=== PATIENT | male | born 1955 ===

== ENCOUNTER 2025-10-24 20:22 | Outpatient (REF) | payer MEDICARE, SELFPAY ==
--- OUTSIDE RECORDS SUMMARY | 2025-10-24 10:30 | XMS_ITS | Encounter Summary ---
Author Organization [facility] Address [address] [place] [address] Care Team Providers Care Gauge Maker Apprentice Name Role Phone Mich Grimes Primary Care Provider [phone] Encounter Details Date Type Department Care Team (Late st Contact Info) Description 10/24/2025 10:30 AM EST Office Visit [facility] Heart & Vascular [facility] [address] [place] [address] [phone] Felipe Sweeney MD [address] [address] Chronic heart failure with reduced ejection fraction (HFrEF, <= 40%) and combined systolic and diastolic dysfunction (HCC) (Primary Dx); Type 2 diabetes mellitus without complication, without long-term current use of insulin (HCC) Social History Tobacco Use Types Packs/Day Years Used Date Smoking Tobacco: Every Day Cigarettes 0.3 16.7 Started: 02/27/2009 Smokeless Tobacco: Former Quit: 03/07/2024 Tobacco Cessation:Ready to Q uit: Not Asked; Counseling Given: Not Answered Comments:Down to 5 a day; nicotine patch in place Alcohol Use Standard Drinks/Week Comments Not Currently 0 (1 standard drink = 0.6 oz pur e alcohol) Sex and Gender Information Value Date Recorded Sex Assigned at Male 04/11/2024 10:17 AM EDT Legal Sex Male 3:27 PM EDT Gender Identity Male 04/11/2024 10:17 AM EDT Sexual Orientation Heterosexual (straight) 04/11 10:17 AM EDT documented as of this encounter Last Filed Vital Signs Vital Sign Reading Time Taken Comments Blood Pressure 121/57 10/24/2025 10:32 AM EST Pulse 59 10/24/2025 10:32 AM EST Temperature - - Respiratory Rate - - Oxygen Saturation 100% 10/24/2025 10:32 AM EST Inhaled Oxygen Concentration - - Weight 93.9 kg (207 lb) 10/24/2025 10:32 AM EST Height 180.3 cm (5' 11 ) 10/24/2025 10:32 AM EST Body Mass Index 28.87 10/24/2025 10:32 AM EST documented in this encounter Patient Instructions * Patient Instructions* Felipe Sweeney MD - 10/24/2025 11:40 AM EST Increase metoprolol to 100 mg daily Stop Losartan Start Entresto 1 pill twice a day We will stop milrinone and maintain the line for 5-7 days and if you continue to feel well and no new change then we will make arrangements for your to get rid of the line as well Call if any issues [phone] Email: [email or web address] Follow up in 3 months or as needed earlier documented in this encounter Plan of Treatment Upcoming Encounters Date Type Department Care Team (Late st Contact Info) Description 01/27/2026 11:00 AM EDT Office Visit [facility] Heart & Vascular [place] [facility] [address] [place], [place] [address] [place] [phone] Felipe Sweeney MD [address] [place] [phone] documented as of this encounter Visit Diagnoses Diagnosis Chronic heart failure with reduced ejection fraction (HFrEF, <= 40%) and combined systolic and diastolic dysfunction (HCC)- Primary Type 2 diabetes mellitus without complication, without long-term current use of insulin (HCC) documented in this encounter Care Teams Gauge Maker Apprentice Relationship Specialty Start Date End Date Mich Grimes PA [address] [place] [address] PCP - General Adult Health - DANIELLA/JUAN/RADIOLOGICAL ENGINEER/[place] 03/07/24 documented as of this encounter
--- OUTSIDE RECORDS SUMMARY | 2025-10-24 20:38 | XMS_ITS | Encounter Summary ---
Author Organization [facility] Address [facility] [address] [place] [phone] Phone Care Team Providers Care Portfolio Mgr Name Role Phone Priya Kyle MD Unavailable [phone] Encounter Details Date Type Department Care Team (Late st Contact Info) Description 06/26/2023 Procedure Pass [facility] MR Imaging, [place] [address] [place] [address] Social History Tobacco Use Types Packs/Day Years Used Date Smoking Tobacco: Every Day Cigarettes 0.3 13 Started: 2012 Alcohol Use Standard Drinks/Week Comments Yes 1 (1 standard drink = 0.6 oz pur e alcohol) Home Health Assessment: Transportation Answer Date Recorded Lack of Transportation (Medical) No 05/20/2023 Lack of Transportation (Non-Medical) No 05/20/2023 Patient Unable or Declines to Respond No 05/20/2023 Child or Family Care Answer Date Record ed Do you have problems with on e of the following making it difficult for you to work, study, or receive health care? No 06/01/2023 Education Answer Date Recorded Are you interested in help w ith more adult education (for example, completing high school, GED, job training, learning the Korean language, technical skills, or developing parenting skills)? No 06/01/2023 Are you concerned about learning? Not on file 06/01/2023 No 06/01/2023 Yes 06/01/2023 Food Answer Date Recorded Within the past 6 months we worried whether our food would run out before we got money to buy more. Never True 06/01/2023 Within the past 6 months the food we bought just didn't last and we didn't have enough money to get more. Never True Residential Stability Answer Date Recor ded What is your housing situation today? I have crista james 06/01/2023 How many times have you move d in the past 12 months? Zero (I did not move) 06/01/2023 Paying for Meds Answer Date Recorded Do you have trouble paying for medicines? Yes 06/01/2023 Paying Utility Bills Answer Date Record ed Do you have trouble paying your heating or elect ricity bill? No 06/01/2023 Transportation Answer Date Recorded Has the lack of transportati on kept you from medical appointments or from getting medications? Yes 06/01/2023 Unemployment Answer Date Recorded Are you currently unemployed or working on a part-time or temporary basis, and looking for work? No 10/06/2022 Digital Access Answer Date Recorded No 06/01/2023 Yes 06/01/2023 Do you have reliable internet access at home? Ye s 06/01/2023 Do you have a device (e.g., phone, tablet, computer) with a working camera? Yes 06/01/2023 Sex and Gender Information Value Date Recorded Sex Assigned at Not on file Legal Sex Male 3:56 PM EDT Gender Identity Not on file Sexual Orientation Not on file documented as of this encounter Plan of Treatment Not on file documented as of this encounter Visit Diagnoses Not on filedocumented in this encounter Additional Health Concerns Assessment Noted Time PHQ-2 Depression Total Score: 0 10/17/20 22 1:35 PM EST documented as of this encounter Care Teams Portfolio Mgr Relationship Specialty Start Date End Date Priya Kyle MD [address] [place] [phone] [email or web address] Attributed Provider 11/12/22 03/15/24 documented as of this encounter Additional Source Comments The information contained in this document represents components of the legal health record. It is not the complete legal health record.[facility]
--- OUTSIDE RECORDS SUMMARY | 2025-10-24 20:38 | XMS_ITS | Encounter Summary ---
Author Organization [facility] Address [facility] [email or web address] [facility] [address] [place] [address] Phone Care Team Providers Care Traffic Operations Engineer Name Role Phone Priya Kyle MD Unavailable [phone] Encounter Details Date Type Department Care Team (Late st Contact Info) Description 06/26/2023 Procedure Pass [facility] MR Imaging, [place] [address] [place] [address] Social History Tobacco Use Types Packs/Day Years [...] high school, GED, job training, learning the Serbian language, technical skills, or developing parenting skills)? [...] documented as of this encounter Care Teams Traffic Operations Engineer Relationship Specialty Start Date End Date Priya Kyle MD [address] [place] [phone] [email or web address] Attributed Provider 11/12/22 03/15/24 documented as of this encounter Additional Source Comments The information contained in this document represents components of the legal health record. It is not the complete legal health record.[facility]
--- OUTSIDE RECORDS SUMMARY | 2025-10-24 20:38 | XMS_ITS | Encounter Summary ---
Author Organization [employer] [facility] Address [address] [place] [address] Phone Care Team Providers Care Alligator Hunter Name Role Phone Priya Kyle MD Unavailable [phone] Encounter Details Date Type Department Care Team (Late st Contact Info) Description 07/21/2023 Procedure Pass [facility]' Cardiac Yeast Culture Operator [address] [place] [address] Social History Tobacco Use Types Packs/Day Years Used Date Smoking Tobacco: Every Day Cigarettes 0.3 13 Started: 2012 Smokeless Tobacco: Never Alcohol Use Standard Drinks/Week Comments Yes 1 [...] high school, GED, job training, learning the Arabic language, technical skills, or developing parenting skills)? [...] documented as of this encounter Care Teams Alligator Hunter Relationship Specialty Start Date End Date Priya Kyle MD [address] [place] [address] [email or web address] Attributed Provider 11/12/22 03/15/24 documented as of this encounter Additional Source Comments The information contained in this document represents components of the legal health record. It is not the complete legal health record.[facility]
--- OUTSIDE RECORDS SUMMARY | 2025-10-24 20:38 | XMS_ITS | Encounter Summary ---
Author Organization [facility] Address [address] [place] [address] Care Team Providers Care Airplane Cleaner Name Role Phone Mich Grimes Primary Care Provider [phone] Encounter Details Date Type Department Care Team (Late st Contact Info) Description 03/06/2024 Scanned Document [facility] [address] [place] [phone] Provider, Generic Social History Tobacco Use Types Packs/Day Years Used Date Smoking Tobacco: Never Assessed Sex and Gender Information Value Date Recorded Sex Assigned at Male 04/11/2024 10:17 AM EDT Legal Sex Male 3:27 PM EDT Gender Identity Male 04/11/2024 10:17 AM EDT Sexual Orientation Heterosexual (straight) 04/11 10:17 AM EDT documented as of this encounter Plan of Treatment Upcoming Encounters Date Type Department Care Team (Late st Contact Info) Description 01/27/2026 11:00 AM EDT Office Visit [facility] Heart [facility] 85 [facility] [address] [place] [phone] Felipe Sweeney MD [address] [address] documented as of this encounter Visit Diagnoses Not on filedocumented in this encounter Care Teams Airplane Cleaner Relationship Specialty Start Date End Date Mich Grimes PA [address] [place] [address] PCP - General Adult Health - [place]/APNP/LEAN SIX SIGMA BLACK BELT/FRAME FEEDER 03/07/24 documented as of this encounter
--- OUTSIDE RECORDS SUMMARY | 2025-10-24 20:38 | XMS_ITS | Encounter Summary ---
Author Organization [facility] Address [facility] [employer] [facility] [address] [place] [address] Phone Care Team Providers Care Coastal And Estuary Specialist Name Role Phone Priya Kyle MD Unavailable [phone] Encounter Details Date Type Department Care Team (Late st Contact Info) Description 06/26/2023 Procedure Pass [facility] MR Imaging, [place] [address] [place] [address] Social History Tobacco Use Types Packs/Day Years [...] high school, GED, job training, learning the Hungarian language, technical skills, or developing parenting skills)? [...] documented as of this encounter Care Teams Coastal And Estuary Specialist Relationship Specialty Start Date End Date Priya Kyle MD [address] [place] [phone] [email or web address] Attributed Provider 11/12/22 03/15/24 documented as of this encounter Additional Source Comments The information contained in this document represents components of the legal health record. It is not the complete legal health record.[facility]
--- OUTSIDE RECORDS SUMMARY | 2025-10-24 20:38 | XMS_ITS ---
Author Name [facility] Organization Unknown Results Test Name/Text Value Interpretation Date Range Source PHOSPHORUS 3.7 mg/dL 09/19/20 25 2.4 - 4.8 [facility] INTACT PARATHYROID HORMONE 254.0 pg/mL Above high normal 09/19/20 25 15 - 88 [facility] VITAMIN D, 25H 9.0 ng/mL Below low normal 09/19/20 25 - [facility] BICARBONATE 16.0 mmol/L Below low normal 09/19/20 25 23 - 32 [facility] POTASSIUM 4.9 mmol/L 09/19/20 25 3.6 - 5.1 [facility] CALCIUM, TOTAL 9.0 mg/dL 09/19/20 25 8.4 - 10.2 [facility] GLUCOSE 170.0 mg/dL 09/19/20 25 70 - 200 [facility] GLOMERULAR FILTRATION RATE ML/MIN/1.73 SQ M.PREDICTED 30.0 mL/min/1.73m*2 Below low normal 09/19/20 25 60 - [facility] ANION GAP 10.0 mmol/L 09/19/20 25 3 - 11 [facility] CREATININE 2.3 mg/dL Above high normal 09/19/20 25 0.6 - 1.2 [facility] UREA NITROGEN 46.0 mg/dL Above high normal 09/19/20 25 8 - 24 [facility] CHLORIDE 109.0 mmol/L 09/19/20 25 100 - 111 [facility] SODIUM 135.0 mmol/L Below low normal 09/19/20 25 137 - 144 [facility] MICROALBUMIN/CREATINI NE 48.0 mg/g Creat Above high normal 09/19/20 25 2 - 20 [facility] CREATININE, RANDOM 104.0 mg/dL 09/19/20 25 [facility] MICROALBUMIN, URINE, RANDOM 5.0 mg/dL 09/19/20 25 [facility] PROTEIN, RANDOM URINE 18.0 mg/dL [facility] PROTEIN / CREATININE RATIO 0.17 Ratio 09/19/20 - 0.2 [facility] CLARITY OF URINE Clear 09/19/20 - [facility] UROBILINOGEN, URINE 0.2 EU/dL 09/19/20 0.2 - 1 [facility] RBC 0-2 09/19/20 0 - 2 [facility] EPITHELIAL CELLS None Seen 09/19/20 - [facility] HEMOGLOBIN, URINE Negative 09/19/20 - [facility] LEUKOCYTE ESTERASE Negative 09/19/20 - [facility] COLOR OF URINE Yellow 09/19/20 - [facility] KETONES URINE Negative 09/19/20 - [facility] PH OF URINE 5.0 09/19/20 5 - 8 [facility] SYSMEX CASTS 0-2 09/19/20 - [facility] PROTEIN QUAL Trace 09/19/20 - [facility] BILIRUBIN, URINE Negative 09/19/20 - [facility] WBC 0-5 09/19/20 0 - 5 [facility] NITRITE Negative 09/19/20 - [facility] GLUCOSE QUAL >=1000 Abnormal 09/19/20 - [facility] SPECIFIC GRAVITY 1.02 09/19/20 - [facility] BACTERIA None Seen 09/19/20 - [facility] HEMOGLOBIN 11.3 g/dL Below low normal 09/19/20 13 - 18 [facility] HEMATOCRIT 33.8 % Below low normal 09/19/20 40 - 52 [facility] PROTEIN, POC Negative 08/05/20 - [facility] MACHINE PULLER ID [id number] 08/05/20 [facility] INSTRUMENT ID [id number] 08/05/20 [facility] TEST STRIP EXP DATE 08/05/20 [facility] GLUCOSE URINE, POC 250.0 mg/dL Abnormal 08/05/20 - [facility] KETONES URINE Negative 08/05/20 - [facility] TEST STRIP LOT # 08/05/20 [facility] LEUKOCYTE, POC Negative 08/05/20 - [facility] BILI, POC Negative 08/05/20 - [facility] BLOOD, URINE, POC Negative 08/05/20 - [facility] COLOR, POC Yellow 09/30/20 25 - [facility] SPECIFIC GRAVITY, POC 1.01 25 1.003 - 1.035 [facility] PH, POC 5.5 08/05/20 25 5 - 8 [facility] UROBILINOGEN, POC 0.2 EU/dL 08/05/20 25 - [facility] CLARITY, POC Clear 08/05/20 25 - [facility] NITRITE, POC Negative 08/05/20 25 - [facility] HEMOGLOBIN A1C POC 7.7 % 03/21/20 25 - [facility] POCT GLUCOSE 180.0 mg/dL Normal 02/08/20 25 70 - 200 [facility] POCT GLUCOSE 140.0 mg/dL Normal 02/08/20 25 70 - 200 [facility] MAGNESIUM 2.1 mg/dL Normal 02/08/20 25 1.8 - 3 [facility] ANION GAP 15.0 mmol/L Above high normal 02/08/20 25 3 - 11 [facility] SODIUM 138.0 mmol/L Normal 02/08/20 25 137 - 144 [facility] CREATININE 2.8 mg/dL Above high normal 02/08/20 25 0.6 - 1.2 [facility] CALCIUM, TOTAL 9.4 mg/dL Normal 02/08/20 25 8.4 - 10.2 [facility] CHLORIDE 97.0 mmol/L Below low normal 02/08/20 25 100 - 111 [facility] GLUCOSE 135.0 mg/dL Normal 02/08/20 25 70 - 200 [facility] UREA NITROGEN 58.0 mg/dL Above high normal 02/08/20 25 8 - 24 [facility] BICARBONATE 26.0 mmol/L Normal 02/08/20 25 23 - 32 [facility] GLOMERULAR FILTRATION RATE ML/MIN/1.73 SQ M.PREDICTED 24.0 mL/min/1.73m*2 Below low normal 02/08/20 25 60 - [facility] POTASSIUM 3.7 mmol/L Normal 02/08/20 25 3.6 - 5.1 [facility] PHOSPHORUS 4.0 mg/dL Normal 02/08/20 25 2.4 - 4.8 [facility] HEMATOCRIT 31.2 % Below low normal 02/08/20 25 40 - 52 [facility] MCH 31.2 pg Normal 02/08/20 25 26 - 34 [facility] RED CELL COUNT 3.33 10*6/ L Below low normal 02/08/20 25 4.4 - 5.9 [facility] MCV 93.7 fL Normal 02/08/20 25 80 - 100 [facility] IPF % 7.9 % Normal 02/08/20 25 1 - 7.9 [facility] PLATELET COUNT 141.0 10*3/uL Below low normal 02/08/20 25 150 - 440 [facility] HEMOGLOBIN 10.4 g/dL Below low normal 02/08/20 25 13 - 18 [facility] RBC DISTRIBUTION WIDTH 11.7 % Normal 02/08/20 25 11.6 - 14.8 [facility] WHITE CELL COUNT 8.4 10*3/uL Normal 02/08/20 25 3.8 - 10.6 [facility] MPV 12.7 fL Above high normal 02/08/20 25 9.4 - 12.4 [facility] MCHC 33.3 g/dL Normal 02/08/20 25 32 - 36 [facility] AUTO NRBC % 0.0 % Normal 02/08/20 25 0 - 0 [facility] POCT GLUCOSE 159.0 mg/dL Normal 02/08/20 25 70 - 200 [facility] CALCIUM, TOTAL 9.7 mg/dL Normal 02/07/20 25 8.4 - 10.2 [facility] GLOMERULAR FILTRATION RATE ML/MIN/1.73 SQ M.PREDICTED 24.0 mL/min/1.73m*2 Below low normal 02/07/20 25 60 - [facility] CHLORIDE 98.0 mmol/L Below low normal 02/07/20 25 100 - 111 [facility] SODIUM 136.0 mmol/L Below low normal 02/07/20 25 137 - 144 [facility] UREA NITROGEN 59.0 mg/dL Above high normal 02/07/20 25 8 - 24 [facility] GLUCOSE 169.0 mg/dL Normal 02/07/20 25 70 - 200 [facility] POTASSIUM 4.4 mmol/L Normal 02/07/20 25 3.6 - 5.1 [facility] ANION GAP 13.0 mmol/L Above high normal 02/07/20 25 3 - 11 [facility] BICARBONATE 25.0 mmol/L Normal 02/07/20 25 23 - 32 [facility] CREATININE 2.8 mg/dL Above high normal 02/07/20 25 0.6 - 1.2 [facility] PHOSPHORUS 3.9 mg/dL Normal 02/07/20 25 2.4 - 4.8 [facility] MAGNESIUM 2.2 mg/dL Normal 02/07/20 25 1.8 - 3 [facility] POCT GLUCOSE 195.0 mg/dL Normal 02/07/20 25 70 - 200 [facility] POCT GLUCOSE 204.0 mg/dL Above high normal 02/07/20 25 70 - 200 [facility] POCT GLUCOSE 141.0 mg/dL Normal 02/07/20 25 70 - 200 [facility] MAGNESIUM 2.1 mg/dL Normal 02/07/20 25 1.8 - 3 [facility] POTASSIUM 3.5 mmol/L Below low normal 02/07/20 25 3.6 - 5.1 [facility] UREA NITROGEN 54.0 mg/dL Above high normal 02/07/20 25 8 - 24 [facility] ANION GAP 14.0 mmol/L Above high normal 02/07/20 25 3 - 11 [facility] CALCIUM, TOTAL 9.1 mg/dL Normal 02/07/20 25 8.4 - 10.2 [facility] GLUCOSE 163.0 mg/dL Normal 02/07/20 25 70 - 200 [facility] GLOMERULAR FILTRATION RATE ML/MIN/1.73 SQ M.PREDICTED 25.0 mL/min/1.73m*2 Below low normal 02/07/20 25 60 - [facility] CHLORIDE 98.0 mmol/L Below low normal 02/07/20 25 100 - 111 [facility] SODIUM 139.0 mmol/L Normal 02/07/20 25 137 - 144 [facility] CREATININE 2.7 mg/dL Above high normal 02/07/20 25 0.6 - 1.2 [facility] BICARBONATE 27.0 mmol/L Normal 02/07/20 25 23 - 32 [facility] PHOSPHORUS 4.1 mg/dL Normal 02/07/20 25 2.4 - 4.8 [facility] HEMOGLOBIN 10.2 g/dL Below low normal 02/07/20 25 13 - 18 [facility] MCV 93.5 fL Normal 02/07/20 25 80 - 100 [facility] MCH 31.7 pg Normal 02/07/20 25 26 - 34 [facility] HEMATOCRIT 30.1 % Below low normal 02/07/20 25 40 - 52 [facility] WHITE CELL COUNT 6.4 10*3/uL Normal 02/07/20 25 3.8 - 10.6 [facility] AUTO NRBC % 0.0 % Normal 02/07/20 25 0 - 0 [facility] MPV 12.0 fL Normal 02/07/20 25 9.4 - 12.4 [facility] RBC DISTRIBUTION WIDTH 11.6 % Normal 02/07/20 25 11.6 - 14.8 [facility] PLATELET COUNT 136.0 10*3/uL Below low normal 02/07/20 25 150 - 440 [facility] IPF % 6.3 % Normal 02/07/20 25 1 - 7.9 [facility] MCHC 33.9 g/dL Normal 02/07/20 25 32 - 36 [facility] RED CELL COUNT 3.22 10*6/ L Below low normal 02/07/20 25 4.4 - 5.9 [facility] POCT GLUCOSE 202.0 mg/dL Above high normal 02/07/20 25 70 - 200 [facility] PHOSPHORUS 4.0 mg/dL Normal 02/07/20 25 2.4 - 4.8 [facility] MAGNESIUM 2.3 mg/dL Normal 02/07/20 25 1.8 - 3 [facility] GLUCOSE 160.0 mg/dL Normal 02/07/20 25 70 - 200 [facility] SODIUM 138.0 mmol/L Normal 02/07/20 25 137 - 144 [facility] CALCIUM, TOTAL 9.8 mg/dL Normal 02/07/20 25 8.4 - 10.2 [facility] GLOMERULAR FILTRATION RATE ML/MIN/1.73 SQ M.PREDICTED 26.0 mL/min/1.73m*2 Below low normal 02/07/20 25 60 - [facility] CREATININE 2.6 mg/dL Above high normal 02/07/20 25 0.6 - 1.2 [facility] POTASSIUM 4.2 mmol/L Normal 02/07/20 25 3.6 - 5.1 [facility] UREA NITROGEN 54.0 mg/dL Above high normal 02/07/20 25 8 - 24 [facility] CHLORIDE 96.0 mmol/L Below low normal 02/07/20 25 100 - 111 [facility] ANION GAP 15.0 mmol/L Above high normal 02/07/20 25 3 - 11 [facility] BICARBONATE 27.0 mmol/L Normal 02/07/20 25 23 - 32 [facility] POCT GLUCOSE 151.0 mg/dL Normal 02/06/20 25 70 - 200 [facility] POCT GLUCOSE 204.0 mg/dL Above high normal 02/06/20 25 70 - 200 [facility] POCT GLUCOSE 131.0 mg/dL Normal 02/06/20 25 70 - 200 [facility] LACTIC ACID 0.8 mmol/L Normal 02/06/20 25 0.5 - 1.9 [facility] CHLORIDE 99.0 mmol/L Below low normal 02/06/20 25 100 - 111 [facility] SODIUM 139.0 mmol/L Normal 02/06/20 25 137 - 144 [facility] GLOMERULAR FILTRATION RATE ML/MIN/1.73 SQ M.PREDICTED 25.0 mL/min/1.73m*2 Below low normal 02/06/20 25 60 - [facility] CREATININE 2.7 mg/dL Above high normal 02/06/20 25 0.6 - 1.2 [facility] ANION GAP 13.0 mmol/L Above high normal 02/06/20 25 3 - 11 [facility] CALCIUM, TOTAL 9.2 mg/dL Normal 02/06/20 25 8.4 - 10.2 [facility] GLUCOSE 120.0 mg/dL Normal 02/06/20 25 70 - 200 [facility] BICARBONATE 27.0 mmol/L Normal 02/06/20 25 23 - 32 [facility] POTASSIUM 3.4 mmol/L Below low normal 02/06/20 25 3.6 - 5.1 [facility] UREA NITROGEN 54.0 mg/dL Above high normal 02/06/20 25 8 - 24 [facility] PHOSPHORUS 4.1 mg/dL Normal 02/06/20 25 2.4 - 4.8 [facility] MAGNESIUM 1.9 mg/dL Normal 02/06/20 25 1.8 - 3 [facility] MPV 12.3 fL Normal 02/06/20 25 9.4 - 12.4 [facility] MCH 31.2 pg Normal 02/06/20 25 26 - 34 [facility] IPF % 7.0 % Normal 02/06/20 25 1 - 7.9 [facility] RED CELL COUNT 3.27 10*6/ L Below low normal 02/06/20 25 4.4 - 5.9 [facility] HEMATOCRIT 31.0 % Below low normal 02/06/20 25 40 - 52 [facility] RBC DISTRIBUTION WIDTH 11.8 % Normal 02/06/20 25 11.6 - 14.8 [facility] WHITE CELL COUNT 6.5 10*3/uL Normal 02/06/20 25 3.8 - 10.6 [facility] PLATELET COUNT 141.0 10*3/uL Below low normal 02/06/20 25 150 - 440 [facility] MCV 94.8 fL Normal 02/06/20 25 80 - 100 [facility] HEMOGLOBIN 10.2 g/dL Below low normal 02/06/20 25 13 - 18 [facility] MCHC 32.9 g/dL Normal 02/06/20 25 32 - 36 [facility] AUTO NRBC % 0.0 % Normal 02/06/20 25 0 - 0 [facility] PH OF VENOUS BLOOD 7.461 Above high normal 12/26 25 7.2 - 7.4 [facility] DEOXYHEMOGLOBIN VENOUS 37.0 % Above high normal 02/06/20 25 0 - 5 [facility] TOTAL HEMOGLOBIN 11.3 g/dL Below low normal 0 25 14 - 18 [facility] ACTUAL BICARBONATE (MMOL/L) IN VENOUS BLOOD 30.2 mmol/L Above high normal 02/06/20 25 22 - 26 [facility] CARBOXYHEMOGLOBIN % 1.3 % Normal 02/06/20 25 0.5 - 3 [facility] BAROMETRIC PRESSURE 760.0 mmHg Normal 02/06/20 25 [facility] PARTIAL PRESSURE CARBON DIOXIDE IN VENOUS BLOOD 43.4 mmHg Normal 02/06/20 25 40 - 50 [facility] OXYHEMOGLOBIN 61.4 % Below low normal 02/06/20 25 95 - 100 [facility] BASE EXCESS (MMOL/L) IN VENOUS BLOOD BY CALCULATION 5.8 mmol/L Above high normal 02/06/20 25 - [facility] METHEMOGLOBIN % IN BLOOD 0.3 % Normal 02/06/20 25 0 - 1.5 [facility] PARTIAL PRESSURE OF OXYGEN (MMHG) IN VENOUS 33.1 mmHg Below low normal 02/06/20 25 35 - 50 [facility] MEASURED O2 SATURATION (%) VENOUS 62.4 % Below low normal 02/06/20 25 90 - 100 [facility] BG OXYGEN DEVICE Room Air Normal 02/06/20 25 [facility] OXYGEN CONTENT IN VENOUS 9.7 mL/dL Below low normal 02/06/20 25 15 - 23 [facility] FRACTIONAL INSPIRED OXYGEN CONCENTRATION Normal 02/06/20 25 [facility] POCT GLUCOSE 179.0 mg/dL Normal 02/06/20 25 70 - 200 [facility] POCT GLUCOSE 156.0 mg/dL Normal 02/05/20 25 70 - 200 [facility] MAGNESIUM 2.0 mg/dL Normal 02/05/20 25 1.8 - 3 [facility] LACTIC ACID 1.1 mmol/L Normal 02/05/20 25 0.5 - 1.9 [facility] CALCIUM, TOTAL 9.2 mg/dL Normal 02/05/20 25 8.4 - 10.2 [facility] CHLORIDE 99.0 mmol/L Below low normal 02/05/20 25 100 - 111 [facility] UREA NITROGEN 51.0 mg/dL Above high normal 02/05/20 25 8 - 24 [facility] CREATININE 2.8 mg/dL Above high normal 02/05/20 25 0.6 - 1.2 [facility] GLUCOSE 169.0 mg/dL Normal 02/05/20 25 70 - 200 [facility] POTASSIUM 4.1 mmol/L Normal 02/05/20 25 3.6 - 5.1 [facility] GLOMERULAR FILTRATION RATE ML/MIN/1.73 SQ M.PREDICTED 24.0 mL/min/1.73m*2 Below low normal 02/05/20 25 60 - [facility] SODIUM 136.0 mmol/L Below low normal 02/05/20 25 137 - 144 [facility] ANION GAP 12.0 mmol/L Above high normal 02/05/20 25 3 - 11 [facility] BICARBONATE 25.0 mmol/L Normal 02/05/20 25 23 - 32 [facility] POCT GLUCOSE 206.0 mg/dL Above high normal 02/05/20 25 70 - 200 [facility] POCT GLUCOSE 160.0 mg/dL Normal 02/05/20 25 70 - 200 [facility] IRON SATURATION (%) IN SER/PLAS 9.0 % Normal 02/05/20 25 [facility] IRON 35.0 ug/dL Below low normal 02/05/20 25 48 - 182 [facility] IRON BINDING CAPACITY 390.0 ug/dL Normal 25 260 - 490 [facility] FERRITIN 33.0 ng/mL Normal 02/05/20 25 16 - 336 [facility] BICARBONATE 24.0 mmol/L Normal 02/05/20 25 23 - 32 [facility] ANION GAP 15.0 mmol/L Above high normal 02/05/20 25 3 - 11 [facility] GLUCOSE 150.0 mg/dL Normal 02/05/20 25 70 - 200 [facility] CREATININE 2.8 mg/dL Above high normal 02/05/20 25 0.6 - 1.2 [facility] POTASSIUM 4.0 mmol/L Normal 02/05/20 25 3.6 - 5.1 [facility] CHLORIDE 98.0 mmol/L Below low normal 02/05/20 25 100 - 111 [facility] CALCIUM, TOTAL 9.4 mg/dL Normal 02/05/20 25 8.4 - 10.2 [facility] UREA NITROGEN 53.0 mg/dL Above high normal 02/05/20 25 8 - 24 [facility] SODIUM 137.0 mmol/L Normal 02/05/20 25 137 - 144 [facility] GLOMERULAR FILTRATION RATE ML/MIN/1.73 SQ M.PREDICTED 24.0 mL/min/1.73m*2 Below low normal 02/05/20 25 60 - [facility] MAGNESIUM 2.0 mg/dL Normal 02/05/20 25 1.8 - 3 [facility] MCH 31.4 pg Normal 02/05/20 25 26 - 34 [facility] IMMATURE GRANULOCYTE % 0.2 % Normal 02/05/20 25 0 - 0.6 [facility] ABSOLUTE IMMATURE GRANULOCYTES 0.01 10*3/uL Normal 02/05/20 25 [facility] HEMATOCRIT 31.9 % Below low normal 02/05/20 25 40 - 52 [facility] MONOCYTE % 9.7 % Normal 02/05/20 25 4 - [address] [facility] [address] 0.79 10*3/uL Normal 02/05/20 25 0.7 - 4.5 [facility] LYMPHOCYTE % 12.6 % Below low normal 02/05/20 25 20 - [address] [facility] [address] 0.33 10*3/uL Above high normal 02/05/20 25 0 - 0.3 [facility] NEUTROPHIL % 71.8 % Above high normal 02/05/20 25 40 - 70 [facility] MCV 94.4 fL Normal 02/05/20 25 80 - 100 [facility] EOSINOPHIL % 5.2 % Normal 02/05/20 25 0 - 6 [facility] PLATELET COUNT 136.0 10*3/uL Below low normal 02/05/20 25 150 - 440 [facility] MCHC 33.2 g/dL Normal 02/05/20 25 32 - 36 [facility] RED CELL COUNT 3.38 10*6/ L Below low normal 02/05/20 25 4.4 - 5.9 [facility] MPV 13.2 fL Above high normal 02/05/20 25 9.4 - 12.[address] [facility] [address] 4.52 10*3/uL Normal 02/05/20 25 1.4 - 6.[address] [facility] [address] 0.03 10*3/uL Normal 0 25 0 - 0.2 [facility] IPF % 7.1 % Normal 02/05/20 25 1 - 7.9 [facility] RBC DISTRIBUTION WIDTH 11.9 % Normal 02/05/20 25 11.6 - 14.8 [facility] BASOPHILS % 0.5 % Normal 02/05/20 25 0 - 2 [facility] AUTO NRBC % 0.0 % Normal 02/05/20 25 0 - 0 [facility] HEMOGLOBIN 10.6 g/dL Below low normal 02/05/20 25 13 - [address] [facility] [address] 0.61 10*3/uL Normal 25 0.2 - 0.8 [facility] WHITE CELL COUNT 6.3 10*3/uL Normal 02/05/20 25 3.8 - 10.6 [facility] CREATININE, RANDOM 53.0 mg/dL Normal 02/05/20 25 [facility] SODIUM, RANDOM 79.0 mmol/L Normal 02/05/20 25 [facility] POTASSIUM, RANDOM 40.0 mmol/L Normal 02/05/20 25 [facility] CHLORIDE, RANDOM 95.0 mmol/L Normal 02/05/20 25 [facility] EPITHELIAL CELLS None Seen Normal 02/05/20 25 - [facility] WBC 0-5 Normal 02/05/20 25 0 - 5 [facility] PROTEIN QUAL Negative Normal 02/05/20 25 - [facility] SPECIFIC GRAVITY 1.01 Normal 02/05/20 25 - [facility] HEMOGLOBIN, URINE Negative Normal 02/05/20 25 - [facility] SYSMEX CASTS 0-2 Normal 02/05/20 25 - [facility] GLUCOSE QUAL >=1000 Abnormal 02/05/20 25 - [facility] RBC 0-2 Normal 02/05/20 25 0 - 2 [facility] UROBILINOGEN, URINE 0.2 EU/dL Normal 02/05/20 0.2 - 1 [facility] BILIRUBIN, URINE Negative Normal 02/05/20 - [facility] PH OF URINE 6.5 Normal 02/05/20 5 - 8 [facility] LEUKOCYTE ESTERASE Negative Normal 02/05/20 25 - [facility] BACTERIA None Seen Normal 02/05/20 25 - [facility] COLOR OF URINE Yellow Normal 02/05/20 - [facility] KETONES URINE Negative Normal 02/05/20 - [facility] NITRITE Negative Normal 02/05/20 25 - [facility] CLARITY OF URINE Clear Normal 02/05/20 25 - [facility] IRON BINDING CAPACITY 392.0 ug/dL Normal 260 - 490 [facility] IRON SATURATION (%) IN SER/PLAS 6.0 % Normal 02/05/20 [facility] IRON 25.0 ug/dL Below low normal 02/05/20 48 - 182 [facility] FERRITIN 32.0 ng/mL Normal 02/05/20 16 - 336 [facility] POCT GLUCOSE 142.0 mg/dL Normal 02/05/20 70 - 200 [facility] LACTIC ACID 1.7 mmol/L Normal 02/05/20 0.5 - 1.9 [facility] IRON BINDING CAPACITY 389.0 ug/dL Normal 260 - 490 [facility] IRON 24.0 ug/dL Below low normal 02/05/20 48 - 182 [facility] FERRITIN 32.0 ng/mL Normal 02/05/20 16 - 336 [facility] IRON SATURATION (%) IN SER/PLAS 6.0 % Normal 02/05/20 [facility] THYROID STIM HORMONE 2.95 uIU/mL Normal 0 25 0.35 - 4.94 [facility] POCT GLUCOSE 248.0 mg/dL Above high normal 02/04/20 70 - 200 [facility] MACHINE PULLER ID [id number] Normal 02/04/20 [facility] INSTRUMENT ID [id number] Normal 02/04/20 [facility] OXYHEMOGLOBIN - HBO2 (%) 57.4 % Normal 02/04/20 40 - 90 [facility] SITE Pulmonary artery wedge Normal 02/03 [facility] OXYHEMOGLOBIN - HBO2 (%) 57.9 % Normal 02/04/20 [facility] INSTRUMENT ID [id number] Normal 02/04/20 25 [facility] SITE Pulmonary artery Normal 02/04/20 [facility] MACHINE PULLER ID [id number] Normal 02/04/20 [facility] SITE Right atrium Normal 02/04/20 [facility] MACHINE PULLER ID [id number] Normal 02/04/20 [facility] INSTRUMENT ID [id number] Normal 02/04/20 [facility] OXYHEMOGLOBIN - HBO2 (%) 58.2 % Normal 02/04/20 25 40 - 90 [facility] MACHINE PULLER ID [id number] Normal 02/04/20 [facility] OXYHEMOGLOBIN - HBO2 (%) 60.1 % Normal 02/04/20 40 [facility] INSTRUMENT ID [id number] Normal 02/04/20 [facility] SITE Superior vena cava Normal 02/04/20 25 [facility] POCT GLUCOSE 166.0 mg/dL Normal 02/04/20 70 - 200 [facility] POCT GLUCOSE 198.0 mg/dL Normal 02/04/20 25 70 - 200 [facility] THYROID STIM HORMONE 3.3 uIU/mL Normal 0 25 0.35 - 4.94 [facility] AST (SGOT) 14.0 U/L Below low normal 02/04/20 25 17 - 35 [facility] ALT (SGPT) 16.0 U/L Normal 02/04/20 8 - 39 [facility] ALKALINE PHOSPHATASE 85.0 U/L Normal 0 25 39 - 113 [facility] ALBUMIN, AUTOMATED 4.0 g/dL Normal 02/04/20 25 3.8 - 5.3 [facility] PROTEIN TOTAL 6.7 g/dL Normal 02/04/20 25 6.2 - 8.1 [facility] BILIRUBIN, DIRECT 0.3 mg/dL Normal 02/04/20 25 0 - 0.5 [facility] BILIRUBIN, TOTAL 0.7 mg/dL Normal 02/04/20 25 0.1 - 1.2 [facility] GLUCOSE 214.0 mg/dL Above high normal 02/04/20 25 70 - 200 [facility] CREATININE 2.8 mg/dL Above high normal 02/04/20 25 0.6 - 1.2 [facility] CHLORIDE 100.0 mmol/L Normal 02/04/20 25 100 - 111 [facility] GLOMERULAR FILTRATION RATE ML/MIN/1.73 SQ M.PREDICTED 24.0 mL/min/1.73m*2 Below low normal 02/04/20 25 60 - [facility] SODIUM 138.0 mmol/L Normal 02/04/20 25 137 - 144 [facility] UREA NITROGEN 54.0 mg/dL Above high normal 02/04/20 25 8 - 24 [facility] ANION GAP 14.0 mmol/L Above high normal 02/04/20 25 3 - 11 [facility] POTASSIUM 4.3 mmol/L Normal 02/04/20 25 3.6 - 5.1 [facility] CALCIUM, TOTAL 9.2 mg/dL Normal 02/04/20 25 8.4 - 10.2 [facility] BICARBONATE 24.0 mmol/L Normal 02/04/20 25 23 - [address] [facility] [address] 0.76 10*3/uL Normal 25 0.2 - 0.8 [facility] ABSOLUTE IMMATURE GRANULOCYTES 0.02 10*3/uL Normal 02/04/20 25 [facility] MCH 31.4 pg Normal 02/04/20 25 26 - 34 [facility] LYMPHOCYTE % 11.8 % Below low normal 02/04/20 25 20 - 50 [facility] BASOPHILS % 0.7 % Normal 02/04/20 25 0 - 2 [facility] MPV 13.0 fL Above high normal 02/04/20 25 9.4 - 12.4 [facility] HEMOGLOBIN 10.3 g/dL Below low normal 02/04/20 25 13 - 18 [facility] IMMATURE GRANULOCYTE % 0.3 % Normal 02/04/20 25 0 - 0.[address] [facility] [address] 4.69 10*3/uL Normal 02/04/20 25 1.4 - 6.[address] [facility] [address] 0.79 10*3/uL Normal 02/04/20 25 0.7 - 4.5 [facility] HEMATOCRIT 30.9 % Below low normal 02/04/20 25 40 - 52 [facility] RED CELL COUNT 3.28 10*6/ L Below low normal 02/04/20 25 4.4 - 5.[address] [facility] [address] 0.05 10*3/uL Normal 0 25 0 - 0.[address] [facility] [address] 0.36 10*3/uL Above high normal 02/04/20 25 0 - 0.3 [facility] MCHC 33.3 g/dL Normal 02/04/20 25 32 - 36 [facility] MCV 94.2 fL Normal 02/04/20 25 80 - 100 [facility] AUTO NRBC % 0.0 % Normal 02/04/20 25 0 - 0 [facility] PLATELET COUNT 133.0 10*3/uL Below low normal 02/04/20 25 150 - 440 [facility] RBC DISTRIBUTION WIDTH 11.9 % Normal 02/04/20 25 11.6 - 14.8 [facility] NEUTROPHIL % 70.4 % Above high normal 02/04/20 25 40 - 70 [facility] WHITE CELL COUNT 6.7 10*3/uL Normal 02/04/20 25 3.8 - 10.6 [facility] EOSINOPHIL % 5.4 % Normal 02/04/20 25 0 - 6 [facility] IPF % 7.4 % Normal 02/04/20 25 1 - 7.9 [facility] MONOCYTE % 11.4 % Normal 02/04/20 25 4 - 12 [facility] POCT GLUCOSE 193.0 mg/dL Normal 02/04/20 25 70 - 200 [facility] POCT GLUCOSE 194.0 mg/dL Normal 02/03/20 25 70 - 200 [facility] POCT GLUCOSE 212.0 mg/dL Above high normal 02/03/20 25 70 - 200 [facility] POCT GLUCOSE 167.0 mg/dL Normal 02/03/20 25 70 - 200 [facility] BICARBONATE 23.0 mmol/L Normal 02/03/20 25 23 - 32 [facility] SODIUM 139.0 mmol/L Normal 02/03/20 25 137 - 144 [facility] CREATININE 2.5 mg/dL Above high normal 02/03/20 25 0.6 - 1.2 [facility] GLOMERULAR FILTRATION RATE ML/MIN/1.73 SQ M.PREDICTED 27.0 mL/min/1.73m*2 Below low normal 02/03/20 25 60 - [facility] CHLORIDE 101.0 mmol/L Normal 02/03/20 25 100 - 111 [facility] CALCIUM, TOTAL 9.4 mg/dL Normal 02/03/20 25 8.4 - 10.2 [facility] POTASSIUM 3.6 mmol/L Normal 02/03/20 25 3.6 - 5.1 [facility] UREA NITROGEN 56.0 mg/dL Above high normal 02/03/20 25 8 - 24 [facility] GLUCOSE 141.0 mg/dL Normal 02/03/20 25 70 - 200 [facility] ANION GAP 15.0 mmol/L Above high normal 02/03/20 25 3 - 11 [facility] PLATELET COUNT 138.0 10*3/uL Below low normal 02/03/20 25 150 - 440 [facility] IPF % 6.8 % Normal 02/03/20 25 1 - 7.9 [facility] MCV 94.3 fL Normal 02/03/20 25 80 - 100 [facility] MPV 12.9 fL Above high normal 02/03/20 25 9.4 - 12.4 [facility] HEMOGLOBIN 9.9 g/dL Below low normal 02/03/20 25 13 - 18 [facility] MCH 31.2 pg Normal 02/03/20 25 26 - 34 [facility] RED CELL COUNT 3.17 10*6/ L Below low normal 02/03/20 25 4.4 - 5.9 [facility] RBC DISTRIBUTION WIDTH 11.9 % Normal 02/03/20 25 11.6 - 14.8 [facility] MCHC 33.1 g/dL Normal 02/03/20 25 32 - 36 [facility] HEMATOCRIT 29.9 % Below low normal 02/03/20 25 40 - 52 [facility] WHITE CELL COUNT 5.4 10*3/uL Normal 02/03/20 25 3.8 - 10.6 [facility] AUTO NRBC % 0.0 % Normal 02/03/20 25 0 - 0 [facility] PHOSPHORUS 3.9 mg/dL Normal 02/03/20 25 2.4 - 4.8 [facility] MAGNESIUM 1.9 mg/dL Normal 02/03/20 25 1.8 - 3 [facility] POCT GLUCOSE 207.0 mg/dL Above high normal 02/03/20 25 70 - 200 [facility] CREATININE 2.5 mg/dL Above high normal 02/02/20 25 0.6 - 1.2 [facility] UREA NITROGEN 57.0 mg/dL Above high normal 02/02/20 25 8 - 24 [facility] ANION GAP 13.0 mmol/L Above high normal 02/02/20 25 3 - 11 [facility] BICARBONATE 24.0 mmol/L Normal 02/02/20 25 23 - 32 [facility] GLOMERULAR FILTRATION RATE ML/MIN/1.73 SQ M.PREDICTED 27.0 mL/min/1.73m*2 Below low normal 02/02/20 25 60 - [facility] GLUCOSE 213.0 mg/dL Above high normal 02/02/20 25 70 - 200 [facility] CHLORIDE 102.0 mmol/L Normal 02/02/20 25 100 - 111 [facility] SODIUM 139.0 mmol/L Normal 02/02/20 25 137 - 144 [facility] CALCIUM, TOTAL 9.7 mg/dL Normal 02/02/20 25 8.4 - 10.2 [facility] POTASSIUM 4.4 mmol/L Normal 02/02/20 25 3.6 - 5.1 [facility] POCT GLUCOSE 204.0 mg/dL Above high normal 02/02/20 25 70 - 200 [facility] POCT GLUCOSE 228.0 mg/dL Above high normal 02/02/20 25 70 - 200 [facility] POCT GLUCOSE 172.0 mg/dL Normal 02/02/20 25 70 - 200 [facility] MAGNESIUM 1.8 mg/dL Normal 02/02/20 25 1.8 - 3 [facility] PHOSPHORUS 4.2 mg/dL Normal 02/02/20 25 2.4 - 4.8 [facility] GLUCOSE 155.0 mg/dL Normal 02/02/20 25 70 - 200 [facility] UREA NITROGEN 58.0 mg/dL Above high normal 02/02/20 25 8 - 24 [facility] CHLORIDE 103.0 mmol/L Normal 02/02/20 25 100 - 111 [facility] POTASSIUM 3.6 mmol/L Normal 02/02/20 25 3.6 - 5.1 [facility] BICARBONATE 22.0 mmol/L Below low normal 02/02/20 25 23 - 32 [facility] GLOMERULAR FILTRATION RATE ML/MIN/1.73 SQ M.PREDICTED 27.0 mL/min/1.73m*2 Below low normal 02/02/20 25 60 - [facility] CREATININE 2.5 mg/dL Above high normal 02/02/20 25 0.6 - 1.2 [facility] ANION GAP 15.0 mmol/L Above high normal 02/02/20 25 3 - 11 [facility] CALCIUM, TOTAL 9.3 mg/dL Normal 02/02/20 25 8.4 - 10.2 [facility] SODIUM 140.0 mmol/L Normal 02/02/20 25 137 - 144 [facility] RBC DISTRIBUTION WIDTH 11.9 % Normal 02/02/20 25 11.6 - 14.8 [facility] PLATELET COUNT 159.0 10*3/uL Normal 02/02/20 25 150 - 440 [facility] AUTO NRBC % 0.0 % Normal 02/02/20 25 0 - 0 [facility] WHITE CELL COUNT 6.4 10*3/uL Normal 02/02/20 25 3.8 - 10.6 [facility] MPV 12.7 fL Above high normal 02/02/20 25 9.4 - 12.4 [facility] HEMOGLOBIN 10.2 g/dL Below low normal 02/02/20 25 13 - 18 [facility] MCV 93.6 fL Normal 02/02/20 25 80 - 100 [facility] MCH 31.1 pg Normal 02/02/20 25 26 - 34 [facility] HEMATOCRIT 30.7 % Below low normal 02/02/20 25 40 - 52 [facility] RED CELL COUNT 3.28 10*6/ L Below low normal 02/02/20 25 4.4 - 5.9 [facility] MCHC 33.2 g/dL Normal 02/02/20 25 32 - 36 [facility] POCT GLUCOSE 186.0 mg/dL Normal 02/02/20 25 70 - 200 [facility] POTASSIUM 4.1 mmol/L Normal 02/01/20 25 3.6 - 5.1 [facility] CREATININE 2.2 mg/dL Above high normal 02/01/20 25 0.6 - 1.2 [facility] CHLORIDE 104.0 mmol/L Normal 02/01/20 25 100 - 111 [facility] UREA NITROGEN 59.0 mg/dL Above high normal 02/01/20 25 8 - 24 [facility] SODIUM 138.0 mmol/L Normal 02/01/20 25 137 - 144 [facility] ANION GAP 14.0 mmol/L Above high normal 02/01/20 25 3 - 11 [facility] GLOMERULAR FILTRATION RATE ML/MIN/1.73 SQ M.PREDICTED 32.0 mL/min/1.73m*2 Below low normal 02/01/20 25 60 - [facility] BICARBONATE 20.0 mmol/L Below low normal 02/01/20 25 23 - 32 [facility] CALCIUM, TOTAL 9.0 mg/dL Normal 02/01/20 25 8.4 - 10.2 [facility] GLUCOSE 169.0 mg/dL Normal 02/01/20 25 70 - 200 [facility] POCT GLUCOSE 160.0 mg/dL Normal 02/01/20 25 70 - 200 [facility] SODIUM, RANDOM 119.0 mmol/L Normal 02/01/20 25 [facility] POCT GLUCOSE 178.0 mg/dL Normal 02/01/20 25 70 - 200 [facility] POCT GLUCOSE 129.0 mg/dL Normal 02/01/20 25 70 - 200 [facility] MCV 94.5 fL Normal 02/01/20 25 80 - 100 [facility] RBC DISTRIBUTION WIDTH 11.9 % Normal 02/01/20 25 11.6 - 14.8 [facility] MCH 31.5 pg Normal 02/01/20 25 26 - 34 [facility] RED CELL COUNT 3.27 10*6/ L Below low normal 02/01/20 25 4.4 - 5.9 [facility] MCHC 33.3 g/dL Normal 02/01/20 25 32 - 36 [facility] AUTO NRBC % 0.0 % Normal 02/01/20 25 0 - 0 [facility] PLATELET COUNT 158.0 10*3/uL Normal 02/01/20 25 150 - 440 [facility] HEMATOCRIT 30.9 % Below low normal 02/01/20 25 40 - 52 [facility] WHITE CELL COUNT 6.6 10*3/uL Normal 02/01/20 25 3.8 - 10.6 [facility] HEMOGLOBIN 10.3 g/dL Below low normal 02/01/20 25 13 - 18 [facility] MPV 12.9 fL Above high normal 02/01/20 25 9.4 - 12.4 [facility] PHOSPHORUS 4.1 mg/dL Normal 02/01/20 25 2.4 - 4.8 [facility] UREA NITROGEN 59.0 mg/dL Above high normal 02/01/20 25 8 - 24 [facility] CREATININE 2.4 mg/dL Above high normal 02/01/20 25 0.6 - 1.2 [facility] SODIUM 141.0 mmol/L Normal 02/01/20 25 137 - 144 [facility] POTASSIUM 3.5 mmol/L Below low normal 02/01/20 25 3.6 - 5.1 [facility] CHLORIDE 107.0 mmol/L Normal 02/01/20 25 100 - 111 [facility] GLUCOSE 117.0 mg/dL Normal 02/01/20 25 70 - 200 [facility] GLOMERULAR FILTRATION RATE ML/MIN/1.73 SQ M.PREDICTED 29.0 mL/min/1.73m*2 Below low normal 02/01/20 25 60 - [facility] ANION GAP 14.0 mmol/L Above high normal 02/01/20 25 3 - 11 [facility] CALCIUM, TOTAL 8.9 mg/dL Normal 02/01/20 25 8.4 - 10.2 [facility] BICARBONATE 20.0 mmol/L Below low normal 02/01/20 25 23 - 32 [facility] MAGNESIUM 1.7 mg/dL Below low normal 02/01/20 25 1.8 - 3 [facility] POCT GLUCOSE 215.0 mg/dL Above high normal 02/01/20 25 70 - 200 [facility] MAGNESIUM 1.6 mg/dL Below low normal 01/31/20 25 1.8 - 3 [facility] THYROXINE (T4) FREE 1.25 ng/dL Normal 01/31/20 25 [facility] THYROID STIM HORMONE 2.52 uIU/mL Normal 0 25 0.35 - 4.94 [facility] CREATININE 2.3 mg/dL Above high normal 01/31/20 25 0.6 - 1.2 [facility] POTASSIUM 3.8 mmol/L Normal 01/31/20 25 3.6 - 5.1 [facility] CHLORIDE 106.0 mmol/L Normal 01/31/20 25 100 - 111 [facility] BICARBONATE 20.0 mmol/L Below low normal 01/31/20 25 23 - 32 [facility] GLUCOSE 174.0 mg/dL Normal 01/31/20 25 70 - 200 [facility] SODIUM 141.0 mmol/L Normal 01/31/20 25 137 - 144 [facility] ANION GAP 15.0 mmol/L Above high normal 01/31/20 25 3 - 11 [facility] UREA NITROGEN 46.0 mg/dL Above high normal 01/31/20 25 8 - 24 [facility] GLOMERULAR FILTRATION RATE ML/MIN/1.73 SQ M.PREDICTED 30.0 mL/min/1.73m*2 Below low normal 01/31/20 25 60 - [facility] CALCIUM, TOTAL 9.2 mg/dL Normal 01/31/20 25 8.4 - 10.2 [facility] LACTIC ACID 1.3 mmol/L Normal 01/31/20 25 0.5 - 1.9 [facility] SODIUM, RANDOM 108.0 mmol/L Normal 01/31/20 25 [facility] UREA NITROGEN, RANDOM 205.0 mg/dL Normal 25 [facility] CREATININE, RANDOM 28.0 mg/dL Normal 01/31/20 25 [facility] MICROALBUMIN, URINE, RANDOM 5.5 mg/dL Normal 01/31/20 25 [facility] MICROALBUMIN/CREATINI NE 196.0 mg/g Creat Above high normal 01/31/20 25 2 - 20 [facility] POCT GLUCOSE 122.0 mg/dL Normal 01/31/20 25 70 - 200 [facility] ALKALINE PHOSPHATASE 89.0 U/L Normal 0 25 39 - 113 [facility] BILIRUBIN, DIRECT 0.2 mg/dL Normal 01/31/20 25 0 - 0.5 [facility] ALT (SGPT) 20.0 U/L Normal 01/31/20 25 8 - 39 [facility] PROTEIN TOTAL 6.1 g/dL Below low normal 01/31/20 25 6.2 - 8.1 [facility] ALBUMIN, AUTOMATED 3.6 g/dL Below low normal 01/30 25 3.8 - 5.3 [facility] AST (SGOT) 16.0 U/L Below low normal 01/31/20 25 17 - 35 [facility] BILIRUBIN, TOTAL 0.5 mg/dL Normal 01/31/20 25 0.1 - 1.2 [facility] TROPONIN I, HIGH SENSITIVITY 57.0 ng/L Above high normal 01/31/20 25 - [facility] FERRITIN 31.0 ng/mL Normal 01/31/20 25 16 - 336 [facility] IRON SATURATION (%) IN SER/PLAS 6.0 % Normal 01/31/20 25 [facility] IRON BINDING CAPACITY 369.0 ug/dL Normal 25 260 - 490 [facility] FERRITIN 31.0 ng/mL Normal 01/31/20 25 16 - 336 [facility] IRON 21.0 ug/dL Below low normal 01/31/20 25 48 - 182 [facility] TROPONIN I, HIGH SENSITIVITY 58.0 ng/L Above high normal 01/31/20 25 - [facility] MAGNESIUM 2.0 mg/dL Normal 01/31/20 25 1.8 - 3 [facility] BICARBONATE 20.0 mmol/L Below low normal 01/31/20 25 23 - 32 [facility] CHLORIDE 107.0 mmol/L Normal 01/31/20 25 100 - 111 [facility] GLUCOSE 236.0 mg/dL Above high normal 01/31/20 25 70 - 200 [facility] CALCIUM, TOTAL 9.3 mg/dL Normal 01/31/20 25 8.4 - 10.2 [facility] UREA NITROGEN 52.0 mg/dL Above high normal 01/31/20 25 8 - 24 [facility] GLOMERULAR FILTRATION RATE ML/MIN/1.73 SQ M.PREDICTED 29.0 mL/min/1.73m*2 Below low normal 01/31/20 25 60 - [facility] POTASSIUM 4.1 mmol/L Normal 01/31/20 25 3.6 - 5.1 [facility] SODIUM 138.0 mmol/L Normal 01/31/20 25 137 - 144 [facility] ANION GAP 11.0 mmol/L Normal 01/31/20 25 3 - 11 [facility] CREATININE 2.4 mg/dL Above high normal 01/31/20 25 0.6 - 1.[address] [facility] [address] 0.05 10*3/uL Normal 0 25 0 - 0.2 [facility] LYMPHOCYTE % 12.2 % Below low normal 01/31/20 25 20 - [address] [facility] [address] 0.72 10*3/uL Normal 25 0.2 - 0.8 [facility] MCHC 33.2 g/dL Normal 01/31/20 25 32 - 36 [facility] HEMOGLOBIN 10.9 g/dL Below low normal 01/31/20 25 13 - 18 [facility] MONOCYTE % 9.1 % Normal 01/31/20 25 4 - 12 [facility] HEMATOCRIT 32.8 % Below low normal 01/31/20 25 40 - 52 [facility] RBC DISTRIBUTION WIDTH 12.1 % Normal 01/31/20 25 11.6 - 14.[address] [facility] [address] 0.96 10*3/uL Normal 01/31/20 25 0.7 - 4.5 [facility] NEUTROPHIL % 71.1 % Above high normal 01/31/20 25 40 - [address] [facility] [address] 0.53 10*3/uL Above high normal 01/31/20 0 - 0.3 [facility] RED CELL COUNT 3.44 10*6/ L Below low normal 01/31/20 4.4 - 5.9 [facility] PLATELET COUNT 168.0 10*3/uL Normal 01/31/20 150 - [address] [facility] [address] 5.6 10*3/uL Normal 01/31/20 1.4 - 6.3 [facility] MPV 12.8 fL Above high normal 01/31/20 9.4 - 12.4 [facility] AUTO NRBC % 0.0 % Normal 01/31/20 0 - 0 [facility] WHITE CELL COUNT 7.9 10*3/uL Normal 01/31/20 3.8 - 10.6 [facility] ABSOLUTE IMMATURE GRANULOCYTES 0.02 10*3/uL Normal 01/31/20 [facility] MCV 95.3 fL Normal 01/31/20 80 - 100 [facility] EOSINOPHIL % 6.7 % Above high normal 01/31/20 0 - 6 [facility] IMMATURE GRANULOCYTE % 0.3 % Normal 01/31/20 0 - 0.6 [facility] BASOPHILS % 0.6 % Normal 01/31/20 0 - 2 [facility] MCH 31.7 pg Normal 01/31/20 26 - 34 [facility] NATRIURETIC PEPTIDE B (BNP) 1629.0 pg/mL Above high normal 01/31/20 0 - 100 [facility] ABSOLUTE IMMATURE GRANULOCYTES 0.03 10*3/uL Normal 01/29/[address] [facility] [address] 0.84 10*3/uL Above high normal 0 01/29/20 0.2 - 0.8 [facility] MPV 12.8 fL Above high normal 01/29/20 9.4 - 12.[address] [facility] [address] 0.1 10*3/uL Normal 0 25 0 - 0.2 [facility] HEMOGLOBIN 10.9 g/dL Below low normal 01/29/20 13 - [address] [facility] [address] 0.86 10*3/uL Above high normal 01/29/20 0 - 0.3 [facility] HEMATOCRIT 34.6 % Below low normal 01/29/20 40 - 52 [facility] RBC DISTRIBUTION WIDTH 12.2 % Normal 01/29/20 11.6 - 14.8 [facility] MCV 99.7 fL Normal 01/29/20 80 - 100 [facility] RED CELL COUNT 3.47 10*6/ L Below low normal 01/29/20 4.4 - 5.9 [facility] MCH 31.4 pg Normal 01/29/20 26 - 34 [facility] IMMATURE GRANULOCYTE % 0.3 % Normal 01/29/20 0 - 0.6 [facility] LYMPHOCYTE % 13.9 % Below low normal 01/29/20 20 - [address] [facility] [address] 5.82 10*3/uL Normal 01/29/20 1.4 - 6.[address] [facility] [address] 1.23 10*3/uL Normal 01/29/20 0.7 - 4.5 [facility] BASOPHILS % 1.1 % Normal 01/29/20 0 - 2 [facility] EOSINOPHIL % 9.7 % Above high normal 01/29/20 0 - 6 [facility] WHITE CELL COUNT 8.9 10*3/uL Normal 01/29/20 3.8 - 10.6 [facility] MCHC 31.5 g/dL Below low normal 01/29/20 32 - 36 [facility] AUTO NRBC % 0.0 % Normal 01/29/20 0 - 0 [facility] PLATELET COUNT 186.0 10*3/uL Normal 01/29/20 150 - 440 [facility] MONOCYTE % 9.5 % Normal 01/29/20 4 - 12 [facility] NEUTROPHIL % 65.5 % Normal 01/29/20 40 - 70 [facility] NATRIURETIC PEPTIDE B (BNP) 1238.0 pg/mL Above high normal 01/29/20 0 - 100 [facility] GYCOHEMOGLOBIN A1C 6.5 % Above high normal 01/05 4.4 - 6.4 [facility] CALCIUM, TOTAL 9.6 mg/dL Normal 01/29/20 8.4 - 10.2 [facility] ANION GAP 10.0 mmol/L Normal 01/29/20 3 - 11 [facility] BICARBONATE 22.0 mmol/L Below low normal 01/29/20 23 - 32 [facility] GLOMERULAR FILTRATION RATE ML/MIN/1.73 SQ M.PREDICTED 30.0 mL/min/1.73m*2 Below low normal 01/29/20 25 60 - [facility] SODIUM 142.0 mmol/L Normal 01/29/20 137 - 144 [facility] POTASSIUM 4.1 mmol/L Normal 01/29/20 3.6 - 5.1 [facility] ALBUMIN, AUTOMATED 4.1 g/dL Normal 01/29/20 3.8 - 5.3 [facility] UREA NITROGEN 52.0 mg/dL Above high normal 01/29/20 8 - 24 [facility] PHOSPHORUS 3.7 mg/dL Normal 01/29/20 2.4 - 4.8 [facility] GLUCOSE 66.0 mg/dL Below low normal 01/29/20 70 - 200 [facility] CREATININE 2.3 mg/dL Above high normal 01/29/20 0.6 - 1.2 [facility] CHLORIDE 110.0 mmol/L Normal 01/29/20 100 - 111 [facility] ALBUMIN, AUTOMATED 4.1 g/dL Normal 01/29/20 3.8 - 5.3 [facility] CREATININE 2.3 mg/dL Above high normal 01/29/20 0.6 - 1.2 [facility] AST (SGOT) 19.0 U/L Normal 01/29/20 17 - 35 [facility] SODIUM 142.0 mmol/L Normal 01/29/20 137 - 144 [facility] GLOMERULAR FILTRATION RATE ML/MIN/1.73 SQ M.PREDICTED 30.0 mL/min/1.73m*2 Below low normal 01/29/20 60 - [facility] UREA NITROGEN 52.0 mg/dL Above high normal 01/29/20 8 - 24 [facility] ALT (SGPT) 23.0 U/L Normal 01/29/20 8 - 39 [facility] BILIRUBIN, TOTAL 0.5 mg/dL Normal 01/29/20 0.1 - 1.2 [facility] BICARBONATE 22.0 mmol/L Below low normal 01/29/20 23 - 32 [facility] ANION GAP 10.0 mmol/L Normal 01/29/20 3 - 11 [facility] POTASSIUM 4.1 mmol/L Normal 01/29/20 3.6 - 5.1 [facility] PROTEIN TOTAL 6.9 g/dL Normal 01/29/20 25 6.2 - 8.1 [facility] CALCIUM, TOTAL 9.6 mg/dL Normal 01/29/20 25 8.4 - 10.2 [facility] GLUCOSE 66.0 mg/dL Below low normal 01/29/20 25 70 - 200 [facility] CHLORIDE 110.0 mmol/L Normal 01/29/20 25 100 - 111 [facility] ALKALINE PHOSPHATASE 91.0 U/L Normal 0 25 39 - 113 [facility] ANION GAP 10.0 mmol/L Normal 01/10/20 25 3 - 11 [facility] POTASSIUM 5.1 mmol/L Normal 01/10/20 25 3.6 - 5.1 [facility] GLUCOSE 127.0 mg/dL Normal 01/10/20 25 70 - 200 [facility] BICARBONATE 20.0 mmol/L Below low normal 01/10/20 25 23 - 32 [facility] GLOMERULAR FILTRATION RATE ML/MIN/1.73 SQ M.PREDICTED 30.0 mL/min/1.73m*2 Below low normal 01/10/20 25 60 - [facility] CHLORIDE 111.0 mmol/L Normal 01/10/20 25 100 - 111 [facility] UREA NITROGEN 38.0 mg/dL Above high normal 01/10/20 25 8 - 24 [facility] CALCIUM, TOTAL 9.7 mg/dL Normal 01/10/20 25 8.4 - 10.2 [facility] PHOSPHORUS 4.0 mg/dL Normal 01/10/20 25 2.4 - 4.8 [facility] ALBUMIN, AUTOMATED 4.1 g/dL Normal 01/10/20 25 3.8 - 5.3 [facility] CREATININE 2.3 mg/dL Above high normal 01/10/20 25 0.6 - 1.2 [facility] SODIUM 141.0 mmol/L Normal 01/10/20 25 137 - 144 [facility] ANION GAP 13.0 mmol/L Above high normal 12/06/19 25 3 - 11 [facility] GLOMERULAR FILTRATION RATE ML/MIN/1.73 SQ M.PREDICTED 34.0 mL/min/1.73m*2 Below low normal 12/06/19 25 60 - [facility] UREA NITROGEN 37.0 mg/dL Above high normal 12/06/19 25 8 - 24 [facility] SODIUM 142.0 mmol/L Normal 12/06/19 25 137 - 144 [facility] BICARBONATE 25.0 mmol/L Normal 12/06/19 25 23 - 32 [facility] CALCIUM, TOTAL 9.5 mg/dL Normal 12/06/19 25 8.4 - 10.2 [facility] CREATININE 2.1 mg/dL Above high normal 12/06/19 25 0.6 - 1.2 [facility] GLUCOSE 88.0 mg/dL Normal 12/06/19 25 70 - 200 [facility] POTASSIUM 3.8 mmol/L Normal 12/06/19 25 3.6 - 5.1 [facility] PHOSPHORUS 4.0 mg/dL Normal 12/06/19 25 2.4 - 4.8 [facility] ALBUMIN, AUTOMATED 3.9 g/dL Normal 12/06/19 3.8 - 5.3 [facility] CHLORIDE 104.0 mmol/L Normal 12/06/19 25 100 - 111 [facility] GLUCOSE 228.0 mg/dL Above high normal 11/28/19 25 70 - 200 [facility] POTASSIUM 3.9 mmol/L Normal 11/28/19 25 3.6 - 5.1 [facility] GLOMERULAR FILTRATION RATE ML/MIN/1.73 SQ M.PREDICTED 29.0 mL/min/1.73m*2 Below low normal 11/28/19 25 60 - [facility] CHLORIDE 104.0 mmol/L Normal 11/28/19 25 100 - 111 [facility] CREATININE 2.4 mg/dL Above high normal 11/28/19 25 0.6 - 1.2 [facility] ANION GAP 17.0 mmol/L Above high normal 11/28/19 25 3 - 11 [facility] CALCIUM, TOTAL 9.4 mg/dL Normal 11/28/19 25 8.4 - 10.2 [facility] ALBUMIN, AUTOMATED 4.2 g/dL Normal 11/28/19 25 3.8 - 5.3 [facility] PHOSPHORUS 3.8 mg/dL Normal 11/28/19 25 2.4 - 4.8 [facility] SODIUM 141.0 mmol/L Normal 11/28/19 25 137 - 144 [facility] BICARBONATE 20.0 mmol/L Below low normal 11/28/19 25 23 - 32 [facility] UREA NITROGEN 54.0 mg/dL Above high normal 11/28/19 25 8 - 24 [facility] NITRITE, POC Negative Normal 11/14/19 - [facility] LEUKOCYTE, POC Negative Normal 11/14/19 - [facility] PROTEIN, POC 30.0 mg/dL Abnormal 11/14/19 - [facility] TEST STRIP LOT # Normal 11/14/19 [facility] INSTRUMENT ID [id number] Normal 11/14/19 [facility] TEST STRIP EXP DATE Normal 11/14/19 [facility] PH, POC 5.5 Normal 11/14/19 5 - 8 [facility] BLOOD, URINE, POC Trace-intact Abnormal 11/14/19 - [facility] COLOR, POC Yellow Normal 11/14/19 - [facility] CLARITY, POC Clear Normal 11/14/19 - [facility] UROBILINOGEN, POC 0.2 EU/dL Normal 11/14/19 - [facility] MACHINE PULLER ID [id number] Normal 11/14/19 [facility] GLUCOSE URINE, POC 100.0 mg/dL Abnormal 11/14/19 - [facility] KETONES URINE Negative Normal 11/14/19 - [facility] BILI, POC Negative Normal 11/14/19 - [facility] SPECIFIC GRAVITY, POC 1.015 Normal 1.003 - 1.035 [facility] CALCIUM, TOTAL 8.1 mg/dL Below low normal 11/14/19 8.4 - 10.2 [facility] ALBUMIN, AUTOMATED 3.6 g/dL Below low normal 11/14 3.8 - 5.3 [facility] GLUCOSE 210.0 mg/dL Above high normal 11/14/19 70 - 200 [facility] ANION GAP 10.0 mmol/L Normal 11/14/19 3 - 11 [facility] PHOSPHORUS 4.1 mg/dL Normal 11/14/19 2.4 - 4.8 [facility] UREA NITROGEN 64.0 mg/dL Above high normal 11/14/19 8 - 24 [facility] CHLORIDE 104.0 mmol/L Normal 11/14/19 100 - 111 [facility] CREATININE 2.4 mg/dL Above high normal 11/14/19 0.6 - 1.2 [facility] GLOMERULAR FILTRATION RATE ML/MIN/1.73 SQ M.PREDICTED 29.0 mL/min/1.73m*2 Below low normal 11/14/19 60 - [facility] SODIUM 139.0 mmol/L Normal 11/14/19 137 - 144 [facility] BICARBONATE 25.0 mmol/L Normal 11/14/19 23 - 32 [facility] POTASSIUM 3.6 mmol/L Normal 11/14/19 3.6 - 5.1 [facility] INFLUENZA B PCR (CEPHEID) Not Detected Normal 11/03/20 [facility] SARS-COV-2 PCR ([employer]) Negative Normal 11/03/20 [facility] RSV PCR (CEPHEID) Not Detected Normal 11/03/20 [facility] INFLUENZA A PCR ([employer]) Not Detected Normal 11/03/20 [facility] POCT GLUCOSE 217.0 mg/dL Above high normal 11/03/20 70 - 200 [facility] POCT GLUCOSE 219.0 mg/dL Above high normal 11/03/20 70 - 200 [facility] CALCIUM, TOTAL 7.7 mg/dL Below low normal 11/03/20 8.4 - 10.2 [facility] UREA NITROGEN 41.0 mg/dL Above high normal 11/03/20 8 - 24 [facility] CHLORIDE 99.0 mmol/L Below low normal 11/03/20 100 - 111 [facility] POTASSIUM 3.3 mmol/L Below low normal 11/03/20 3.6 - 5.1 [facility] PHOSPHORUS 3.0 mg/dL Normal 11/03/20 2.4 - 4.8 [facility] BICARBONATE 27.0 mmol/L Normal 11/03/20 23 - 32 [facility] ANION GAP 9.0 mmol/L Normal 11/03/20 3 - 11 [facility] GLOMERULAR FILTRATION RATE ML/MIN/1.73 SQ M.PREDICTED 12.0 mL/min/1.73m*2 Below low normal 11/03/20 60 - [facility] SODIUM 135.0 mmol/L Below low normal 11/03/20 137 - 144 [facility] GLUCOSE 157.0 mg/dL Normal 11/03/20 70 - 200 [facility] ALBUMIN, AUTOMATED 2.9 g/dL Below low normal 11/03 3.8 - 5.3 [facility] CREATININE 4.9 mg/dL Above high normal 11/03/20 0.6 - 1.2 [facility] RBC DISTRIBUTION WIDTH 12.2 % Normal 11/03/20 11.6 - 14.8 [facility] PLATELET COUNT 181.0 10*3/uL Normal 11/03/20 150 - 440 [facility] WHITE CELL COUNT 12.3 10*3/uL Above high normal 3.8 - 10.6 [facility] HEMATOCRIT 24.6 % Below low normal 11/03/20 40 - 52 [facility] MCHC 35.0 g/dL Normal 11/03/20 32 - 36 [facility] AUTO NRBC % 0.0 % Normal 11/03/20 0 - 0 [facility] MCV 91.4 fL Normal 11/03/20 80 - 100 [facility] MCH 32.0 pg Normal 11/03/20 26 - 34 [facility] HEMOGLOBIN 8.6 g/dL Below low normal 11/03/20 13 - 18 [facility] RED CELL COUNT 2.69 10*6/ L Below low normal 11/03/20 4.4 - 5.9 [facility] POCT GLUCOSE 172.0 mg/dL Normal 11/03/20 70 - 200 [facility] POCT GLUCOSE 232.0 mg/dL Above high normal 11/03/20 70 - 200 [facility] POCT GLUCOSE 243.0 mg/dL Above high normal 11/02/20 70 - 200 [facility] POCT GLUCOSE 235.0 mg/dL Above high normal 11/02/20 24 70 - 200 [facility] POCT GLUCOSE 240.0 mg/dL Above high normal 11/02/20 24 70 - 200 [facility] MAGNESIUM 1.8 mg/dL Normal 11/02/20 1.8 - 3 [facility] ANION GAP 9.0 mmol/L Normal 11/02/20 3 - 11 [facility] PHOSPHORUS 3.3 mg/dL Normal 11/02/20 2.4 - 4.8 [facility] CHLORIDE 102.0 mmol/L Normal 11/02/20 100 - 111 [facility] ALBUMIN, AUTOMATED 2.8 g/dL Below low normal 11/02 3.8 - 5.3 [facility] GLUCOSE 223.0 mg/dL Above high normal 11/02/20 70 - 200 [facility] CREATININE 5.0 mg/dL Above high normal 11/02/20 0.6 - 1.2 [facility] SODIUM 138.0 mmol/L Normal 11/02/20 137 - 144 [facility] CALCIUM, TOTAL 7.9 mg/dL Below low normal 11/02/20 8.4 - 10.2 [facility] BICARBONATE 27.0 mmol/L Normal 11/02/20 23 - 32 [facility] POTASSIUM 3.6 mmol/L Normal 11/02/20 3.6 - 5.1 [facility] UREA NITROGEN 37.0 mg/dL Above high normal 11/02/20 8 - 24 [facility] GLOMERULAR FILTRATION RATE ML/MIN/1.73 SQ M.PREDICTED 12.0 mL/min/1.73m*2 Below low normal 11/02/20 60 - [facility] RBC DISTRIBUTION WIDTH 12.1 % Normal 11/02/20 11.6 - 14.8 [facility] AUTO NRBC % 0.0 % Normal 11/02/20 0 - 0 [facility] MCH 31.5 pg Normal 11/02/20 26 - 34 [facility] WHITE CELL COUNT 8.6 10*3/uL Normal 11/02/20 3.8 - 10.6 [facility] HEMATOCRIT 23.7 % Below low normal 11/02/20 40 - 52 [facility] MCHC 34.6 g/dL Normal 11/02/20 32 - 36 [facility] HEMOGLOBIN 8.2 g/dL Below low normal 11/02/20 13 - 18 [facility] PLATELET COUNT 134.0 10*3/uL Below low normal 11/02/20 150 - 440 [facility] MCV 91.2 fL Normal 11/02/20 80 - 100 [facility] RED CELL COUNT 2.6 10*6/ L Below low normal 11/02/20 4.4 - 5.9 [facility] POCT GLUCOSE 256.0 mg/dL Above high normal 11/02/20 70 - 200 [facility] POCT GLUCOSE 258.0 mg/dL Above high normal 11/01/20 70 - 200 [facility] POCT GLUCOSE 183.0 mg/dL Normal 11/01/20 70 - 200 [facility] POCT GLUCOSE 156.0 mg/dL Normal 11/01/20 70 - 200 [facility] GYCOHEMOGLOBIN A1C 6.6 % Above high normal 10/07 4.4 - 6.4 [facility] MAGNESIUM 1.7 mg/dL Below low normal 11/01/20 1.8 - 3 [facility] CHLORIDE 103.0 mmol/L Normal 11/01/20 100 - 111 [facility] ANION GAP 9.0 mmol/L Normal 11/01/20 3 - 11 [facility] POTASSIUM 3.1 mmol/L Below low normal 11/01/20 3.6 - 5.1 [facility] GLUCOSE 138.0 mg/dL Normal 11/01/20 70 - 200 [facility] ALBUMIN, AUTOMATED 2.6 g/dL Below low normal 11/01 3.8 - 5.3 [facility] GLOMERULAR FILTRATION RATE ML/MIN/1.73 SQ M.PREDICTED 12.0 mL/min/1.73m*2 Below low normal 11/01/20 60 - [facility] CREATININE 4.9 mg/dL Above high normal 11/01/20 0.6 - 1.2 [facility] BICARBONATE 26.0 mmol/L Normal 11/01/20 23 - 32 [facility] UREA NITROGEN 34.0 mg/dL Above high normal 11/01/20 8 - 24 [facility] CALCIUM, TOTAL 7.6 mg/dL Below low normal 11/01/20 8.4 - 10.2 [facility] PHOSPHORUS 3.3 mg/dL Normal 11/01/20 2.4 - 4.8 [facility] SODIUM 138.0 mmol/L Normal 11/01/20 137 - 144 [facility] RED CELL COUNT 2.58 10*6/ L Below low normal 11/01/20 4.4 - 5.9 [facility] RBC DISTRIBUTION WIDTH 12.3 % Normal 11/01/20 11.6 - 14.8 [facility] PLATELET COUNT 105.0 10*3/uL Below low normal 11/01/20 150 - 440 [facility] HEMOGLOBIN 8.1 g/dL Below low normal 11/01/20 13 - 18 [facility] MCH 31.4 pg Normal 11/01/20 26 - 34 [facility] AUTO NRBC % 0.0 % Normal 11/01/20 0 - 0 [facility] HEMATOCRIT 23.2 % Below low normal 12/27/20 24 40 - 52 [facility] MCV 89.9 fL Normal 11/01/20 80 - 100 [facility] MCHC 34.9 g/dL Normal 11/01/20 32 - 36 [facility] WHITE CELL COUNT 7.4 10*3/uL Normal 11/01/20 3.8 - 10.6 [facility] POCT GLUCOSE 211.0 mg/dL Above high normal 11/01/20 70 - 200 [facility] POCT GLUCOSE 246.0 mg/dL Above high normal 11/01/20 70 - 200 [facility] PLATELET COUNT 93.0 10*3/uL Below low normal 11/01/20 150 - 440 [facility] MCHC 35.3 g/dL Normal 11/01/20 32 - 36 [facility] WHITE CELL COUNT 6.3 10*3/uL Normal 11/01/20 3.8 - 10.6 [facility] MCV 89.8 fL Normal 11/01/20 80 - 100 [facility] HEMOGLOBIN 9.0 g/dL Below low normal 11/01/20 13 - 18 [facility] HEMATOCRIT 25.5 % Below low normal 11/01/20 40 - 52 [facility] MCH 31.7 pg Normal 11/01/20 26 - 34 [facility] AUTO NRBC % 0.0 % Normal 11/01/20 0 - 0 [facility] RBC DISTRIBUTION WIDTH 12.4 % Normal 11/01/20 11.6 - 14.8 [facility] RED CELL COUNT 2.84 10*6/ L Below low normal 11/01/20 4.4 - 5.9 [facility] POCT GLUCOSE 197.0 mg/dL Normal 10/31/20 70 - 200 [facility] UCONNPATH LAB AP GROSS DESCRIPTION Received fresh are multiple core-needle biopsies with the patient's name. The specimen is divided for light microscopy, direct immunofluorescence and electron microscopy. Normal 10/31/20 [facility] POCT GLUCOSE 154.0 mg/dL Normal 10/31/20 70 - 200 [facility] POCT GLUCOSE 159.0 mg/dL Normal 10/31/20 70 - 200 [facility] MAGNESIUM 1.9 mg/dL Normal 10/31/20 1.8 - 3 [facility] CALCIUM, TOTAL 7.6 mg/dL Below low normal 12/26/20 24 8.4 - 10.2 [facility] ALBUMIN, AUTOMATED 2.6 g/dL Below low normal 10/31 3.8 - 5.3 [facility] POTASSIUM 3.4 mmol/L Below low normal 10/31/20 3.6 - 5.1 [facility] BICARBONATE 25.0 mmol/L Normal 10/31/20 23 - 32 [facility] GLUCOSE 153.0 mg/dL Normal 10/31/20 70 - 200 [facility] CREATININE 4.7 mg/dL Above high normal 10/31/20 0.6 - 1.2 [facility] CHLORIDE 105.0 mmol/L Normal 10/31/20 100 - 111 [facility] GLOMERULAR FILTRATION RATE ML/MIN/1.73 SQ M.PREDICTED 13.0 mL/min/1.73m*2 Below low normal 10/31/20 60 - [facility] PHOSPHORUS 2.7 mg/dL Normal 10/31/20 2.4 - 4.8 [facility] ANION GAP 10.0 mmol/L Normal 10/31/20 3 - 11 [facility] UREA NITROGEN 34.0 mg/dL Above high normal 10/31/20 8 - 24 [facility] SODIUM 140.0 mmol/L Normal 10/31/20 137 - 144 [facility] ACTIVATED PARTIAL THROMBOPLASTIN TIME IN PPP BY COAGULATION ASSAY 28.6 seconds Normal 10/31/20 25.1 - 36.5 [facility] INR 1.0 ratio Normal 10/31/20 0.9 - 1.1 [facility] PROTHROMBIN TIME (PT) 11.9 seconds Normal 10.4 - 13 [facility] HEMOGLOBIN 8.9 g/dL Below low normal 10/31/20 13 - 18 [facility] MCH 32.0 pg Normal 10/31/20 26 - 34 [facility] MCHC 35.3 g/dL Normal 10/31/20 32 - 36 [facility] MCV 90.6 fL Normal 10/31/20 80 - 100 [facility] PLATELET COUNT 106.0 10*3/uL Below low normal 10/31/20 150 - 440 [facility] RED CELL COUNT 2.78 10*6/ L Below low normal 10/31/20 4.4 - 5.9 [facility] AUTO NRBC % 0.0 % Normal 10/31/20 0 - 0 [facility] RBC DISTRIBUTION WIDTH 12.0 % Normal 10/31/20 11.6 - 14.8 [facility] HEMATOCRIT 25.2 % Below low normal 10/31/20 40 - 52 [facility] WHITE CELL COUNT 8.6 10*3/uL Normal 10/31/20 3.8 - 10.6 [facility] POCT GLUCOSE 161.0 mg/dL Normal 10/31/20 70 - 200 [facility] ANTIBODY SCREEN NEG Normal 10/30/20 [facility] ABO GROUP (TYPE) IN BLOOD B Normal 10/30/20 [facility] RH TYPE IN BLOOD POS Normal 10/30/20 [facility] POCT GLUCOSE 232.0 mg/dL Above high normal 10/30/20 70 - 200 [facility] PHOSPHORUS 2.1 mg/dL Below low normal 10/30/20 2.4 - 4.8 [facility] ALBUMIN, AUTOMATED 2.7 g/dL Below low normal 10/30 3.8 - 5.3 [facility] SODIUM 139.0 mmol/L Normal 10/30/20 137 - 144 [facility] GLUCOSE 207.0 mg/dL Above high normal 10/30/20 70 - 200 [facility] POTASSIUM 3.6 mmol/L Normal 10/30/20 3.6 - 5.1 [facility] GLOMERULAR FILTRATION RATE ML/MIN/1.73 SQ M.PREDICTED 14.0 mL/min/1.73m*2 Below low normal 10/30/20 60 - [facility] CHLORIDE 106.0 mmol/L Normal 10/30/20 100 - 111 [facility] ANION GAP 8.0 mmol/L Normal 10/30/20 3 - 11 [facility] CREATININE 4.5 mg/dL Above high normal 10/30/20 0.6 - 1.2 [facility] UREA NITROGEN 33.0 mg/dL Above high normal 10/30/20 8 - 24 [facility] CALCIUM, TOTAL 7.5 mg/dL Below low normal 10/30/20 8.4 - 10.2 [facility] BICARBONATE 25.0 mmol/L Normal 10/30/20 23 - 32 [facility] AUTO NRBC % 0.0 % Normal 10/30/20 0 - 0 [facility] MCV 90.6 fL Normal 10/30/20 80 - 100 [facility] RBC DISTRIBUTION WIDTH 11.2 % Below low normal 10/30/20 11.6 - 14.8 [facility] MCHC 35.6 g/dL Normal 10/30/20 32 - 36 [facility] HEMATOCRIT 22.2 % Below low normal 10/30/20 40 - 52 [facility] RED CELL COUNT 2.45 10*6/ L Below low normal 10/30/20 4.4 - 5.9 [facility] MCH 32.2 pg Normal 10/30/20 26 - 34 [facility] WHITE CELL COUNT 7.1 10*3/uL Normal 10/30/20 3.8 - 10.6 [facility] HEMOGLOBIN 7.9 g/dL Below low normal 10/30/20 13 - 18 [facility] PLATELET COUNT 84.0 10*3/uL Below low normal 10/30/20 150 - 440 [facility] POCT GLUCOSE 268.0 mg/dL Above high normal 10/30/20 70 - 200 [facility] POCT GLUCOSE 189.0 mg/dL Normal 10/30/20 70 - 200 [facility] AUTO NRBC % 0.0 % Normal 10/30/20 0 - 0 [facility] MCV 87.6 fL Normal 10/30/20 80 - 100 [facility] RED CELL COUNT 2.33 10*6/ L Below low normal 10/30/20 4.4 - 5.9 [facility] RBC DISTRIBUTION WIDTH 11.3 % Below low normal 10/30/20 11.6 - 14.8 [facility] WHITE CELL COUNT 8.2 10*3/uL Normal 10/30/20 3.8 - 10.6 [facility] MCH 31.8 pg Normal 10/30/20 26 - 34 [facility] PLATELET COUNT 83.0 10*3/uL Below low normal 10/30/20 150 - 440 [facility] MCHC 36.3 g/dL Above high normal 10/30/20 32 - 36 [facility] HEMOGLOBIN 7.4 g/dL Below low normal 10/30/20 13 - 18 [facility] HEMATOCRIT 20.4 % Critically low 10/30/20 40 - 52 [facility] MAGNESIUM 1.7 mg/dL Below low normal 10/30/20 1.8 - 3 [facility] ANION GAP 10.0 mmol/L Normal 10/30/20 24 3 - 11 [facility] PHOSPHORUS 2.9 mg/dL Normal 10/30/20 2.4 - 4.8 [facility] CHLORIDE 102.0 mmol/L Normal 10/30/20 100 - 111 [facility] CALCIUM, TOTAL 7.2 mg/dL Below low normal 10/30/20 8.4 - 10.2 [facility] GLUCOSE 178.0 mg/dL Normal 10/30/20 70 - 200 [facility] GLOMERULAR FILTRATION RATE ML/MIN/1.73 SQ M.PREDICTED 8.0 mL/min/1.73m*2 Below low normal 10/30/20 60 - [facility] CREATININE 6.8 mg/dL Above high normal 10/30/20 0.6 - 1.2 [facility] ALBUMIN, AUTOMATED 2.4 g/dL Below low normal 10/30 3.8 - 5.3 [facility] BICARBONATE 25.0 mmol/L Normal 10/30/20 23 - 32 [facility] POTASSIUM 3.3 mmol/L Below low normal 10/30/20 3.6 - 5.1 [facility] UREA NITROGEN 60.0 mg/dL Above high normal 10/30/20 8 - 24 [facility] SODIUM 137.0 mmol/L Normal 10/30/20 137 - 144 [facility] POCT GLUCOSE 199.0 mg/dL Normal 10/30/20 70 - 200 [facility] POCT GLUCOSE 278.0 mg/dL Above high normal 10/29/20 70 - 200 [facility] GLOBULIN, 24 HR URINE 76.0 % Normal 24 - [facility] URINE PROTEIN QUANT 420.0 mg/24hr Above high normal 40 - 140 [facility] TIME (HOURS) 24.0 hrs Normal 10/29/20 [facility] UEP INTERPRETATION Normal 10/29/20 [facility] URINE PROTEIN/CREAT RATIO 311.0 mg/g creat Normal 10/29/20 [facility] CREATININE, URINE 24HR 1.35 g/24hr Normal 10/29/20 0.78 - 2.31 [facility] BENCE VARGAS PROTEIN, 24 HR Both albumin and globulins are present. No monoclonal or Bence-Vargas protein is detected in this urine immunofixation electrophoresis. Elkin Calderon MD Normal 10/29/20 [facility] TOTAL VOLUME 3000.0 mL Normal 10/29/20 [facility] ALBUMIN, 24 HR URINE 24.0 % Normal 0 24 - [facility] MICROALBUMIN (MG/24HR) IN 24 HOUR URINE 87.0 mg/d Above high normal 10/29/20 24 0 - 16.5 [facility] MICROALBUMIN 24HR UG/MIN 60.0 ug/min Above high normal 10/29/20 24 0 - 12 [facility] TOTAL VOLUME 3000.0 mL Normal 10/29/20 [facility] TIME (HOURS) 24.0 hrs Normal 10/29/20 [facility] TOTAL VOLUME 3000.0 mL Normal 10/29/20 [facility] CREATININE, SERUM 11.0 mg/dL Above high normal 10/29 24 0.8 - 1.2 [facility] CREATININE RENAL CLEARANCE IN 24 HOUR 9.0 mL/min Below low normal 10/29/20 90 - 139 [facility] TIME (HOURS) 24.0 hrs Normal 10/29/20 [facility] CREATININE, URINE - PER 24H FOR CRCL 1350.0 mg/24 H Normal 10/29/20 1040 - 2350 [facility] POCT GLUCOSE 172.0 mg/dL Normal 10/29/20 70 - 200 [facility] MYELOPEROX ANTIBODIES, IGG 0.0 AU/mL Normal 10/29/20 0 - 19 [facility] SERINE PROTEASE3, IGG 0.0 AU/mL Normal 0 - 19 [facility] KAPPA QNT FREE LIGHT CHAINS 107.38 mg/L Above high normal 10/29/20 3.3 - 19.4 [facility] LAMBDA QNT FREE LIGHT CHAINS 65.28 mg/L Above high normal 10/29/20 5.71 - 26.3 [facility] KAPPA/LAMBDA FREE LIGHT CHAIN RATIO 1.64 Normal 10/29/20 0.26 - 1.65 [facility] ALBUMIN INDEX 2.8 g/dL Below low normal 10/29/20 24 3.8 - 5.3 [facility] ALPHA 2 % 13.3 % Above high normal 10/29/20 8.6 - 13.1 [facility] ALPHA 1 % 5.5 % Above high normal 10/29/20 1.3 - 3.5 [facility] BETA 0.5 g/dL Below low normal 10/29/20 0.6 - 1.1 [facility] ALBUMIN % 57.5 % Normal 10/29/20 57.1 - 71.3 [facility] GAMMA % 12.8 % Normal 10/29/20 7.3 - 17 [facility] IMMUNOGLOBULIN M 74.0 mg/dL Normal 10/29/20 22 - 293 [facility] IMMUNOGLOBULIN A 141.0 mg/dL Normal 10/29/20 82 - 460 [facility] SIGNED OUT BY: Elkin Calderon MD Normal 10/29 [facility] IMMUNOGLOBULIN G 827.0 mg/dL Normal 10/29/20 624 - 1766 [facility] ALPHA 2 0.6 g/dL Normal 10/29/20 0.6 - 0.9 [facility] PROTEIN TOTAL 4.8 g/dL Below low normal 10/29/20 6.2 - 8.1 [facility] TPE INTERPRETATION NEW Normal 10/29/20 [facility] IMMUNOFIXATION Quantitatively IgG, IgA, and IgM are within the appropriate reference intervals. No abnormalities are noted on this immunofixation electrophoresis. Normal 10/29/20 [facility] % BETA 10.9 % Normal 10/29/20 8.9 - 14.9 [facility] GAMMA 0.6 g/dL Normal 10/29/20 0.5 - 1.2 [facility] ALPHA 1 0.3 g/dL Above high normal 10/29/20 0.1 - 0.2 [facility] JHOAN TITER 1 1:320 Abnormal 10/29/20 - [facility] JHOAN PATTERN Homogeneous Normal 10/29/20 [facility] ANTI-NUCLEAR ANTIBODY (JHOAN) Positive Abnormal 10/29/20 - [facility] MAGNESIUM 1.6 mg/dL Below low normal 10/29/20 1.8 - 3 [facility] ANION GAP 14.0 mmol/L Above high normal 10/29/20 3 - 11 [facility] UREA NITROGEN 107.0 mg/dL Above high normal 10/29/20 8 - 24 [facility] CALCIUM, TOTAL 7.2 mg/dL Below low normal 10/29/20 8.4 - 10.2 [facility] PHOSPHORUS 3.3 mg/dL Normal 10/29/20 2.4 - 4.8 [facility] ALBUMIN, AUTOMATED 2.7 g/dL Below low normal 10/29 3.8 - 5.3 [facility] CHLORIDE 100.0 mmol/L Normal 10/29/20 100 - 111 [facility] GLOMERULAR FILTRATION RATE ML/MIN/1.73 SQ M.PREDICTED 5.0 mL/min/1.73m*2 Below low normal 10/29/20 60 - [facility] CREATININE 11.0 mg/dL Above high normal 10/29/20 0.6 - 1.2 [facility] SODIUM 135.0 mmol/L Below low normal 10/29/20 137 - 144 [facility] GLUCOSE 188.0 mg/dL Normal 10/29/20 70 - 200 [facility] POTASSIUM 3.8 mmol/L Normal 10/29/20 3.6 - 5.1 [facility] BICARBONATE 21.0 mmol/L Below low normal 10/29/20 23 - 32 [facility] IMMUNOGLOBULIN A 141.0 mg/dL Normal 10/29/20 82 - 460 [facility] IMMUNOGLOBULIN M 74.0 mg/dL Normal 10/29/20 22 - 293 [facility] IMMUNOGLOBULIN G 827.0 mg/dL Normal 10/29/20 624 - 1766 [facility] ACTIVATED PARTIAL THROMBOPLASTIN TIME IN PPP BY COAGULATION ASSAY 30.1 seconds Normal 10/29/20 25.1 - 36.5 [facility] INR 1.0 ratio Normal 10/29/20 0.9 - 1.1 [facility] PROTHROMBIN TIME (PT) 11.8 seconds Normal 10.4 - 13 [facility] PLATELET COUNT 85.0 10*3/uL Below low normal 10/29/20 150 - 440 [facility] AUTO NRBC % 0.0 % Normal 10/29/20 0 - 0 [facility] WHITE CELL COUNT 10.8 10*3/uL Above high normal 3.8 - 10.6 [facility] MCHC 36.8 g/dL Above high normal 10/29/20 32 - 36 [facility] RED CELL COUNT 2.58 10*6/ L Below low normal 10/29/20 4.4 - 5.9 [facility] HEMATOCRIT 22.8 % Below low normal 10/29/20 40 - 52 [facility] MCV 88.4 fL Normal 10/29/20 80 - 100 [facility] HEMOGLOBIN 8.4 g/dL Below low normal 10/29/20 13 - 18 [facility] RBC DISTRIBUTION WIDTH 11.1 % Below low normal 10/29/20 11.6 - 14.8 [facility] MCH 32.6 pg Normal 10/29/20 26 - 34 [facility] POCT GLUCOSE 225.0 mg/dL Above high normal 10/29/20 70 - 200 [facility] POCT GLUCOSE 195.0 mg/dL Normal 10/29/20 70 - 200 [facility] POCT GLUCOSE 218.0 mg/dL Above high normal 10/28/20 70 - 200 [facility] POCT GLUCOSE 251.0 mg/dL Above high normal 10/28/20 70 - 200 [facility] POCT GLUCOSE 172.0 mg/dL Normal 10/28/20 70 - 200 [facility] HEPATITIS B VIRUS CORE AB, QUAL (IA5) Negative Normal 10/28/20 - [facility] HEPATITIS B SURFACE ANTIBODY Negative Normal 10/28/20 [facility] HEPATITIS B SURFACE AB, QUANT 0.1 mIU/mL Normal 10/28/20 24 - 12 [facility] HIV 1+2 AB + HIV1 P24 AG ([facility]ENCE) IN SERUM BY IMMUNOASSAY Negative Normal 10/28/20 - [facility] HEPATITIS B SURFACE ANTIGEN (IA5) Negative Normal 10/28/20 24 - [facility] HEPATITIS C ANTIBODY (IA5) Negative Normal 10/28/20 24 - [facility] COMPLEMENT C4 35.0 mg/dL Normal 10/28/20 16 - 66 [facility] COMPLEMENT C3 85.0 mg/dL Normal 10/28/20 67 - 154 [facility] C REACTIVE PROTEIN 34.8 mg/L Normal 10/28/20 [facility] CALCIUM, TOTAL 6.8 mg/dL Below low normal 10/28/20 8.4 - 10.2 [facility] CHLORIDE 99.0 mmol/L Below low normal 10/28/20 100 - 111 [facility] BICARBONATE 21.0 mmol/L Below low normal 10/28/20 23 - 32 [facility] POTASSIUM 3.4 mmol/L Below low normal 10/28/20 3.6 - 5.1 [facility] UREA NITROGEN 121.0 mg/dL Critically high 10/28/20 8 - 24 [facility] ANION GAP 14.0 mmol/L Above high normal 10/28/20 3 - 11 [facility] GLOMERULAR FILTRATION RATE ML/MIN/1.73 SQ M.PREDICTED 4.0 mL/min/1.73m*2 Below low normal 10/28/20 60 - [facility] SODIUM 134.0 mmol/L Below low normal 10/28/20 137 - 144 [facility] CREATININE 12.7 mg/dL Above high normal 10/28/20 0.6 - 1.2 [facility] GLUCOSE 157.0 mg/dL Normal 10/28/20 70 - 200 [facility] CREATINE KINASE 1334.0 U/L Above high normal 0 24 22 - 269 [facility] MAGNESIUM 1.3 mg/dL Below low normal 10/28/20 1.8 - 3 [facility] PHOSPHORUS 3.9 mg/dL Normal 10/28/20 2.4 - 4.8 [facility] WHITE CELL COUNT 9.4 10*3/uL Normal 10/28/20 3.8 - 10.6 [facility] RED CELL COUNT 2.48 10*6/ L Below low normal 10/28/20 4.4 - 5.9 [facility] RBC DISTRIBUTION WIDTH 10.9 % Below low normal 10/28/20 11.6 - 14.8 [facility] HEMATOCRIT 21.6 % Below low normal 10/28/20 40 - 52 [facility] MCH 32.3 pg Normal 10/28/20 26 - 34 [facility] HEMOGLOBIN 8.0 g/dL Below low normal 10/28/20 13 - 18 [facility] MCV 87.1 fL Normal 10/28/20 80 - 100 [facility] AUTO NRBC % 0.0 % Normal 10/28/20 0 - 0 [facility] MCHC 37.0 g/dL Above high normal 10/28/20 32 - 36 [facility] PLATELET COUNT 72.0 10*3/uL Below low normal 10/28/20 150 - 440 [facility] POCT GLUCOSE 235.0 mg/dL Above high normal 10/28/20 70 - 200 [facility] POCT GLUCOSE 172.0 mg/dL Normal 10/27/20 24 70 - 200 [facility] POCT GLUCOSE 232.0 mg/dL Above high normal 10/27/20 24 70 - 200 [facility] ANTI DNA DOUBLE STRANDED 31.0 IU/mL Normal 10/27/20 24 [facility] GLUCOSE 182.0 mg/dL Normal 10/27/20 70 - 200 [facility] POTASSIUM 3.3 mmol/L Below low normal 10/27/20 3.6 - 5.1 [facility] ANION GAP 17.0 mmol/L Above high normal 10/27/20 3 - 11 [facility] BICARBONATE 21.0 mmol/L Below low normal 10/27/20 24 23 - 32 [facility] GLOMERULAR FILTRATION RATE ML/MIN/1.73 SQ M.PREDICTED 4.0 mL/min/1.73m*2 Below low normal 10/27/20 60 - [facility] CALCIUM, TOTAL 6.7 mg/dL Below low normal 10/27/20 8.4 - 10.2 [facility] CHLORIDE 96.0 mmol/L Below low normal 10/27/20 100 - 111 [facility] CREATININE 13.9 mg/dL Above high normal 10/27/20 0.6 - 1.2 [facility] UREA NITROGEN 134.0 mg/dL Critically high 10/27/20 8 - 24 [facility] SODIUM 134.0 mmol/L Below low normal 10/27/20 137 - 144 [facility] MAGNESIUM 1.3 mg/dL Below low normal 10/27/20 1.8 - 3 [facility] CREATINE KINASE 1328.0 U/L Above high normal 0 24 22 - 269 [facility] PHOSPHORUS 4.2 mg/dL Normal 10/27/20 24 2.4 - 4.8 [facility] POCT GLUCOSE 196.0 mg/dL Normal 10/27/20 24 70 - 200 [facility] POCT GLUCOSE 215.0 mg/dL Above high normal 10/27/20 24 70 - 200 [facility] POCT GLUCOSE 217.0 mg/dL Above high normal 10/26/20 24 70 - 200 [facility] POCT GLUCOSE 189.0 mg/dL Normal 10/26/20 24 70 - 200 [facility] GLUCOSE 170.0 mg/dL Normal 10/26/20 24 70 - 200 [facility] POTASSIUM 3.2 mmol/L Below low normal 10/26/20 3.6 - 5.1 [facility] BICARBONATE 18.0 mmol/L Below low normal 10/26/20 23 - 32 [facility] CALCIUM, TOTAL 6.7 mg/dL Below low normal 10/26/20 8.4 - 10.2 [facility] UREA NITROGEN 146.0 mg/dL Critically high 10/26/20 8 - 24 [facility] SODIUM 135.0 mmol/L Below low normal 10/26/20 137 - 144 [facility] GLOMERULAR FILTRATION RATE ML/MIN/1.73 SQ M.PREDICTED 3.0 mL/min/1.73m*2 Below low normal 10/26/20 60 - [facility] CREATININE 15.4 mg/dL Above high normal 10/26/20 0.6 - 1.2 [facility] CHLORIDE 98.0 mmol/L Below low normal 10/26/20 100 - 111 [facility] ANION GAP 19.0 mmol/L Above high normal 10/26/20 3 - 11 [facility] PHOSPHORUS 4.8 mg/dL Normal 10/26/20 2.4 - 4.8 [facility] MAGNESIUM 1.2 mg/dL Below low normal 10/26/20 1.8 - 3 [facility] PLATELET COUNT 66.0 10*3/uL Below low normal 10/26/20 150 - 440 [facility] WHITE CELL COUNT 10.2 10*3/uL Normal 10/26/20 3.8 - 10.6 [facility] MCV 88.3 fL Normal 10/26/20 80 - 100 [facility] HEMATOCRIT 25.0 % Below low normal 10/26/20 40 - 52 [facility] MCH 32.5 pg Normal 10/26/20 26 - 34 [facility] HEMOGLOBIN 9.2 g/dL Below low normal 10/26/20 13 - 18 [facility] RED CELL COUNT 2.83 10*6/ L Below low normal 10/26/20 4.4 - 5.9 [facility] RBC DISTRIBUTION WIDTH 10.8 % Below low normal 10/26/20 11.6 - 14.8 [facility] MCHC 36.8 g/dL Above high normal 10/26/20 32 - 36 [facility] AUTO NRBC % 0.0 % Normal 12/21/20 24 0 - 0 [facility] POCT GLUCOSE 173.0 mg/dL Normal 10/26/20 24 70 - 200 [facility] POCT GLUCOSE 215.0 mg/dL Above high normal 10/26/20 70 - 200 [facility] GLUCOSE 223.0 mg/dL Above high normal 10/26/20 24 70 - 200 [facility] POTASSIUM 3.5 mmol/L Below low normal 10/26/20 3.6 - 5.1 [facility] CREATININE 16.5 mg/dL Above high normal 10/26/20 0.6 - 1.2 [facility] CHLORIDE 95.0 mmol/L Below low normal 10/26/20 100 - 111 [facility] BICARBONATE 20.0 mmol/L Below low normal 10/26/20 23 - 32 [facility] CALCIUM, TOTAL 6.9 mg/dL Below low normal 10/26/20 8.4 - 10.2 [facility] UREA NITROGEN 141.0 mg/dL Critically high 10/26/20 8 - 24 [facility] ANION GAP 21.0 mmol/L Above high normal 10/26/20 3 - 11 [facility] GLOMERULAR FILTRATION RATE ML/MIN/1.73 SQ M.PREDICTED 3.0 mL/min/1.73m*2 Below low normal 10/26/20 60 - [facility] SODIUM 136.0 mmol/L Below low normal 10/26/20 137 - 144 [facility] PHOSPHORUS 5.4 mg/dL Above high normal 10/26/20 2.4 - 4.8 [facility] POCT GLUCOSE 238.0 mg/dL Above high normal 10/25/20 70 - 200 [facility] POCT GLUCOSE 194.0 mg/dL Normal 10/25/20 24 70 - 200 [facility] POCT GLUCOSE 155.0 mg/dL Normal 10/25/20 24 70 - 200 [facility] ALKALINE PHOSPHATASE 69.0 U/L Normal 0 24 39 - 113 [facility] ALT (SGPT) 40.0 U/L Above high normal 10/25/20 24 8 - 39 [facility] ALBUMIN, AUTOMATED 2.9 g/dL Below low normal 10/25 24 3.8 - 5.3 [facility] AST (SGOT) 77.0 U/L Above high normal 10/25/20 24 17 - 35 [facility] BILIRUBIN, TOTAL 0.4 mg/dL Normal 10/25/20 24 0.1 - 1.2 [facility] PROTEIN TOTAL 5.2 g/dL Below low normal 10/25/20 6.2 - 8.1 [facility] BILIRUBIN, DIRECT 0.2 mg/dL Normal 10/25/20 24 0 - 0.5 [facility] SMEAR PREPARATION Completed Normal 10/25/20 [facility] HAPTOGLOBIN 234.0 mg/dL Above high normal 10/25/20 24 32 - 213 [facility] LACTATE DEHYDROGENASE 234.0 U/L Above high normal 1 12/26/19 24 125 - 220 [facility] CREATINE KINASE 2539.0 U/L Above high normal 0 24 22 - 269 [facility] FERRITIN 293.0 ng/mL Normal 10/25/20 16 - 336 [facility] IRON BINDING CAPACITY 194.0 ug/dL Below low normal 260 - 490 [facility] IRON SATURATION (%) IN SER/PLAS 43.0 % Normal 10/25/20 [facility] IRON 84.0 ug/dL Normal 10/25/20 24 48 - 182 [facility] PHOSPHORUS 6.3 mg/dL Above high normal 10/25/20 24 2.4 - 4.8 [facility] OSMOLALITY, MEASURED 342.0 mOsm/kg Above high normal 1 12/26/19 285 - 295 [facility] GLOMERULAR FILTRATION RATE ML/MIN/1.73 SQ M.PREDICTED 2.0 mL/min/1.73m*2 Below low normal 10/25/20 60 - [facility] CHLORIDE 97.0 mmol/L Below low normal 10/25/20 100 - 111 [facility] UREA NITROGEN 168.0 mg/dL Critically high 10/25/20 24 8 - 24 [facility] ANION GAP 23.0 mmol/L Above high normal 10/25/20 24 3 - 11 [facility] GLUCOSE 152.0 mg/dL Normal 10/25/20 70 - 200 [facility] CREATININE 18.6 mg/dL Above high normal 10/25/20 24 0.6 - 1.2 [facility] BICARBONATE 18.0 mmol/L Below low normal 10/25/20 24 23 - 32 [facility] CALCIUM, TOTAL 7.0 mg/dL Below low normal 10/25/20 24 8.4 - 10.2 [facility] POTASSIUM 3.6 mmol/L Normal 10/25/20 3.6 - 5.1 [facility] SODIUM 138.0 mmol/L Normal 10/25/20 137 - 144 [facility] LACTIC ACID 1.1 mmol/L Normal 10/25/20 0.5 - 1.9 [facility] HEMOGLOBIN 9.7 g/dL Below low normal 10/25/20 13 - 18 [facility] RBC DISTRIBUTION WIDTH 11.2 % Below low normal 10/25/20 11.6 - 14.8 [facility] MCH 31.3 pg Normal 10/25/20 26 - 34 [facility] PLATELET COUNT 71.0 10*3/uL Below low normal 10/25/20 150 - 440 [facility] MCHC 35.8 g/dL Normal 10/25/20 32 - 36 [facility] HEMATOCRIT 27.1 % Below low normal 10/25/20 40 - 52 [facility] MCV 87.4 fL Normal 10/25/20 80 - 100 [facility] WHITE CELL COUNT 9.2 10*3/uL Normal 10/25/20 3.8 - 10.6 [facility] AUTO NRBC % 0.0 % Normal 10/25/20 0 - 0 [facility] RED CELL COUNT 3.1 10*6/ L Below low normal 10/25/20 4.4 - 5.9 [facility] MICROALBUMIN/CREATINI NE 103.0 mg/g Creat Above high normal 10/25/20 2 - 20 [facility] PROTEIN / CREATININE RATIO 0.35 Ratio Above high normal 10/25/20 - 0.2 [facility] PROTEIN, RANDOM URINE 23.0 mg/dL Normal [facility] EPITHELIAL CELLS None Seen Normal 10/25/20 24 - [facility] HEMOGLOBIN, URINE Large Abnormal 10/25/20 24 - [facility] COLOR OF URINE Yellow Normal 10/25/20 - [facility] BACTERIA None Seen Normal 10/25/20 - [facility] SPECIFIC GRAVITY 1.015 Normal 10/25/20 - [facility] KETONES URINE Negative Normal 10/25/20 - [facility] PH OF URINE 5.5 Normal 10/25/20 5 - 8 [facility] PROTEIN QUAL 30.0 mg/dL Abnormal 10/25/20 24 - [facility] NITRITE Negative Normal 10/25/20 - [facility] LEUKOCYTE ESTERASE Negative Normal 10/25/20 - [facility] WBC 0-5 Normal 10/25/20 0 - 5 [facility] RBC 3-5 Abnormal 10/25/20 0 - 2 [facility] UROBILINOGEN, URINE 0.2 EU/dL Normal 10/25/20 0.2 - 1 [facility] SYSMEX CASTS 0-2 Normal 10/25/20 - [facility] GLUCOSE QUAL 500.0 mg/dL Abnormal 10/25/20 - [facility] BILIRUBIN, URINE Negative Normal 10/25/20 - [facility] CLARITY OF URINE Clear Normal 10/25/20 - [facility] SODIUM, RANDOM 50.0 mmol/L Normal 10/25/20 [facility] CREATININE, RANDOM 66.0 mg/dL Normal 10/25/20 [facility] UREA NITROGEN, RANDOM 417.0 mg/dL Normal [facility] POCT GLUCOSE 182.0 mg/dL Normal 10/25/20 70 - 200 [facility] LACTIC ACID 2.7 mmol/L Above high normal 10/25/20 0.5 - 1.9 [facility] POTASSIUM 3.7 mmol/L Normal 10/25/20 3.6 - 5.1 [facility] B-HYDROXYBUTYRIC ACID 0.5 mmol/L Above high normal 1 12/26/19 0 - 0.3 [facility] SODIUM 137.0 mmol/L Normal 10/25/20 137 - 144 [facility] POTASSIUM Normal 10/25/20 [facility] GLOMERULAR FILTRATION RATE ML/MIN/1.73 SQ M.PREDICTED 3.0 mL/min/1.73m*2 Below low normal 10/25/20 60 - [facility] ANION GAP 25.0 mmol/L Above high normal 10/25/20 3 - 11 [facility] UREA NITROGEN 158.0 mg/dL Critically high 10/25/20 8 - 24 [facility] BICARBONATE 16.0 mmol/L Below low normal 10/25/20 23 - 32 [facility] CALCIUM, TOTAL 7.4 mg/dL Below low normal 10/25/20 8.4 - 10.2 [facility] GLUCOSE 177.0 mg/dL Normal 10/25/20 70 - 200 [facility] CHLORIDE 96.0 mmol/L Below low normal 10/25/20 100 - 111 [facility] CREATININE 18.3 mg/dL Above high normal 10/25/20 0.6 - 1.2 [facility] MONOCYTE % 9.0 % Normal 10/25/20 4 - [address] [facility] [address] 0.0 10*3/uL Normal 0 24 0 - 0.[address] [facility] [address] 1.0 10*3/uL Above high normal 1 12/26/19 0.2 - 0.8 [facility] RBC DISTRIBUTION WIDTH 11.4 % Below low normal 10/25/20 11.6 - 14.8 [facility] PLATELET COUNT 102.0 10*3/uL Below low normal 10/25/20 150 - [address] [facility] [address] 0.7 10*3/uL Normal 10/25/20 0.7 - 4.5 [facility] IMMATURE GRANULOCYTE % 0.4 % Normal 10/25/20 0 - 0.6 [facility] NEUTROPHIL % 82.5 % Above high normal 10/25/20 40 - 70 [facility] BASOPHILS % 0.2 % Normal 10/25/20 0 - 2 [facility] HEMOGLOBIN 11.4 g/dL Below low normal 10/25/20 13 - 18 [facility] MCV 89.8 fL Normal 10/25/20 80 - 100 [facility] RED CELL COUNT 3.54 10*6/ L Below low normal 10/25/20 4.4 - 5.9 [facility] LYMPHOCYTE % 5.7 % Below low normal 10/25/20 20 - [address] [facility] [address] 0.3 10*3/uL Normal 10/25/20 0 - 0.3 [facility] HEMATOCRIT 31.8 % Below low normal 10/25/20 40 - 52 [facility] MCHC 35.8 g/dL Normal 10/25/20 32 - 36 [facility] EOSINOPHIL % 2.2 % Normal 10/25/20 0 - 6 [facility] MCH 32.2 pg Normal 10/25/20 26 - 34 [facility] AUTO NRBC % 0.0 % Normal 10/25/20 0 - 0 [facility] WHITE CELL COUNT 11.4 10*3/uL Above high normal 24 3.8 - 10.[address] [facility] [address] 9.4 10*3/uL Above high normal 10/25/20 24 1.4 - 6.3 [facility] BICARBONATE 17.0 mmol/L Below low normal 10/24/20 23 - 32 [facility] GLUCOSE 182.0 mg/dL Normal 10/24/20 70 - 200 [facility] ALBUMIN, AUTOMATED 3.3 g/dL Below low normal 10/24 3.8 - 5.3 [facility] AST (SGOT) 103.0 U/L Above high normal 10/24/20 17 - 35 [facility] ANION GAP 26.0 mmol/L Above high normal 10/24/20 3 - 11 [facility] ALT (SGPT) 43.0 U/L Above high normal 10/24/20 8 - 39 [facility] SODIUM 138.0 mmol/L Normal 10/24/20 137 - 144 [facility] UREA NITROGEN 162.0 mg/dL Critically high 10/24/20 8 - 24 [facility] CHLORIDE 95.0 mmol/L Below low normal 10/24/20 100 - 111 [facility] CREATININE 18.4 mg/dL Above high normal 10/24/20 0.6 - 1.2 [facility] PROTEIN TOTAL 5.8 g/dL Below low normal 10/24/20 6.2 - 8.1 [facility] POTASSIUM 4.0 mmol/L Normal 10/24/20 3.6 - 5.1 [facility] GLOMERULAR FILTRATION RATE ML/MIN/1.73 SQ M.PREDICTED 3.0 mL/min/1.73m*2 Below low normal 10/24/20 24 60 - [facility] CALCIUM, TOTAL 7.5 mg/dL Below low normal 10/24/20 8.4 - 10.2 [facility] BILIRUBIN, TOTAL 0.5 mg/dL Normal 10/24/20 0.1 - 1.2 [facility] ALKALINE PHOSPHATASE 81.0 U/L Normal 0 24 39 - 113 [facility] HEMATOCRIT 32.5 % Below low normal 10/24/20 40 - [address] [facility] [address] 0.6 10*3/uL Below low normal 10/24/20 24 0.7 - 4.5 [facility] WHITE CELL COUNT 12.3 10*3/uL Above high normal 3.8 - 10.6 [facility] EOSINOPHIL % 1.0 % Normal 10/24/20 0 - 6 [facility] MCV 90.8 fL Normal 10/24/20 80 - 100 [facility] HEMOGLOBIN 11.3 g/dL Below low normal 10/24/20 13 - 18 [facility] NEUTROPHIL % 84.9 % Above high normal 10/24/20 40 - 70 [facility] PLATELET COUNT 81.0 10*3/uL Below low normal 10/24/20 150 - 440 [facility] BASOPHILS % 0.2 % Normal 10/24/20 0 - 2 [facility] AUTO NRBC % 0.0 % Normal 10/24/20 0 - 0 [facility] RBC DISTRIBUTION WIDTH 11.3 % Below low normal 10/24/20 11.6 - 14.8 [facility] MCH 31.6 pg Normal 10/24/20 26 - [address] [facility] [address] 1.0 10*3/uL Above high normal 1 12/25/19 0.2 - 0.8 [facility] MONOCYTE % 8.5 % Normal 10/24/20 4 - [address] [facility] [address] 0.1 10*3/uL Normal 10/24/20 0 - 0.3 [facility] LYMPHOCYTE % 4.9 % Below low normal 10/24/20 20 - [address] [facility] [address] 0.0 10*3/uL Normal 0 24 0 - 0.2 [facility] RED CELL COUNT 3.58 10*6/ L Below low normal 10/24/20 4.4 - 5.9 [facility] IMMATURE GRANULOCYTE % 0.5 % Normal 10/24/20 0 - 0.[address] [facility] [address] 10.5 10*3/uL Above high normal 10/24/20 1.4 - 6.3 [facility] MCHC 34.8 g/dL Normal 10/24/20 32 - 36 [facility] POCT CREATININE 1.2 mg/dL Normal 05/29/20 0.6 - 1.2 [facility] ISTAT SAMPLE TYPE VENOUS Normal 05/29/20 [facility] POCT GLUCOSE 149.0 mg/dL Normal 03/07/20 24 70 - 200 [facility] POCT GLUCOSE 174.0 mg/dL Normal 03/07/20 24 70 - 200 [facility] POCT GLUCOSE 269.0 mg/dL Above high normal 03/06/20 24 70 - 200 [facility] POCT GLUCOSE 302.0 mg/dL Above high normal 03/06/20 24 70 - 200 [facility] POCT GLUCOSE 196.0 mg/dL Normal 03/06/20 24 70 - 200 [facility] ACTIVATED PARTIAL THROMBOPLASTIN TIME IN PPP BY COAGULATION ASSAY 29.0 seconds Normal 03/06/20 24 25.1 - 36.5 [facility] RED CELL COUNT 3.05 10*6/ L Below low normal 03/06/20 24 4.4 - 5.9 [facility] MCV 93.1 fL Normal 03/06/20 24 80 - 100 [facility] AUTO NRBC % 0.0 % Normal 03/06/20 0 - 0 [facility] MCH 31.5 pg Normal 03/06/20 24 26 - 34 [facility] WHITE CELL COUNT 9.1 10*3/uL Normal 03/06/20 24 3.8 - 10.6 [facility] RBC DISTRIBUTION WIDTH 12.8 % Normal 03/06/20 24 11.6 - 14.8 [facility] HEMATOCRIT 28.4 % Below low normal 03/06/20 24 40 - 52 [facility] PLATELET COUNT 139.0 10*3/uL Below low normal 03/06/20 24 150 - 440 [facility] MCHC 33.8 g/dL Normal 03/06/20 24 32 - 36 [facility] HEMOGLOBIN 9.6 g/dL Below low normal 03/06/20 24 13 - 18 [facility] ACTIVATED PARTIAL THROMBOPLASTIN TIME IN PPP BY COAGULATION ASSAY 30.9 seconds Normal 03/06/20 24 25.1 - 36.5 [facility] POCT GLUCOSE 140.0 mg/dL Normal 03/05/20 24 70 - 200 [facility] ABO GROUP (TYPE) IN BLOOD B Normal 03/05/20 24 [facility] RH TYPE IN BLOOD POS Normal 03/05/20 24 [facility] ANTIBODY SCREEN NEG Normal 03/05/20 24 [facility] RH TYPE IN BLOOD POS Normal 03/05/20 24 [facility] ABO GROUP (TYPE) IN BLOOD B Normal 04/30/20 24 [facility] POCT GLUCOSE 148.0 mg/dL Normal 03/05/20 70 - 200 [facility] PROSTATE SPECIFIC ANTIGEN, FREE 0.3 ng/mL Normal 02/29/20 [facility] PROSTATE SPECIFIC ANTIGEN, TOTAL 1.1 ng/mL Normal 02/29/20 0 - 4 [facility] PROSTATE SPECIFIC AG PERCENT FREE 27.0 % Normal 02/29/20 [facility] THYROID STIM HORMONE 2.54 uIU/mL Normal 0 24 0.35 - 4.94 [facility] LDL CHOLESTEROL FRIEDWALD CALC 21.0 mg/dL Normal 02/29/20 [facility] FASTING? No Normal 02/29/20 [facility] TRIGLYCERIDE 227.0 mg/dL Normal 02/29/20 [facility] CHOLESTEROL, TOTAL 106.0 mg/dL Normal 02/29/20 [facility] CHOLESTEROL, HDL 40.0 mg/dL Normal 02/29/20 [facility] URIC ACID 4.7 mg/dL Normal 02/29/20 3.4 - 7.8 [facility] PROTEIN TOTAL 7.3 g/dL Normal 02/29/20 6.2 - 8.1 [facility] GLOMERULAR FILTRATION RATE ML/MIN/1.73 SQ M.PREDICTED 44.0 mL/min/1.73m*2 Below low normal 02/29/20 60 - [facility] POTASSIUM 4.5 mmol/L Normal 02/29/20 3.6 - 5.1 [facility] GLUCOSE 222.0 mg/dL Above high normal 02/29/20 70 - 200 [facility] AST (SGOT) 24.0 U/L Normal 02/29/20 17 - 35 [facility] SODIUM 140.0 mmol/L Normal 02/29/20 137 - 144 [facility] ANION GAP 10.0 mmol/L Normal 02/29/20 3 - 11 [facility] CHLORIDE 103.0 mmol/L Normal 02/29/20 100 - 111 [facility] BICARBONATE 27.0 mmol/L Normal 02/29/20 23 - 32 [facility] CALCIUM, TOTAL 9.9 mg/dL Normal 02/29/20 8.4 - 10.2 [facility] BILIRUBIN, TOTAL 0.5 mg/dL Normal 02/29/20 0.1 - 1.2 [facility] ALT (SGPT) 27.0 U/L Normal 02/29/20 8 - 39 [facility] ALKALINE PHOSPHATASE 106.0 U/L Normal 0 24 39 - 113 [facility] CREATININE 1.7 mg/dL Above high normal 02/29/20 0.6 - 1.2 [facility] UREA NITROGEN 26.0 mg/dL Above high normal 02/29/20 24 8 - 24 [facility] ALBUMIN, AUTOMATED 4.4 g/dL Normal 02/29/20 3.8 - 5.3 [facility] EPITHELIAL CELLS None Seen Normal 02/29/20 24 - [facility] PH OF URINE 6.0 Normal 02/29/20 5 - 8 [facility] COLOR OF URINE Yellow Normal 02/29/20 - [facility] RBC 0-2 Normal 02/29/20 0 - 2 [facility] CASTS, GRANULAR Present Abnormal 02/29/20 - [facility] CRYSTALS, ROJAS URATES Present Abnormal - [facility] SPECIFIC GRAVITY 1.02 Normal 02/29/20 - [facility] BILIRUBIN, URINE Negative Normal 02/29/20 - [facility] KETONES URINE Negative Normal 02/29/20 - [facility] WBC 0-5 Normal 02/29/20 0 - 5 [facility] BACTERIA None Seen Normal 02/29/20 - [facility] UROBILINOGEN, URINE 1.0 EU/dL Normal 02/29/20 0.2 - 1 [facility] LEUKOCYTE ESTERASE Negative Normal 02/29/20 - [facility] NITRITE Negative Normal 02/29/20 - [facility] HEMOGLOBIN, URINE Small Abnormal 02/29/20 24 - [facility] PROTEIN QUAL 100.0 mg/dL Abnormal 02/29/20 - [facility] CLARITY OF URINE Clear Normal 02/29/20 24 - [facility] SYSMEX CASTS 0-2 Normal 02/29/20 24 - [facility] GLUCOSE QUAL >=1000 Abnormal 02/29/20 - [facility] ACTIVATED PARTIAL THROMBOPLASTIN TIME IN PPP BY COAGULATION ASSAY 32.4 seconds Normal 02/29/20 24 25.1 - 36.5 [facility] INR 1.1 ratio Normal 02/29/20 0.9 - 1.1 [facility] PROTHROMBIN TIME (PT) 12.4 seconds Normal 10.4 - 13 [facility] GYCOHEMOGLOBIN A1C 6.6 % Above high normal 02/05 4.4 - 6.4 [facility] NEUTROPHIL % 74.8 % Above high normal 02/29/20 40 - [address] [facility] [address] 0.1 10*3/uL Normal 0 24 0 - 0.2 [facility] EOSINOPHIL % 8.2 % Above high normal 02/29/20 0 - 6 [facility] BASOPHILS % 0.6 % Normal 02/29/20 0 - [address] [facility] [address] 1.1 10*3/uL Normal 02/29/20 0.7 - 4.5 [facility] WHITE CELL COUNT 11.0 10*3/uL Above high normal 3.8 - 10.[address] [facility] [address] 8.2 10*3/uL Above high normal 02/29/20 1.4 - 6.3 [facility] IMMATURE GRANULOCYTE % 0.2 % Normal 02/29/20 0 - 0.6 [facility] MCHC 33.4 g/dL Normal 02/29/20 32 - 36 [facility] MCV 91.5 fL Normal 02/29/20 80 - 100 [facility] MONOCYTE % 6.6 % Normal 02/29/20 4 - 12 [facility] RED CELL COUNT 3.76 10*6/ L Below low normal 02/29/20 4.4 - 5.[address] [facility] [address] 0.9 10*3/uL Above high normal 02/29/20 0 - 0.3 [facility] LYMPHOCYTE % 9.6 % Below low normal 02/29/20 20 - [address] [facility] [address] 0.7 10*3/uL Normal 0.2 - 0.8 [facility] HEMOGLOBIN 11.5 g/dL Below low normal 02/29/20 13 - 18 [facility] RBC DISTRIBUTION WIDTH 12.6 % Normal 02/29/20 11.6 - 14.8 [facility] MCH 30.6 pg Normal 02/29/20 26 - 34 [facility] PLATELET COUNT 211.0 10*3/uL Normal 02/29/20 150 - 440 [facility] AUTO NRBC % 0.0 % Normal 02/29/20 0 - 0 [facility] HEMATOCRIT 34.4 % Below low normal 02/29/20 24 40 - 52 [facility] History of Medication Use Medication Directions Dispensed Refills Start Date End Date Stat nirmatrelvir-ritonav ir (Paxlovid) 150 mg (10)- 100 mg (10) tablets Take 2 tablets by mouth in the morning and 2 tablets before bedtime. Take one nirmatrelvir 150 mg tablet with one ritonavir 100 mg tablet twice daily for 5 days. Morning dose is from the white side of the blister card. Evening dose is from the pink side of the blister card. 07/21/2025 active losartan (Cozaar) 50 mg tablet Take 1 tablet (50 mg total) by mouth in the morning. 07/08/2025 active metoPROLOL SUCCINATE (TOPROL-XL) 25 MG 24 hr tablet Take 3 tablets (75 mg total) by mouth daily. 06/20/2025 active spironolactone (ALDACTONE) 25 MG tablet Take 1 tablet (25 mg total) by mouth daily. 06/20/2025 active torsemide (DEMADEX) 20 mg tablet Takes 2 tabs in the AM Takes 1 tablet HS 04/21/2025 active collagenase (SANTYL) ointment Apply 1 Application topically in the morning. 04/03/2025 active insulin glargine (Lantus Solostar U-100 Insulin) 100 unit/mL (3 mL) insulin pen 10 UNITS SUBCUTANEOUS IN AM AND 20 UNITS SUBCUTANEOUS IN PM 03/26/2025 active lidocaine (URO-JET) 2 % jelly Topical, Once, On Mon03/24/25 at 1400, For 1 dose 03/24/2025 completed doxycycline (VIBRA-TABS) 100 MG tablet Take 1 tablet (100 mg total) by mouth 2 (two) times a day. 03/24/2025 active empagliflozin (JARDIANCE) 10 MG tablet Take 1 tablet (10 mg total) by mouth every morning. 02/28/2025 active metoPROLOL SUCCINATE (TOPROL-XL) 25 MG 24 hr tablet Take 2 tablets (50 mg total) by mouth daily. 02/28/2025 active metoprolol succinate XL (TOPROL-XL) 25 mg 24 hr tablet Take 50 mg by mouth in the morning. 02/28/2025 active metoprolol succinate XL (TOPROL-XL) 25 mg 24 hr tablet Take 75 mg by mouth in the morning. 02/28/2025 active spironolactone (ALDACTONE) 25 mg tablet Take 12.5 mg by mouth in the morning. 02/28/2025 active spironolactone (ALDACTONE) 25 mg tablet Take 25 mg by mouth in the morning. 02/28/2025 active spironolactone (ALDACTONE) 25 MG tablet Take 0.5 tablets (12.5 mg total) by mouth daily. 02/28/2025 active ketoconazole (NIZORAL) 2 % cream Apply topically daily. 02/27/2025 active empagliflozin (JARDIANCE) 25 MG tablet Take 13 mg by mouth every morning. 10 mg 02/18/2025 aborted empagliflozin (JARDIANCE) 25 mg tablet Take 0.5 tablets (13 mg total) by mouth in the morning. 02/18/2025 active gabapentin (NEURONTIN) 100 mg capsule Take 1-3 capsules (100-300 mg total) by mouth nightly. 02/14/2025 active sertraline (ZOLOFT) 50 mg tablet Take 1 tablet (50 mg total) by mouth in the morning. 02/14/2025 active ferrous sulfate 324 mg (65 mg iron) EC tablet Take 1 tablet (324 mg total) by mouth 3 (three) times a week. 02/10/2025 active atorvastatin (LIPITOR) 80 mg tablet Take 1 tablet (80 mg total) by mouth nightly. 02/07/2025 active metoPROLOL TARTRATE (LOPRESSOR) 25 MG tablet Take 1 tablet (25 mg total) by mouth. 02/07/2025 aborted empagliflozin (JARDIANCE) 10 mg tablet Take 1 tablet (10 mg total) by mouth in the morning. 02/07/2025 active hydrALAZINE (APRESOLINE) 25 mg tablet Take 1 tablet (25 mg total) by mouth in the morning and 1 tablet (25 mg total) at noon and 1 tablet (25 mg total) before bedtime. 02/07/2025 active hydrALAZINE (APRESOLINE) 25 MG tablet Take 1 tablet (25 mg total) by mouth 3 (three) times a day with meals. 02/07/2025 active isosorbide dinitrate (ISORDIL) 20 mg tablet Take 1 tablet (20 mg total) by mouth in the morning and 1 tablet (20 mg total) at noon and 1 tablet (20 mg total) before bedtime. 02/07/2025 active metoprolol tartrate (LOPRESSOR) 25 mg tablet Take 1 tablet (25 mg total) by mouth in the morning. 02/07/2025 active torsemide (DEMADEX) 20 mg tablet Take 2 tablets (40 mg total) by mouth in the morning and 2 tablets (40 mg total) before bedtime. 02/07/2025 active furosemide (LASIX) 20 mg tablet Take 2 tablets (40 mg total) by mouth in the morning and 2 tablets (40 mg total) before bedtime. 01/28/2025 active ketoconazole (NIZORAL) 2 % cream Apply topically daily. 01/13/2025 active insulin glargine (SEMGLEE) 100 unit/mL injection 10 units subcutaneous in AM and 20 units subcutaneous in PM 12/27/2024 active furosemide (LASIX) 20 mg tablet Take 1 tablet (20 mg total) by mouth in the morning. 11/14/2024 5 active rosuvastatin (CRESTOR) 40 mg tablet TAKE 1 TABLET BY MOUTH EVERY DAY AT NIGHT 11/11/2024 5 aborted predniSONE (DELTASONE) 10 MG tablet Take by mouth. Take 5 tablets (50 mg total) by mouth daily for 2 days, THEN 4 tablets (40 mg total) daily for 3 days, THEN 3 tablets (30 mg total) daily for 3 days, THEN 2 tablets (20 mg total) daily for 3 days, THEN 1 tablet (10 mg total) daily for 14 days. 11/04/2024 5 active insulin glargine (SEMGLEE) 100 unit/mL injection Inject 0.1 mL (10 Units total) under the skin daily with breakfast. 11/04/2024 5 active predniSONE (DELTASONE) 10 mg tablet Take 5 tablets (50 mg total) by mouth daily for 2 days, THEN 4 tablets (40 mg total) daily for 3 days, THEN 3 tablets (30 mg total) daily for 3 days, THEN 2 tablets (20 mg total) daily for 3 days, THEN 1 tablet (10 mg total) daily for 14 days. 11/04/2024 active insulin glargine (LANtus/SEMGLEE) 100 units/mL injection Inject 0.1 mL (10 Units total) under the skin. 11/04/2024 active benzonatate (TESSALON) 100 MG capsule Take 1 capsule (100 mg total) by mouth 3 (three) times a day as needed. 11/03/2024 active gabapentin (NEURONTIN) 100 mg capsule Take 1 capsule (100 mg total) by mouth in the morning and 1 capsule (100 mg total) at noon and 1 capsule (100 mg total) before bedtime. Can take up to 5 times daily. 11/03/2024 active HumaLOG U-100 Insulin 100 unit/mL injection Inject 0-0.15 mL (0-15 Units total) under the skin 3 (three) times a day before meals. Blood Glucose mg/dL Pre-meal: 151-200 0 units, 201-250 2 units, 251-300 3 units, 301-350 4 units, 351-400 5 units ,> 400 Call LIP 6 units. 11/03/2024 active benzonatate (Tessalon Perles) 100 mg capsule Take 1 capsule (100 mg total) by mouth 3 (three) times a day as needed for cough for up to 7 days. 11/03/2024 5 active fluticasone (FloNASE) 50 mcg/spray nasal spray 1 spray into each nostril 2 (two) times a day. 11/03/2024 active fluticasone propionate (FLONASE) 50 mcg/actuation nasal spray Administer 1 spray into each nostril in the morning and 1 spray before bedtime. 11/03/2024 active lancets misc 1 Stick in the morning and 1 Stick at noon and 1 Stick before bedtime. 11/03/2024 active pen needle, diabetic (UltiCare Pen Needle) 29 gauge x 1/2 needle Use to inject 1-4 times daily as directed. 11/03/2024 active famotidine (PEPCID) tablet Take 1 tablet (20 mg total) by mouth in the morning and 1 tablet (20 mg total) before bedtime. 10/24/2024 5 active ondansetron ODT (ZOFRAN-ODT) 4 mg disintegrating tablet Take 1 tablet (4 mg total) by mouth every 8 (eight) hours as needed for nausea or vomiting for up to 2 days. 10/24/2024 4 active levoFLOXacin (LEVAQUIN) 750 MG tablet Take 1 tablet (750 mg total) by mouth daily. 10/02/2024 4 active metFORMIN (GLUCOPHAGE) 500 mg tablet TAKE 2 TABLETS (1,000 MG TOTAL) BY MOUTH IN THE MORNING AND IN THE EVENING WITH MEALS 09/20/2024 active ciprofloxacin (CIPRO) 500 MG tablet Take 1 tablet (500 mg total) by mouth 2 (two) times a day. 09/09/2024 4 active cilostazol (PLETAL) 50 mg tablet Take 1 tablet (50 mg total) by mouth 2 (two) times a day. 09/05/2024 5 active amoxicillin-clavulan ate (AUGMENTIN) 875-125 MG per tablet Take 1 tablet by mouth 2 (two) times a day. 09/05/2024 4 active rosuvastatin (CRESTOR) 40 mg tablet Take 1 tablet (40 mg total) by mouth nightly. 08/19/2024 5 active Jardiance 25 mg tablet Take 1 tablet (25 mg total) by mouth in the morning. 08/19/2024 4 active metFORMIN (GLUCOPHAGE) 500 mg tablet Take 2 tablets (1,000 mg total) by mouth in the morning and 2 tablets (1,000 mg total) in the evening. Take with meals. 07/29/2024 4 active zolpidem (AMBIEN) 10 mg tablet Take 1 tablet (10 mg total) by mouth nightly as needed for insomnia. G47.0 07/09/2024 5 active nitroglycerin (Nitro-Bid) 2 % ointment Place 0.5 inches on the skin daily. Apply 0.5 inch around foot wound daily. 07/04/2024 5 active cilostazoL (PLETAL) 50 mg tablet TAKE 1 TABLET (50 MG TOTAL) BY MOUTH IN THE MORNING AND 1 TABLET (50 MG TOTAL) BEFORE BEDTIME 07/03/2024 5 active lidocaine (LMX 4) 4 % cream Topical, Once, On Mon11/18/24 at 1330, For 1 dose, Apply to right foot Apply to intact skin., Site of application: Foot-right 06/20/2024 5 completed LORazepam (ATIVAN) 1 mg tablet Take 1 tablet (1 mg total) by mouth daily as needed for anxiety or insomnia. 04/16/2024 5 active collagenase (SANTYL) ointment Apply 1 application(s) topically daily. 03/28/2024 5 active lidocaine (XYLOCAINE) 2 % jelly 03/21/2024 5 completed SantyL ointment APPLY TO AFFECTED AREA TOPICALLY EVERY DAY 03/21/2024 4 active doxycycline (VIBRAMYCIN) 100 mg capsule Take 1 capsule (100 mg total) by mouth in the morning and 1 capsule (100 mg total) before bedtime. Do all this for 10 days. 03/18/2024 4 active doxycycline (VIBRAMYCIN) 100 MG capsule Take 1 capsule (100 mg total) by mouth 2 (two) times a day. 03/18/2024 4 active aspirin 81 mg chewable tablet Take 81 mg by mouth in the morning. 03/10/2024 active oxyCODONE (ROXICODONE) 5 mg immediate release tablet Take 1 tablet (5 mg total) by mouth daily as needed for moderate pain (4-7). Max Daily Amount: 5 mg 03/07/2024 5 active sennosides-docusate sodium (SENOKOT-S) 8.6-50 mg tablet Take 2 tablets by mouth nightly for 5 days. While taking narcotics 03/07/2024 4 active acetaminophen (TYLENOL) 325 mg tablet Take 650 mg by mouth Every 6 (six) hours for 4 days. 03/07/2024 4 active Xarelto tablet Take 1 tablet (20 mg total) by mouth daily with dinner. 03/07/2024 active gabapentin (NEURONTIN) 300 MG capsule Take 1 capsule (300 mg total) by mouth 3 (three) times a day. 01/09/2024 active acetaminophen (TYLENOL) 650 MG CR tablet Take 1 tablet (650 mg total) by mouth every 6 (six) hours. x 4 days 5 active famotidine (PEPCID) 40 MG tablet Take 1 tablet (40 mg total) by mouth daily as needed for indigestion. active losartan (COZAAR) 50 MG tablet Take 1 tablet (50 mg total) by mouth daily. 5 active valsartan (DIOVAN) 80 MG tablet Take 1 tablet (80 mg total) by mouth daily. 5 active aspirin 81 mg EC tablet Take 81 mg by mouth nightly. 5 active valsartan (DIOVAN) 80 mg tablet Take 80 mg by mouth nightly. 5 active empagliflozin (JARDIANCE) 25 MG tablet Take 1 tablet (25 mg total) by mouth every morning. active rivaroxaban (XARELTO) 20 MG tablet Take 1 tablet (20 mg total) by mouth every evening with dinner. active acetaminophen (TYLENOL) 650 mg 8 hr tablet Take 650 mg by mouth. Every 6 hours active aspirin 81 MG chewable tablet Chew 1 tablet (81 mg total) daily. active atorvastatin (LIPITOR) 80 MG tablet Take 1 tablet (80 mg total) by mouth daily. active famotidine (PEPCID) 40 mg tablet Take 40 mg by mouth as needed for heartburn. active gabapentin (NEURONTIN) 300 mg capsule Take 300 mg by mouth in the morning and 300 mg at noon and 300 mg before bedtime. Can take up to 5 times daily. active insulin lispro (ADMELOG/HUMALOG) 100 unit/mL injection Inject 1 Units under the skin in the morning and 1 Units at noon and 1 Units in the evening. Inject before meals. active LORazepam (ATIVAN) 1 MG tablet Take 1 tablet (1 mg total) by mouth 3 times daily (every 8 hours) as needed for anxiety. active metFORMIN (FORTAMET) 1000 MG (OSM) 24 hr tablet Take 1 tablet (1,000 mg total) by mouth 2 (two) times a day with meals. active metFORMIN (GLUCOPHAGE) 500 mg tablet Take 500 mg by mouth in the morning and 500 mg in the evening. Take with meals. active MILRINONE LACTATE IN DEXTROSE IV Infuse 0.125 mcg/kg/min x 88.6 kg into a venous catheter continuously. active oxyCODONE (OXY-IR) 5 mg capsule Take 5 mg by mouth every 6 (six) hours as needed for moderate pain (4-7). active oxyCODONE (ROXICODONE) 5 MG immediate release tablet Take 1 tablet (5 mg total) by mouth 4 times daily (every 6 hours) as needed for moderate pain. active rosuvastatin (CRESTOR) 40 MG tablet Take 1 tablet (40 mg total) by mouth daily. active senna-docusate (SENNA-S) 8.6-50 MG Take 2 tablets by mouth daily. while taking narcotics active torsemide (DEMADEX) 20 MG tablet Take 2 tablets (40 mg total) by mouth 2 (two) times a day in the morning and the early evening.. active zolpidem (AMBIEN) 10 MG tablet Take 1 tablet (10 mg total) by mouth nightly as needed for sleep. active Allergies Allergen Reaction Severity Comment Documented Date Source Statu s MORPHINE DELIRIUM/CONFUSION/PSYCHOSIS 11/11/2022 [facility] active Problems Problem Status Onset Date Problem Type Date of Resolution Source Diabetic ulcer of toe of right foot associated with type 2 diabetes mellitus, with fat layer exposed (HCC) active EncounterDiagnosisAct CCT Type 2 diabetes mellitus without complication, without long-term current use of insulin active 2025-06-20 [facility] Chronic heart failure with reduced ejection fraction (HFrEF, <= 40%) and combined systolic and diastolic dysfunction active 2025-02-28 ProblemAct [facility] History of acute inferior wall PA active 2023-09-01 [facility]Act [facility] Dyslipidemia active 2022-10-17 ProblemAct [facility] Ischemia of lower extremity active 2024-02-26 ProblemAct [facility] Diabetic peripheral neuropathy active 2022-12-09 ProblemAct [facility] Elevated serum creatinine active 2024-10-25 ProblemAct [facility] PVD (peripheral vascular disease) active 2024-03-05 ProblemAct [facility] Ischemic cardiomyopathy active 2024-03-04 ProblemAct [facility] Coronary artery disease involving [place] heart active 2024-03-04 ProblemAct [facility] History of coronary artery bypass surgery active 2019-01-03 ProblemAct [facility] Biventricular congestive heart failure active 2025-01-30 ProblemAct [facility] Hypertension active 2024-03-04 ProblemAct [facility] Type 2 diabetes mellitus active 2018-12-21 ProblemAct [facility] Non-healing wound of right heel active 2024-02-26 ProblemAct [facility] Encounters Encounter Type Encounter Reason Primary Diagnosis Location Date Ambulatory Type 2 diabetes mellitus without complications Type 2 diabetes mellitus without complications [facility] 10/24/2025 Ambulatory 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 [facility] 10/16/2025 Ambulatory 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 [facility] 09/25/2025 Ambulatory Other specified abnormal findings of blo Other specified abnormal findings of blood chemistry [facility] 09/19/2025 Ambulatory 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 [facility] 09/11/2025 Ambulatory 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 [facility] 08/28/2025 Ambulatory Biventricular heart failure Biventricular heart failure [facility] 08/26/2025 Ambulatory 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 [facility] 08/14/2025 Ambulatory Chronic kidney disease, stage 3b Chronic kidney disease, stage 3b [facility] 08/05/2025 Ambulatory 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 [facility] 07/31/2025 Ambulatory 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 [facility] 07/10/2025 Ambulatory 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 [facility] 06/26/2025 Ambulatory 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 [facility] 06/20/2025 Ambulatory Biventricular heart failure Biventricular heart failure [facility] 06/10/2025 Ambulatory 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 [facility] 06/05/2025 Ambulatory 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 [facility] 05/22/2025 Ambulatory 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 [facility] 05/15/2025 Ambulatory 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 [facility] 05/01/2025 Ambulatory 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 [facility] 04/24/2025 Ambulatory Biventricular heart failure Biventricular heart failure [facility] 04/23/2025 Ambulatory 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 [facility] 04/17/2025 Ambulatory 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 [facility] 04/03/2025 Ambulatory 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 [facility] 03/24/2025 Ambulatory Cardiomyopathy, unspecified Cardiomyopathy, unspecified [facility] 03/21/2025 Ambulatory 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 [facility] 03/10/2025 Ambulatory [facility] 03/04/2025 Ambulatory 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 [facility] 02/28/2025 Ambulatory 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 [facility] 02/24/2025 Ambulatory [facility] 02/19/2025 Ambulatory Hospital Discharge F/u Hospital Discharge F/u [facility] 02/18/2025 Ambulatory 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 [facility] 02/17/2025 Ambulatory TCM (Transitional Ca re Management) TCM (Transitional Care Management) [facility] 02/14/2025 Inpatient Biventricular heart failure Biventricular heart failure [facility] 01/30/2025 Ambulatory Localized edema Localized edema [facility] Ambulatory Acute kidney failure , unspecified Acute kidney failure, unspecified [facility] 01/28/2025 Ambulatory Localized edema Localized edema [facility] Ambulatory Localized edema Localized edema [facility] Ambulatory 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 [facility] 01/13/2025 Ambulatory Acute kidney failure , unspecified Acute kidney failure, unspecified [facility] 01/09/2025 Ambulatory 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 [facility] 12/30/2024 Ambulatory 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 [facility] 12/16/2024 Ambulatory Acute kidney failure , unspecified Acute kidney failure, unspecified [facility] 12/06/2024 Ambulatory Acute kidney failure , unspecified Acute kidney failure, unspecified [facility] 11/28/2024 Ambulatory 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 [facility] 11/18/2024 Ambulatory Essential (primary) hypertension Essential (primary) hypertension [facility] 11/14/2024 Ambulatory Acute kidney failure , unspecified Acute kidney failure, unspecified [facility] 11/14/2024 Ambulatory Acute pyelonephritis Acute pyelonephritis [facility] 11/12/2024 Ambulatory Personal history of other (healed) physical injury and trauma Personal history of other (healed) physical injury and trauma [facility] 11/07/2024 Inpatient Acute kidney failure , unspecified Acute kidney failure, unspecified [facility] 10/24/2024 Ambulatory Diarrhea, unspecified Diarrhea, unspecified [facility] 10/24/2024 Ambulatory 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 [facility] 10/24/2024 Ambulatory 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 [facility] 10/17/2024 Ambulatory 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 [facility] 10/02/2024 Ambulatory 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 [facility] 09/26/2024 Ambulatory 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 [facility] 09/19/2024 Ambulatory 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 [facility] 09/12/2024 Ambulatory 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 [facility] 09/05/2024 Ambulatory 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 [facility] 08/29/2024 Ambulatory Follow-up Follow-up [facility] 08/28/2024 Ambulatory 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 [facility] 08/22/2024 Ambulatory 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 [facility] 08/15/2024 Ambulatory Unspecified open wound, right foot, init Unspecified open wound, right foot, initial encounter [facility] 08/07/2024 Ambulatory 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 [facility] 08/01/2024 Ambulatory 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 [facility] 07/18/2024 Ambulatory 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 [facility] 07/04/2024 Ambulatory Unspecified open wound, right foot, init Unspecified open wound, right foot, initial encounter [facility] 07/03/2024 Ambulatory 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 [facility] 06/20/2024 Ambulatory 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 [facility] 06/06/2024 Ambulatory Unspecified open wound, right foot, init Unspecified open wound, right foot, initial encounter [facility] 05/29/2024 Ambulatory 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 [facility] 05/16/2024 Ambulatory 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 [facility] 05/02/2024 Ambulatory Peripheral vascular disease, unspecified Peripheral vascular disease, unspecified [facility] 05/01/2024 Ambulatory Unspecified open wound, right foot, init Unspecified open wound, right foot, initial encounter [facility] [employer] 05/01/2024 Ambulatory Peripheral vascular disease, unspecified Peripheral vascular disease, unspecified [employer] 05/01/2024 Ambulatory 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 [employer] 04/18/2024 Ambulatory 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 [employer] 04/11/2024 Ambulatory 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 [employer] 03/28/2024 Ambulatory 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 [employer] 03/21/2024 Ambulatory 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 [employer] 03/21/2024 Ambulatory Post-op Post-op [facility] 03/20/2024 Ambulatory 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 with unspecified severity [facility] 03/18/2024 Ambulatory [employer] 03/07/2024 Inpatient Other disorder of circulatory system Other disorder of circulatory system [facility] 03/05/2024 Ambulatory Other disorder of circulatory system Other disorder of circulatory system [facility] 02/29/2024 Ambulatory 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 [facility] 02/29/2024 Ambulatory Persons encountering health services in Persons encountering health services in other specified circumstances [facility] 02/28/2024 Ambulatory Peripheral vascular disease, unspecified Peripheral vascular disease, unspecified [facility] 02/26/2024 Ambulatory Peripheral vascular disease, unspecified Peripheral vascular disease, unspecified [facility] 02/26/2024 Ambulatory Other disorder of circulatory system Other disorder of circulatory system [facility] 02/26/2024 Ambulatory Peripheral vascular disease, unspecified Peripheral vascular disease, unspecified [facility] 02/26/2024 Ambulatory [facility] 02/24/2024 Ambulatory [facility] 01/29/2024 Ambulatory [facility] 01/12/2024 Ambulatory [facility] 12/23/2023 Ambulatory [facility] 12/21/2023 Ambulatory [facility] 09/07/2023 Ambulatory [facility] 09/05/2023 Ambulatory [facility] 07/21/2023 Ambulatory [facility] 07/07/2023 Ambulatory [facility] 07/07/2023 Ambulatory [facility] 07/07/2023 Ambulatory [facility] 06/06/2023 Ambulatory [facility] 12/22/2022 Ambulatory [facility] 12/16/2022 Ambulatory [facility] 11/11/2022 Ambulatory [facility] 11/11/2022 Ambulatory [facility] 11/02/2022 Ambulatory [facility] 10/21/2022 Ambulatory [facility] 10/20/2022 Ambulatory [facility] 10/14/2022 Care Team Organization Name Specialty Phone Email Start Date End Da te [employer] [facility] 08/20/2025 [employer] [facility] 01/27/2025 [employer] [facility] 01/15/2025 [employer] [facility] Primary Care 03/08/20[address] [facility] Primary Care 03/07/2024 [facility] 03/06/[address] [facility] 03/04/2024 [facility] Primary Care 2023 [facility] 02/26/2024
--- OUTSIDE RECORDS SUMMARY | 2025-10-24 20:39 | XMS_ITS | Encounter Summary ---
Author Organization [facility] Address [address] [place] [address] Care Team Providers Care Sales Coordinator Name Role Phone Mich Grimes Primary Care Provider [phone] Encounter Details Date Type Department Care Team (Late st Contact Info) Description 08/26/2025 Orders Only [facility] Department of Cardiology [address] [facility] [place] [address] Caryn Cid, FRAME NAILER [address] [facility] [place] [address] Social History Tobacco Use Types Packs/Day Years Used Date Smoking Tobacco: Passive Smoke Exposure - Never Smoker Cigarettes 0.3 16.1 - 04/06/2025 Smokeless Tobacco: Never Comments:2 cigs per day Alcohol Use Standard Drinks/Week Comments Not Currently 1 (1 standard drink = 0.6 oz pur e alcohol) social [facility] Utilities Answer Date Recorded In the past 12 months has e electric, gas, oil, or water company threatened to shut off services in your home? No 01/30/2025 Humiliation, Afraid, Rape, and Kick questionnair e Answer Date Recorded Within the last year, have y ou been afraid of your partner or ex-partner? No 01/30/2025 Within the last year, have y ou been humiliated or emotionally abused in other ways by your partner or ex-partner? No Within the last year, have y ou been kicked, hit, slapped, or otherwise physically hurt by your partner or ex-partner? No 01/30/2025 Within the last year, have y ou been raped or forced to have any kind of sexual activity by your partner or ex-partner? No 01/30/2025 Overall Financial Resource Strain (CARDIA) Answe r Date Recorded How hard is it for you to pa y for the very basics like food, housing, medical care, and heating? Not very hard 01/30/2025 PHQ-2 Answer Date Recorded PHQ-2 Score 0 03/21/2025 Hunger Vital Sign Answer Date Recorded Within the past 12 months, y ou worried that your food would run out before you got the money to buy more. Never true 01/31/20 25 Within the past 12 months, t he food you bought just didn't last and you didn't have money to get more. Never true 01/30/2025 PRAPARE - Transportation Answer Date Re corded In the past 12 months, has l ack of transportation kept you from medical appointments or from getting medications? Yes 01/30/2025 Lack of Transportation (Non-Medical) Not on file 01/30/2025 Housing Stability Vital Sign Answer Napoleon e Recorded Unable to Pay for Housing in the Last Year Not o n file 03/05/2024 Number of Places Lived in the Last Year Not on f ile 03/05/2024 In the last 12 months, was t here a time when you did not have a steady place to sleep or slept in a senior living (including now)? Yes 03/05/2024 Housing Stability Vital Sign Answer Napoleon e Recorded Unable to Pay for Housing in the Last Year Not o n file 01/30/2025 Number of Times Moved in the Last Year Not on fi le 01/30/2025 At any time in the past [address] [facility], were you homeless or living in a senior living (including now)? No 01/30/2025 Sex and Gender Information Value Date Recorded Sex Assigned at Male 02/28/2024 7:53 AM EDT Legal Sex Male 8:28 AM EDT Gender Identity Male 02/28/2024 7:53 AM EDT Sexual Orientation Straight 02/28/2024 7: 53 AM EDT COVID-19 Exposure Response Date Recorded In the last 10 days, have yo u been in contact with someone who was confirmed or suspected to have Coronavirus/COVID-19? No / Unsure 08/26/2025 9:23 AM EDT documented as of this encounter Plan of Treatment Upcoming Encounters Date Type Department Care Team (Late st Contact Info) Description 11/04/2025 2:00 PM EST Office Visit [facility] Department of Cardiology [address] [place] [address] Caryn Cid, [place] [address] [facility] [place] [address] 12/09/2025 11:00 AM EST Office Visit [facility] [address] [place] [address] Raul Thao MD [address] [place] [address] documented as of this encounter Visit Diagnoses Not on filedocumented in this encounter Care Teams Sales Coordinator Relationship Specialty Start Date End Date Mich Grimes PA [address] [facility] [address] [place] [address] PCP - General Internal Medicine 02/28/24 documented as of this encounter
--- OUTSIDE RECORDS SUMMARY | 2025-10-24 20:39 | XMS_ITS | Clinical Summary ---
Author Organization [facility] Address [address] [place] [address] Care Team Providers Care Envelope Sealer Name Role Phone Mich Grimes Primary Care Provider [phone] Allergies Active Allergy Reactions Criticality Noted Date Comments Morphine Anxiety,Delirium/Confusion/Psychosis Low 11/11/2022 Medications oxyCODONE (ROXICODONE) 5 MG immediate release tablet Take 1 tablet (5 mg total) by mouth 4 times daily (every 6 hours) as needed for moderate pain. Active senna-docusate (SENNA-S) 8.6-50 MG Take 2 tablets by mouth daily. while taking narcotics Active aspirin 81 MG chewable tablet Chew 1 tablet (81 mg total) daily. Active atorvastatin (LIPITOR) 80 MG tablet Take 1 tablet (80 mg total) by mouth daily. Active zolpidem (AMBIEN) 10 MG tablet Take 1 tablet (10 mg total) by mouth nightly as needed for sleep. Active gabapentin (NEURONTIN) 300 MG capsule Take 1 capsule (300 mg total) by mouth 3 (three) times a day. 4 Active [employer] Blood Glucose Test test strip To be used with your glucometer 4 11/03/20 25 Active insulin glargine (LANtus/SEMGLEE ) 100 units/mL injection Inject 0.1 mL (10 Units total) under the skin. 4 Active ketoconazole (NIZORAL) 2 % creamIndication s:Tinea pedis of both feet Apply topically daily. 60 g 11 5 Active MILRINONE LACTATE IN DEXTROSE IV Infuse 0.125 mcg/kg/min x 88.6 kg into a venous catheter continuously. Active torsemide (DEMADEX) 20 MG tablet Take 2 tablets (40 mg total) by mouth 2 (two) times a day in the morning and the early evening.. Active LORazepam (ATIVAN) 1 MG tablet Take 1 tablet (1 mg total) by mouth 3 times daily (every 8 hours) as needed for anxiety. Active spironolactone (ALDACTONE) 25 MG tabletIndicatio ns:Chronic heart failure with reduced ejection fraction (HFrEF, <= 40%) and combined systolic and diastolic dysfunction (HCC) Take 1 tablet (25 mg total) by mouth daily. 90 tablet 5 06/04/20 28 Active metoPROLOL SUCCINATE (TOPROL-XL) 100 MG 24 hr tabletIndicatio ns:Chronic heart failure with reduced ejection fraction (HFrEF, <= 40%) and combined systolic and diastolic dysfunction (HCC) Take 1 tablet (100 mg total) by mouth daily. 100 tablet 5 02/06/20 29 Active empagliflozin (JARDIANCE) 25 MG tabletIndicatio ns:Type 2 diabetes mellitus without complication, without long-term current use of insulin (HCC) Take 1 tablet (25 mg total) by mouth every morning. 90 tablet 5 10/08/20 28 Active sacubitril-vals sofy (ENTRESTO) 49-51 mg per tabletIndicatio ns:Chronic heart failure with reduced ejection fraction (HFrEF, <= 40%) and combined systolic and diastolic dysfunction (HCC) Take 1 tablet by mouth 2 (two) times a day. 180 tablet 5 01/23/20 26 Active metoPROLOL SUCCINATE (TOPROL-XL) 25 MG 24 hr tabletIndicatio ns:Chronic heart failure with reduced ejection fraction (HFrEF, <= 40%) and combined systolic and diastolic dysfunction (HCC) Take 3 tablets (75 mg total) by mouth daily. 270 tablet 5 10/24/20 25 Discontin ued(Dose adjustmen t) empagliflozin (JARDIANCE) 25 MG tabletIndicatio ns:Type 2 diabetes mellitus without complication, without long-term current use of insulin (HCC) Take 1 tablet (25 mg total) by mouth every morning. 90 tablet 11 5 10/24/20 25 Discontin ued(Reord er) losartan (COZAAR) 50 MG tablet Take 1 tablet (50 mg total) by mouth daily. In the morning 10/24/20 25 Discontin ued(Thera py completed ) empagliflozin (JARDIANCE) 25 MG tabletIndicatio ns:Type 2 diabetes mellitus without complication, without long-term current use of insulin (HCC) Take 1 tablet (25 mg total) by mouth every morning. 90 tablet 5 10/24/20 25 Discontin ued(Reord er) sacubitril-vals sofy (ENTRESTO) 49-51 mg per tabletIndicatio ns:Chronic heart failure with reduced ejection fraction (HFrEF, <= 40%) and combined systolic and diastolic dysfunction (HCC) Take 1 tablet by mouth 2 (two) times a day. 180 tablet 10/24/20 25 Discontin ued(Reord er) sacubitril-vals sofy (ENTRESTO) 49-51 mg per tabletIndicatio ns:Chronic heart failure with reduced ejection fraction (HFrEF, <= 40%) and combined systolic and diastolic dysfunction (HCC) Take 1 tablet by mouth 2 (two) times a day. 180 tablet 10/24/20 25 Discontin ued(Reord er) Hospital, Clinic, or Other Facility Administered Medication Ordered Dose Route Frequency Start Date End Date Status lidocaine (LMX 4) 4 % creamIndications:Diabetic ulcer of toe of right foot associated with type 2 diabetes mellitus, with fat layer exposed (HCC),Diabetic ulcer of right heel associated with type 2 diabetes mellitus, with fat layer exposed (HCC) TOP Once 09/25/2025 09/25/2025 Ended lidocaine (LMX 4) 4 % creamIndications:Diabetic ulcer of toe of right foot associated with type 2 diabetes mellitus, with fat layer exposed (HCC),Diabetic ulcer of right heel associated with type 2 diabetes mellitus, with fat layer exposed (HCC) TOP Once 10/16/2025 10/16/2025 Ended Active Problems Problem Noted Date Diagnosed Date Type 2 diabetes mellitus wit hout complication, without long-term current use of insulin 06/20/2025 Chronic heart failure with r educed ejection fraction (HFrEF, <= 40%) and combined systolic and diastolic dysfunction 02/28/2025 Encounters Date Type Department Care Team Description 10/24/2025 10:30 AM EST Office Visit [facility] Heart & Vascular [facility] [address] [facility] [address] [place] [address] Felipe Sweeney MD Chronic heart failure with reduced ejection fraction (HFrEF, <= 40%) and combined systolic and diastolic dysfunction (HCC) (Primary Dx); Type 2 diabetes mellitus without complication, without long-term current use of insulin (HCC) 10/16/2025 10:45 AM EST Office Visit [facility] [address] [phone] Ramo James DPM Diabetic ulcer of toe of right foot associated with type 2 diabetes mellitus, with fat layer exposed (HCC) (Primary Dx); Diabetic ulcer of right heel associated with type 2 diabetes mellitus, with fat layer exposed (HCC) 09/26/2025 Documentation [facility] [address] [phone] Donya Santiago RN 09/25/2025 12:45 PM EST Office Visit [facility] [address] [phone] Ramo James DPM Diabetic ulcer of toe of right foot associated with type 2 diabetes mellitus, with fat layer exposed (HCC) (Primary Dx); Diabetic ulcer of right heel associated with type 2 diabetes mellitus, with fat layer exposed (HCC) 09/11/2025 10:00 AM EST Office Visit [facility] [address] [phone] Ramo James DPM Diabetic ulcer of toe of right foot associated with type 2 diabetes mellitus, with fat layer exposed (HCC) (Primary Dx); Diabetic ulcer of right heel associated with type 2 diabetes mellitus, with fat layer exposed (HCC) 08/28/2025 12:45 PM EDT Office Visit [facility] [address] [address] Ramo James DPM Diabetic ulcer of toe of right foot associated with type 2 diabetes mellitus, with fat layer exposed (HCC) (Primary Dx); Diabetic ulcer of right heel associated with type 2 diabetes mellitus, with fat layer exposed (HCC); Pressure injury of deep tissue of right foot 08/14/2025 12:45 PM EDT Office Visit [facility] [address] [address] Ramo James DPM Diabetic ulcer of toe of right foot associated with type 2 diabetes mellitus, with fat layer exposed (HCC) (Primary Dx); Pressure injury of deep tissue of right foot; Diabetic ulcer of right heel associated with type 2 diabetes mellitus, with fat layer exposed (HCC) 07/31/2025 2:15 PM EDT Office Visit [facility] [address] [address] Ramo James DPM Diabetic ulcer of toe of right foot associated with type 2 diabetes mellitus, with fat layer exposed (HCC) (Primary Dx); Diabetic ulcer of right heel associated with type 2 diabetes mellitus, with fat layer exposed (HCC); Pressure injury of deep tissue of right foot from Last 3 Months Social History Tobacco Use Types Packs/Day Years [...] Orientation Heterosexual (straight) 04/11 10:17 AM EDT Last Filed Vital Signs Vital Sign Reading Time Taken Comments Blood Pressure 121/57 10/24/2025 10:32 AM EST Pulse 59 10/24/2025 10:32 AM EST Temperature 37 C (98.6 F) 10/16/2025 10:34 AM EST Respiratory Rate 18 10/16/2025 10:34 AM EST Oxygen Saturation 100% 10/24/2025 10:32 AM EST Inhaled Oxygen Concentration - - Weight 93.9 kg (207 lb) 10/24/2025 10:32 AM EST Height 180.3 cm (5' 11 ) 10/24/2025 10:32 AM EST Body Mass Index 28.87 10/24/2025 10:32 AM EST Plan of Treatment Upcoming Encounters Date Type Department Care Team (Late st Contact Info) Description 01/27/2026 11:00 AM EDT Office Visit [facility] Heart & Vascular [facility] [address] [facility] [address] [place] [phone] Felipe Sweeney MD [address] [address] Health Maintenance Due Date Last Done Comments Advance Care Planning 1957 Hepatitis C Virus Screening 1957 Creatinine with GFR 1967 Foot Exam 1967 Lipid Panel 1967 Ophthalmology Exam 1967 DTaP/Tdap/Td Vaccines (1 - Tdap) 1976 Pneumococcal Vaccines 50+ (1 of 2 - PCV) 1976 Colonoscopy 2002 RSV Vaccine 50 years and older and Patients (1 - Risk 50-74 years 1-dose series) 2007 Zoster (Shingles) Vaccine (1 of 2) 2007 Abdominal Aortic Aneurysm (AAA) Screening 2022 Influenza Vaccine 06/06/2025 09/13/2023 COVID-19 Vaccine (1 - 2024- season) 2025 Hemoglobin A1C 09/21/2025 03/21/2025, 03/2 03/2025, 11/01/2024, Additional history exists Microalbumin/Creatinine Ratio Urine Discontinued 10/25/2024, 08/31/2023, 10/12/2022 Hepatitis B Vaccines Aged Out No long er eligible based on patient's age to complete this topic Insurance [facility] MEDICARE MEDICARE PART A & B Care Teams Envelope Sealer Relationship Specialty Start Date End Date Mich Grimes PA [address] [place] [address] PCP - General Adult Health - [place]/APNP/WARPER CREELER/MEDICINE WORKER 03/07/24
--- OUTSIDE RECORDS SUMMARY | 2025-10-24 20:39 | XMS_ITS | Encounter Summary ---
Author Organization [facility] Address [address] [place] [address] Phone Care Team Providers Care Executive Communications Manager Name Role Phone Priya Kyle MD Unavailable [phone] Encounter Details Date Type Department Care Team ([facility] st Contact Info) Description 10/12/2022 Procedure Pass [facility] [address] [facility] [address] [place] [address] Social History Tobacco Use Types Packs/Day Years Used Date Smoking Tobacco: Never Assessed Child or Family Care Answer Date Record ed Do you have problems with on e of the following making it difficult for you to work, study, or receive health care? No 10/06/2022 Education Answer Date Recorded Are you interested in help w ith more adult education (for example, completing high school, GED, job training, learning the [place] language, technical skills, or developing parenting skills)? No 10/06/2022 Are you concerned about learning? Not on file 10/06/2022 No 10/06/2022 Yes 10/06/2022 Food Answer Date Recorded Within the past 6 months we worried whether our food would run out before we got money to buy more. Never True 10/06/2022 Within the past 6 months the food we bought just didn't last and we didn't have enough money to get more. Never True Residential Stability Answer Date Recor ded What is your housing situation today? I have crista sing 10/06/2022 How many times have you move d in the past 12 months? Zero (I did not move) 10/06/2022 Paying for Meds Answer Date Recorded Do you have trouble paying for medicines? No 10/06/2022 Paying Utility Bills Answer Date Record ed Do you have trouble paying your heating or elect ricity bill? No 10/06/2022 Transportation Answer Date Recorded Has the lack of transportati on kept you from medical appointments or from getting medications? No 10/06/2022 Unemployment Answer Date Recorded Are you currently unemployed or working on a part-time or temporary basis, and looking for work? No 10/06/2022 Sex and Gender Information Value Date Recorded Sex Assigned at Not on file Legal Sex Male 3:56 PM EDT Gender Identity Not on file Sexual Orientation Not on file documented as of this encounter Plan of Treatment Not on file documented as of this encounter Visit Diagnoses Not on filedocumented in this encounter Additional Health Concerns Infection Onset Date Last Indicated Resolved Time CoV-Presumed Comment:COVID-19 Added 11/11/2022 11/11/2022 11/11/2022 1:29 P M EST CoV-Risk 11/11/2022 11/11/2022 11/11/2022 1:29 PM EST COVID-19 11/11/2022 11/11/2022 12/02/2022 1:21 AM EST Assessment Noted Time PHQ-2 Depression Total Score: 0 10/17/20 22 1:35 PM EST documented as of this encounter Care Teams Executive Communications Manager Relationship Specialty Start Date End Date Priya Kyle MD [address] [place] [phone] [email or web address] Attributed Provider 11/12/22 03/15/24 documented as of this encounter Additional Source Comments The information contained in this document represents components of the legal health record. It is not the complete legal health record.[facility]
--- OUTSIDE RECORDS SUMMARY | 2025-10-24 20:39 | XMS_ITS | Encounter Summary ---
Author Organization [facility] Address [address] [facility] [address] [place] [address] Phone Care Team Providers Care Manager Home Improvement Name Role Phone Priya Kyle MD Unavailable [phone] Encounter Details Date Type Department Care Team ([facility] st Contact Info) Description 10/12/2022 Procedure Pass [facility] [address] [facility] [address] [place] [address] Social History Tobacco Use Types Packs/Day Years [...] high school, GED, job training, learning the [place] language, technical skills, or developing parenting skills)? [...] documented as of this encounter Care Teams Manager Home Improvement Relationship Specialty Start Date End Date Priya Kyle MD [address] [place] [phone] [email or web address] Attributed Provider 11/12/22 03/15/24 documented as of this encounter Additional Source Comments The information contained in this document represents components of the legal health record. It is not the complete legal health record[facility]
--- OUTSIDE RECORDS SUMMARY | 2025-10-24 20:39 | XMS_ITS | Encounter Summary ---
Author Organization [employer] [facility] Address [facility] [employer] [facility] [address] [place] [address] Phone Care Team Providers Care Supervisor Roving Department Name Role Phone Priya Kyle MD Unavailable [phone] Encounter Details Date Type Department Care Team (Late st Contact Info) Description 01/15/2024 Procedure Pass [facility] MR Imaging, [place] [address] [place] [address] Social History Tobacco Use Types Packs/Day Years Used Date Smoking Tobacco: Every Day Cigarettes 0.3 13 Started: 2012 Smokeless Tobacco: Never Alcohol Use Standard Drinks/Week Comments Yes 1 (1 standard drink = 0.6 oz pur e alcohol) Home Health Assessment: Transportation Answer Date Recorded Lack of Transportation (Medical) No 12/25/2023 Lack of Transportation (Non-Medical) No 12/25/2023 Patient Unable or Declines to Respond No 12/25/2023 Child or Family Care Answer Date Record ed Do you have problems with on e of the following making it difficult for you to work, study, or receive health care? No 06/01/2023 Education Answer Date Recorded Are you interested in help w ith more adult education (for example, completing high school, GED, job training, learning the Armenian language, technical skills, or developing parenting skills)? [...] computer) with a working camera? Yes 06/01/2023 Intimate Partner Violence Answer Date R ecorded Are you denied basic needs s uch as food, clothing, or medical care? Deferred 12/23/2023 In the past 12 months have y ou been in a relationship with a person who hurts, threatens, or tries to control you? Deferred 12/23/2023 Are you denied basic needs s uch as food, clothing, or medical care? Deferred 12/23/2023 In the past 12 months have y ou been in a relationship with a person who hurts, threatens, or tries to control you? Deferred 12/23/2023 Sex and Gender Information Value Date Recorded [...] documented as of this encounter Care Teams Supervisor Roving Department Relationship Specialty Start Date End Date Priya Kyle MD [address] [place] [id number] [email or web address] Attributed Provider 11/12/22 03/15/24 documented as of this encounter Additional Source Comments The information contained in this document represents components of the legal health record. It is not the complete legal health record.[facility]
--- OUTSIDE RECORDS SUMMARY | 2025-10-24 20:39 | XMS_ITS | Encounter Summary ---
Author Organization [facility] Address [address] [place] [address] Care Team Providers Care Motorcycle Riding Instructor Name Role Phone Mich Grimes Primary Care Provider [phone] Encounter Details Date Type Department Care Team (Late st Contact Info) Description 06/16/2025 Orders Only [facility] Department of Internal Medicine 1 [facility],[address] [place] [address] Mich Grimes PA 1 [facility] [address] [place] [address] Social History Tobacco Use Types Packs/Day Years Used Date Smoking Tobacco: Former Cigarettes 0.3 16.1 0 02/27/2009 - 04/06/2025 Smokeless Tobacco: Never Comments:2 cigs per day Alcohol Use Standard Drinks/Week Comments Not Currently 1 (1 standard drink = 0.6 oz pur e alcohol) social [facility] Utilities Answer Date Recorded In the past [...] place to sleep or slept in a penitentiary (including now)? Yes 03/05/2024 Housing Stability Vital Sign Answer Napoleon e Recorded Unable to Pay for Housing in the Last Year Not o n file 01/30/2025 Number of Times Moved in the Last Year Not on fi le 01/30/2025 At any time in the past 12 m [facility], were you homeless or living in a penitentiary (including now)? No 01/30/2025 Sex and Gender [...] suspected to have Coronavirus/COVID-19? No / Unsure 06/10/2025 12:43 PM EDT documented as of this encounter Plan of Treatment Upcoming Encounters Date Type Department Care Team (Late st Contact Info) Description 11/04/2025 2:00 PM EST Office Visit [facility] Department of Cardiology [address] [place] [address] Caryn Cid APRN [address] [facility] [place] [address] 12/09/2025 11:00 AM EST Office Visit [facility] Nephrology [address] [place] [address] Raul Thao MD [address] [place] [address] documented as of this encounter Visit Diagnoses Not on filedocumented in this encounter Care Teams Motorcycle Riding Instructor Relationship Specialty Start Date End Date Mich Grimes PA 1 [facility] [address] [place] [address] PCP - General Internal Medicine 02/28/24 documented as of this encounter
--- OUTSIDE RECORDS SUMMARY | 2025-10-24 20:39 | XMS_ITS | Encounter Summary ---
Author Organization [facility] Address [facility] [employer] [facility] [address] [place] [address] Phone Care Team Providers Care Merchandise Executive Name Role Phone Priya Kyle MD Unavailable [phone] Encounter Details Date Type Department Care Team (Late st Contact Info) Description 09/20/2023 Procedure Pass [facility] [address] [place] [address] Social History Tobacco Use Types Packs/Day Years Used Date Smoking Tobacco: Every Day Cigarettes 0.3 13 Started: 2012 Smokeless Tobacco: Never Alcohol Use Standard Drinks/Week Comments Yes 1 (1 standard drink = 0.6 oz pur e alcohol) Home Health Assessment: Transportation Answer Date Recorded Lack of Transportation (Medical) No 09/14/2023 Lack of Transportation (Non-Medical) No 09/14/2023 Patient Unable or Declines to Respond No 09/14/2023 Child or Family Care Answer Date Record ed Do you have problems with on e of the following making it difficult for you to work, study, or receive health care? No 06/01/2023 Education Answer Date Recorded Are you interested in help w ith more adult education (for example, completing high school, GED, job training, learning the Faroese language, technical skills, or developing parenting skills)? [...] documented as of this encounter Care Teams Merchandise Executive Relationship Specialty Start Date End Date Priya Kyle MD [address] [place] [phone] [email or web address] Attributed Provider 11/12/22 03/15/24 documented as of this encounter Additional Source Comments The information contained in this document represents components of the legal health record. It is not the complete legal health record.[facility]
--- OUTSIDE RECORDS SUMMARY | 2025-10-24 20:39 | XMS_ITS | Encounter Summary ---
Author Organization [employer] [facility] Address [address] [place] [address] Phone Care Team Providers Care Ream Cutter Name Role Phone Priya Kyle MD Unavailable [phone] Encounter Details Date Type Department Care Team ([facility] st Contact Info) Description 10/12/2022 Procedure Pass [facility] [address] [facility] [address] [place] [address] Social History Tobacco Use Types Packs/Day Years [...] high school, GED, job training, learning the Greek language, technical skills, or developing parenting skills)? [...] documented as of this encounter Care Teams Ream Cutter Relationship Specialty Start Date End Date Priya Kyle MD [address] [place] [phone] [email or web address] Attributed Provider 11/12/22 03/15/24 documented as of this encounter Additional Source Comments The information contained in this document represents components of the legal health record. It is not the complete legal health record.[facility]
--- OUTSIDE RECORDS SUMMARY | 2025-10-24 20:39 | XMS_ITS | Encounter Summary ---
Author Organization [facility] Address [facility] [employer] [facility] [address] [address] Phone Care Team Providers Care Library Serials Assistant Name Role Phone Priya Kyle MD Unavailable [phone] Reason for Referral * MRI/CAT Scan - Closed Specialty Diagnoses / Procedures Referred By Cortney reed Referred To Contact Radiology Diagnoses Arterial insufficiency with ischemic ulcer Procedures CTA 3D Reconstruction Lower Extremity Runoff Raul Taveras MD, PhD Phone: tel: fax: mailto:[email or web address] Referral ID Status Reason Start Date Expiration Date Visits Re quested Visits Authorized [id number] Closed 02/24/2024 08/22/2024 1 1 Encounter Details Date Type Department Care Team (Latest Contact Info) Description 02/26/2024 Ancillary Orders [facility] [address] [place] [address] Raul Taveras MD, PhD [address] [place], [place] [id number] [email or web address] Arterial insufficiency with ischemic ulcer (Primary Dx) Social History Tobacco Use Types Packs/Day Years Used Date Smoking Tobacco: Every Day Cigarettes 0.3 13 Started: 2013 Smokeless Tobacco: Never Alcohol Use Standard Drinks/Week Comments Yes 1 (1 standard drink = 0.6 oz pur e alcohol) Home Health Assessment: Transportation Answer Date Recorded Lack of Transportation (Medical) No 01/24/2024 Lack of Transportation (Non-Medical) No 01/24/2024 Patient Unable or Declines to Respond No 01/24/2024 Child or Family Care Answer Date Record ed Do you have problems with on e of the following making it difficult for you to work, study, or receive health care? No 06/01/2023 Education Answer Date Recorded Are you interested in help w ith more adult education (for example, completing high school, GED, job training, learning the French language, technical skills, or developing parenting skills)? [...] housing situation today? I have crista sing 06/01/2023 How many times have you move [...] on file documented as of this encounter Results * CTA 3D Reconstruction Lower Extremity Runoff (02/24/2024 3:22 PM EDT) Anatomical Region Laterality Modality Abdomen, Hip Left, Hip Right , Hip Bilateral, Thigh Left, Thigh Right, Knee Left, Knee Right, Knee Bilateral, Leg Left, Leg Right, Leg Bilateral, Ankle Left, Ankle Right, Ankle Bilateral, Foot Left, Foot Right, Foot Bilateral Computed Tomography 02/26/2024 12:2 5 PM EDT Impressions 02/26/2024 12:50 PM EDT * Aortoiliac: Moderate aortoiliac atherosclerotic disease. * Right lower extremity: 3-vessel runoff. Occluded right popliteal artery with distal reconstitution of the tibial and peroneal arteries. Severe peroneal artery stenosis. Occluded dorsalis pedis distally. * Left lower extremity: 3-vessel runoff. Occluded popliteal artery with opacification of the tibial and peroneal arteries via retrograde flow from the femoral to tibial graft which has a severe stenosis distally. Occluded dorsalis pedis distally. Narrative 02/26/2024 12:[address] ANGIO ABDOMINAL AORTA AND BILATERAL LOWER EXTREMITY RUNOFF WITH AND WITHOUT CONTRAST, CT ANGIO 3DRECON LOWER EXTREMITY RUNOFF TECHNIQUE: CTA Abdomen, Pelvis and Bilateral Lower Extremity Runoff Scans: Noncontrast; Angiogram; Delay(immediate)-Bilateral Lower Extremity from knee down Oral contrast: None. IVCM: Administered 3D Post-processinD Volume-rendering COMPARISON: MRI ANGIO FEMORAL RUNOFF WITH AND WITHOUT CONTRAST FINDINGS: VASCULAR: ARTERIES: Aorta: Moderate aortoiliac atherosclerotic disease. No aortic rupture, aneurysm, dissection, intramural hematoma, wall thickening or perivascular inflammation. Celiac axis: Patent Superior mesenteric artery: Patent Right renal artery: Mild stenosis. Left renal artery: Mild stenosis. Inferior mesenteric artery: Patent Right common iliac artery: Normal Right internal iliac artery: Normal Right external iliac artery: Normal Right common femoral artery: moderate stenosis Right superficial femoral artery: moderate stenosis Right profunda femoris artery: Normal Right eoeig-zdp-ihat popliteal artery: occluded Right lsyem-lxg-ukpz popliteal artery: occluded Right anterior tibial artery: multifocal mild stenosis of the distal segment. Right tibioperoneal artery: Normal Right peroneal artery: Severe multifocal stenosis Right posterior tibial artery: multifocal mild stenosis of the distal segment. Right dorsalis artery: occluded distal branches Right plantar arteries and plantar arch: mild stenosis Left common iliac artery: Normal Left internal iliac artery: Normal Left external iliac artery: Normal Left common femoral artery: Normal Patent superficial femoral to posterior tibial artery graft. Left superficial femoral artery: Normal Left profunda femoris artery: Normal Left xsymk-xom-nxml popliteal artery: occluded Left exxdq-yic-vpnx popliteal artery: Occluded with opacification of the tibial and peroneal arteries via retrograde flow from the femoral to tibial graft. Severe stenosis of the bypass graft distally. Left anterior tibial artery: Mild stenosis of the distal anterior tibial artery. Left tibioperoneal artery: Normal Left peroneal artery: Normal Left posterior tibial artery: Normal Left dorsalis artery: Occluded distally Left plantar arteries and plantar arch: Normal NONVASCULAR: Devices/Tubes/Lines: None. Lower Chest: Normal. Clear lung bases, normal heart size, and no effusions. Liver: Small simple cyst in the dome not clearly seen without delayed contrast. Biliary: Normal. No biliary ductal dilatation. Spleen: Normal. No splenomegaly. Pancreas: Normal. No ductal dilatation, peripancreatic fluid, or stranding. Adrenal Glands: Normal. No nodules. Kidneys/Ureters: Nonenhancing round subcentimeter lesion in the interpolar region of the left kidney most likely simple cyst. No stones or hydronephrosis. Bowel: Normal. No distention or wall thickening. Peritoneum/Retroperitoneum: Normal. No masses, pneumoperitoneum, or fluid. Lymph Nodes: Normal, no lymphadenopathy. Pelvic Organs/Bladder: Normal. No mass. Bones/Soft tissues: Degenerative changes of the spine. No suspicious lytic or blastic lesions. Left toe amputations. Procedure Note Elkin Navas MD - 02/26/2024 CT ANGIO ABDOMINAL AORTA AND BILATERAL LOWER EXTREMITY RUNOFF WITH ANDWITHOUT CONTRAST, CT ANGIO 3DRECON LOWER EXTREMITY RUNOFF TECHNIQUE: CTA Abdomen, Pelvis and Bilateral Lower Extremity Runoff Scans: Noncontrast; Angiogram; Delay(immediate)-Bilateral Lower Extremityfrom knee down Oral contrast: None. IVCM: Administered 3D Post-processinD Volume-rendering COMPARISON: MRI ANGIO FEMORAL RUNOFF WITH AND WITHOUT [id number] FINDINGS: VASCULAR: ARTERIES: Aorta: Moderate aortoiliac atherosclerotic disease. No aortic rupture,aneurysm, dissection, intramural hematoma, wall thickening or perivascularinflammation. Celiac axis: Patent Superior mesenteric artery: Patent Right renal artery: Mild stenosis. Left renal artery: Mild stenosis. Inferior mesenteric artery: Patent Right common iliac artery: Normal Right internal iliac artery: Normal Right external iliac artery: Normal Right common femoral artery: moderate stenosis Right superficial femoral artery: moderate stenosis Right profunda femoris artery: Normal Right mcuic-atm-buiq popliteal artery: occluded Right ojeld-jmv-nbwt popliteal artery: occluded Right anterior tibial artery: multifocal mild stenosis of the distalsegment. Right tibioperoneal artery: Normal Right peroneal artery: Severe multifocal stenosis Right posterior tibial artery: multifocal mild stenosis of the distalsegment. Right dorsalis artery: occluded distal branches Right plantar arteries and plantar arch: mild stenosis Left common iliac artery: Normal Left internal iliac artery: Normal Left external iliac artery: Normal Left common femoral artery: Normal Patent superficial femoral to posteriortibial artery graft. Left superficial femoral artery: Normal Left profunda femoris artery: Normal Left tcbon-uud-lnxn popliteal artery: occluded Left lywwc-ord-wbfv popliteal artery: Occluded with opacification of thetibial and peroneal arteries via retrograde flow from the femoral totibial graft. Severe stenosis of the bypass graft distally. Left anterior tibial artery: Mild stenosis of the distal anterior tibialartery. Left tibioperoneal artery: Normal Left peroneal artery: Normal Left posterior tibial artery: Normal Left dorsalis artery: Occluded distally Left plantar arteries and plantar arch: Normal NONVASCULAR: Devices/Tubes/Lines: None. Lower Chest: Normal. Clear lung bases, normal heart size, and noeffusions. Liver: Small simple cyst in the dome not clearly seen without delayedcontrast. Biliary: Normal. No biliary ductal dilatation. Spleen: Normal. No splenomegaly. Pancreas: Normal. No ductal dilatation, peripancreatic fluid, orstranding. Adrenal Glands: Normal. No nodules. Kidneys/Ureters: Nonenhancing round subcentimeter lesion in the interpolarregion of the left kidney most likely simple cyst. No stones orhydronephrosis. Bowel: Normal. No distention or wall thickening. Peritoneum/Retroperitoneum: Normal. No masses, pneumoperitoneum, orfluid. Lymph Nodes: Normal, no lymphadenopathy. Pelvic Organs/Bladder: Normal. No mass. Bones/Soft tissues: Degenerative changes of the spine. No suspicious lyticor blastic lesions. Left toe amputations. IMPRESSION: * Aortoiliac: Moderate aortoiliac atherosclerotic disease. * Right lower extremity: 3-vessel runoff. Occluded right popliteal arterywith distal reconstitution of the tibial and peroneal arteries. Severeperoneal artery stenosis. Occluded dorsalis pedis distally. * Left lower extremity: 3-vessel runoff. Occluded popliteal artery withopacification of the tibial and peroneal arteries via retrograde flow fromthe femoral to tibial graft which has a severe stenosis distally. Occludeddorsalis pedis distally. Raul Taveras MD, PhD IMG CT Fin al Result documented in this encounter Visit Diagnoses Diagnosis Arterial insufficiency with ischemic ulcer Arterial insufficiency with ischemic ulcer- Primary documented in this encounter Additional Health Concerns Assessment Noted Time PHQ-2 Depression Total Score: 0 10/17/20 22 1:35 PM EST documented as of this encounter Care Teams Library Serials Assistant Relationship Specialty Start Date End Date Priya Kyle MD [address] [place] [id number] [email or web address] Attributed Provider 11/12/22 03/15/24 documented as of this encounter Additional Source Comments The information contained in this document represents components of the legal health record. It is not the complete legal health record.[facility]
--- OUTSIDE RECORDS SUMMARY | 2025-10-24 20:39 | XMS_ITS | Encounter Summary ---
Author Organization [facility] Address [address] [place] [address] Care Team Providers Care Policy Loan Calculator Name Role Phone Mich Grimes Primary Care Provider [phone] Encounter Details Date Type Department Care Team (Late st Contact Info) Description 04/21/2025 Orders Only [facility] Department of Internal Medicine 1 [facility],[address] [place] [address] Mich Grimes PA 1 [facility] [address] [place] [address] Social History Tobacco Use Types Packs/Day Years Used Date Smoking Tobacco: Every Day Cigarettes 0.3 16.7 Started: 02/27/2009 Smokeless Tobacco: Never Comments:2 cigs per day Alcohol Use Standard Drinks/Week Comments Yes 1 (1 standard drink = 0.6 oz pur e alcohol) social [facility] Utilities Answer Date Recorded In the past 12 months has [facility] [employer], gas, oil, or water [employer] threatened to shut off services in your [...] place to sleep or slept in a prison (including now)? Yes 03/05/2024 Housing Stability Vital Sign Answer Napoleon e Recorded Unable to Pay for Housing in the Last Year Not o n file 01/30/2025 Number of Times Moved in the Last Year Not on fi le 01/30/2025 At any time in the past 12 m [facility], were you homeless or living in a prison (including now)? No 01/30/2025 Sex and Gender [...] suspected to have Coronavirus/COVID-19? No / Unsure 04/23/2025 9:47 AM EDT documented as of this encounter Plan of Treatment Upcoming Encounters Date Type Department Care Team (Late st Contact Info) Description 11/04/2025 2:00 PM EST Office Visit [facility] Department of Cardiology [address] [place] [address] Caryn Cid APRN [address] [facility] [place] [address] 12/09/2025 11:00 AM EST Office Visit [facility] of Nephrology [address] [place] [address] Raul Thao MD [address] [place], [place] [id number] documented as of this encounter Visit Diagnoses Not on filedocumented in this encounter Care Teams Policy Loan Calculator Relationship Specialty Start Date End Date Mich Grimes PA [address] [place] [address] PCP - General Internal Medicine 02/28/24 documented as of this encounter
--- OUTSIDE RECORDS SUMMARY | 2025-10-24 20:39 | XMS_ITS | Encounter Summary ---
Author Organization [facility], [facility]1983 Address [address] [place] [address] Care Team Providers Care Importer Or Exporter Name Role Phone Mich Grimes Primary Care Provider Encounter Details Date Type Department Care Team (Late st Contact Info) Description 06/19/2024 Orders Only [facility] Department of Family Medicine [address] [place] [id number] Mich Grimes PA 1 [facility] [address] [place], [place] [id number] Social History Tobacco Use Types Packs/Day Years Used Date Smoking Tobacco: Every Day Cigarettes 0.3 16.7 Started: 02/27/2009 Smokeless Tobacco: Never Comments:2 cigs per day Alcohol Use Standard Drinks/Week Comments Yes 1 (1 standard drink = 0.6 oz pur e alcohol) social [facility] Utilities Answer Date Recorded In the past 12 months has e [employer], gas, oil, or water [employer] threatened to shut off services in your home? No 03/05/2024 Humiliation, Afraid, Rape, and Kick questionnair e Answer Date Recorded Within the last year, have y ou been afraid of your partner or ex-partner? No 03/05/2024 Within the last year, have y ou been humiliated or emotionally abused in other ways by your partner or ex-partner? No Within the last year, have y ou been kicked, hit, slapped, or otherwise physically hurt by your partner or ex-partner? No 03/05/2024 Within the last year, have y ou been raped or forced to have any kind of sexual activity by your partner or ex-partner? No 03/05/2024 Overall Financial Resource Strain (CARDIA) Answe r Date Recorded How hard is it for you to pa y for the very basics like food, housing, medical care, and heating? Not hard at all 03/05/2024 PHQ-2 Answer Date Recorded PHQ-2 Score 0 02/28/2024 Hunger Vital Sign Answer Date Recorded Within the past 12 months, y ou worried that your food would run out before you got the money to buy more. Never true 03/05/20 Within the past 12 months, t he food you bought just didn't last and you didn't have money to get more. Never true 03/05/2024 PRAPARE - Transportation Answer Date Re corded In the past 12 months, has l ack of transportation kept you from medical appointments or from getting medications? Yes 03/05/2024 Lack of Transportation (Non-Medical) Not on file 03/05/2024 Housing Stability Vital Sign Answer Napoleon e Recorded Unable to Pay for Housing in the Last Year Not o n file 03/05/2024 Number of Places Lived in the Last Year Not on f ile 03/05/2024 In the last 12 months, was t here a time when you did not have a steady place to sleep or slept in a long-term (including now)? Yes 03/05/2024 Sex and Gender Information Value Date Recorded [...] suspected to have Coronavirus/COVID-19? No / Unsure 05/29/2024 11:09 AM EDT documented as of this encounter Plan of Treatment Upcoming Encounters Date Type Department Care Team (Late st Contact Info) Description 11/04/2025 2:00 PM EST Office Visit [facility] Department of Cardiology [address] [place] [address] Caryn Cid APRN [address] [facility] [place] [address] 12/09/2025 11:00 AM EST Office Visit [facility] Department of Nephrology [address] [place] [address] Raul Thao MD [address] [place] [address] documented as of this encounter Visit Diagnoses Not on filedocumented in this encounter Additional Health Concerns Infection Onset Date Last Indicated Resolved Time (Rule out) C. difficile 10/25/2024 10/25/202410/07 12:31 PM EST (Rule out) Enterovirus 10/25/2024 10/25/202410/26 12:31 PM EST (Rule out) Influenza 11/03/2024 11/03/2024 024 12:52 PM EST (Rule out) RSV 11/03/2024 11/03/2024 11/03/2024 12 :52 PM EST (Rule out) COVID-19 11/03/2024 11/03/2024 11/03/20 12:52 PM EST documented as of this encounter Care Teams Importer Or Exporter Relationship Specialty Start Date End Date Mich Grimes PA 1 [facility] [address] [place] [address] PCP - General Internal Medicine 02/28/24 documented as of this encounter
--- OUTSIDE RECORDS SUMMARY | 2025-10-24 20:39 | XMS_ITS | Encounter Summary ---
Author Organization [facility] Address [facility] [employer] [facility] [address] [place] [address] Phone Care Team Providers Care Buttermaker Helper Name Role Phone Priya Kyle MD Unavailable [phone] Encounter Details Date Type Department Care Team (Late st Contact Info) Description 01/15/2024 Procedure Pass [facility] MR Imaging, [place] [address] [place] [address] Social History Tobacco Use Types Packs/Day Years [...] high school, GED, job training, learning the Angolan language, technical skills, or developing parenting skills)? [...] documented as of this encounter Care Teams Buttermaker Helper Relationship Specialty Start Date End Date Priya Kyle MD [address] [place] [phone] [email or web address] Attributed Provider 11/12/22 03/15/24 documented as of this encounter Additional Source Comments The information contained in this document represents components of the legal health record. It is not the complete legal health record.[facility]
--- OUTSIDE RECORDS SUMMARY | 2025-10-24 20:39 | XMS_ITS | Encounter Summary ---
Author Organization [employer] [facility] Address [address] [place] [address] Phone Care Team Providers Care Investigative Assistant Name Role Phone Priya Kyle MD Unavailable [phone] Encounter Details Date Type Department Care Team (Late st Contact Info) Description 02/26/2024 Procedure Pass [facility] [address] [place] [address] Social History Tobacco Use Types Packs/Day Years [...] high school, GED, job training, learning the Icelandic language, technical skills, or developing parenting skills)? [...] documented as of this encounter Care Teams Investigative Assistant Relationship Specialty Start Date End Date Priya Kyle MD [address] [place] [phone] [email or web address] Attributed Provider 11/12/22 03/15/24 documented as of this encounter Additional Source Comments The information contained in this document represents components of the legal health record. It is not the complete legal health record.[facility]
--- OUTSIDE RECORDS SUMMARY | 2025-10-24 20:39 | XMS_ITS | Encounter Summary ---
Author Organization [facility] Address [address] [place] [address] Phone Care Team Providers Care Tight Cooper Name Role Phone Priya Kyle MD Unavailable [phone] Encounter Details Date Type Department Care Team (Late st Contact Info) Description 11/11/2022 Procedure [facility] Emergency Department, [facility] [address] [place] [address] Social History Tobacco Use Types Packs/Day Years [...] high school, GED, job training, learning the Albanian language, technical skills, or developing parenting skills)? [...] documented as of this encounter Care Teams Tight Cooper Relationship Specialty Start Date End Date Priya Kyle MD [address] [place] [phone] [email or web address] Attributed Provider 11/12/22 03/15/24 documented as of this encounter Additional Source Comments The information contained in this document represents components of the legal health record. It is not the complete legal health record.[facility]
--- OUTSIDE RECORDS SUMMARY | 2025-10-24 20:39 | XMS_ITS | Encounter Summary ---
Author Organization [employer] [facility] Address [address] [place] [address] Phone Care Team Providers Care Track Welder Name Role Phone Priya Kyle MD Unavailable [phone] Encounter Details Date Type Department Care Team (Late st Contact Info) Description 02/10/2024 Procedure Pass [facility] [address] [place] [address] Social History Tobacco Use Types Packs/Day Years [...] high school, GED, job training, learning the Romanian language, technical skills, or developing parenting skills)? [...] documented as of this encounter Care Teams Track Welder Relationship Specialty Start Date End Date Priya Kyle MD [address] [place] [phone] [email or web address] Attributed Provider 11/12/22 03/15/24 documented as of this encounter Additional Source Comments The information contained in this document represents components of the legal health record. It is not the complete legal health record.[facility]
--- OUTSIDE RECORDS SUMMARY | 2025-10-24 20:39 | XMS_ITS | Encounter Summary ---
Author Organization [facility] Address [address] [place] [address] Care Team Providers Care Senior Center Manager Name Role Phone Mich Grimes Primary Care Provider [phone] Encounter Details Date Type Department Care Team (Late st Contact Info) Description 05/30/2025 Orders Only [facility] Department of Family Medicine [address] [place] [phone] Mich Grimes PA 1 [facility] [address] [place], [place] [id number] Social History Tobacco Use Types Packs/Day Years Used Date Smoking Tobacco: Former Cigarettes 0.3 16.1 0 02/27/2009 - 04/06/2025 Smokeless Tobacco: Never Comments:2 cigs per day Alcohol Use Standard Drinks/Week Comments Not Currently 1 (1 standard drink = 0.6 oz pur e alcohol) social [facility] Utilities Answer Date Recorded In the past 12 months has e electric, gas, oil, or water [employer] threatened to shut off services in your [...] any time in the past 12 m [facility], were you homeless or living in a prison (including now)? No 01/30/2025 Sex and Gender Information Value Date Recorded Sex Assigned at Male 02/28/2024 7:53 AM EDT Legal Sex Male 8:28 AM EDT Gender Identity Male 02/28/2024 7:53 AM EDT Sexual Orientation Straight 02/28/2024 7: 53 AM EDT documented as of this encounter Plan of Treatment Upcoming Encounters Date Type Department Care Team (Late st Contact Info) Description 11/04/2025 2:00 PM EST Office Visit [facility] Department of Cardiology [address] [place] [address] Caryn Cid APRN [address] [facility] [place] [address] 12/09/2025 11:00 AM EST Office Visit [facility] Department of Nephrology [address] [place] [address] Raul Thao MD [address] [place], [place] [phone] documented as of this encounter Visit Diagnoses Not on filedocumented in this encounter Care Teams Senior Center Manager Relationship Specialty Start Date End Date Mich Grimes PA 1 [facility] [address] [place] [address] PCP - General Internal Medicine 02/28/24 documented as of this encounter
--- OUTSIDE RECORDS SUMMARY | 2025-10-24 20:39 | XMS_ITS | Encounter Summary ---
Author Organization [facility] Address [facility], [place]) [address] [place] [address] Phone Care Team Providers Care Finance Clerk Name Role Phone Priya Kyle MD Unavailable [phone] Encounter Details Date Type Department Care Team (Late st Contact Info) Description 09/08/2023 Procedure Pass [facility] Periop [address] [place] [address] Social History Tobacco Use Types Packs/Day Years [...] high school, GED, job training, learning the Persian language, technical skills, or developing parenting skills)? [...] documented as of this encounter Care Teams Finance Clerk Relationship Specialty Start Date End Date Priya Kyle MD [address] [place] [phone] [email or web address] Attributed Provider 11/12/22 03/15/24 documented as of this encounter Additional Source Comments The information contained in this document represents components of the legal health record. It is not the complete legal health record.[facility]
--- OUTSIDE RECORDS SUMMARY | 2025-10-24 20:39 | XMS_ITS | Encounter Summary ---
Author Organization [facility] Address [address] [place] [address] Care Team Providers Care Rug Measurer Name Role Phone Mich Grimes Primary Care Provider [phone] Encounter Details Date Type Department Care Team (Late st Contact Info) Description 01/10/2025 Orders Only [facility] Department of Internal Medicine 1 [facility] [place] [address] Mich Grimes PA 1 [facility] [address] [place] [address] Social History Tobacco Use Types Packs/Day Years Used Date Smoking Tobacco: Every Day Cigarettes 0.3 16.7 Started: 02/27/2009 Smokeless Tobacco: Never Comments:2 cigs per day Alcohol Use Standard Drinks/Week Comments Yes 1 (1 standard drink = 0.6 oz pur e alcohol) social [facility] Utilities Answer Date Recorded In the past 12 months has [facility] [employer], gas, oil, or water [employer] threatened to shut off services in your [...] the money to buy more. Never true 10/25/20 Within the past 12 months, t he food you bought just didn't last and you didn't have money to get more. Never true 10/25/2024 PRAPARE - Transportation Answer Date Re corded [...] place to sleep or slept in a group home (including now)? Yes 03/05/2024 Sex and Gender [...] suspected to have Coronavirus/COVID-19? No / Unsure 01/09/2025 1:28 PM EST documented as of this encounter Plan of Treatment Upcoming Encounters Date Type Department Care Team (Late st Contact Info) Description 11/04/2025 2:00 PM EST Office Visit [facility] Department of Cardiology [address] [place] [address] Caryn Cid APRN 263 [facility] [place] [address] 12/09/2025 11:00 AM EST Office Visit [facility] Department of Nephrology [address] [place] [address] Raul Thao MD [address] [place] [address] documented as of this encounter Visit Diagnoses Not on filedocumented in this encounter Care Teams Rug Measurer Relationship Specialty Start Date End Date Mihc Grimes PA 1 [facility] [address] [place] [address] PCP - General Internal Medicine 02/28/24 documented as of this encounter
--- OUTSIDE RECORDS SUMMARY | 2025-10-24 20:39 | XMS_ITS | Encounter Summary ---
Author Organization [facility] Address [address] [employer] [facility] [address] [place] [address] Phone Care Team Providers Care Junior High School Principal Name Role Phone Priya Kyle MD Unavailable [phone] Encounter Details Date Type Department Care Team (Late st Contact Info) Description 09/24/2023 Procedure Pass [facility] [address] [place] [address] Social History Tobacco Use Types Packs/Day Years Used Date Smoking Tobacco: Every Day Cigarettes 0.3 13 Started: 2012 Smokeless Tobacco: Never Alcohol Use Standard Drinks/Week Comments Yes 1 (1 standard drink = 0.6 oz pur e alcohol) Home Health Assessment: Transportation Answer Date Recorded Lack of Transportation (Medical) No 09/27/2023 Lack of Transportation (Non-Medical) No 09/27/2023 Patient Unable or Declines to Respond No 09/27/2023 Child or Family Care Answer Date Record ed Do you have problems with on e of the following making it difficult for you to work, study, or receive health care? No 06/01/2023 Education Answer Date Recorded Are you interested in help w ith more adult education (for example, completing high school, GED, job training, learning the Occitan language, technical skills, or developing parenting skills)? [...] documented as of this encounter Care Teams Junior High School Principal Relationship Specialty Start Date End Date Priya Kyle MD [address] [place] [phone] [email or web address] Attributed Provider 11/12/22 03/15/24 documented as of this encounter Additional Source Comments The information contained in this document represents components of the legal health record. It is not the complete legal health record.[facility]
--- OUTSIDE RECORDS SUMMARY | 2025-10-24 20:39 | XMS_ITS | Encounter Summary ---
Author Organization [employer] [facility] Address [address] [place] [address] Phone Care Team Providers Care Tobacco Farmworker Name Role Phone Priya Kyle MD Unavailable [phone] Encounter Details Date Type Department Care Team ([facility] st Contact Info) Description 10/12/2022 Procedure Pass [facility] [address] [facility] [address] [place] [address] Social History Tobacco Use Types Packs/Day Years [...] high school, GED, job training, learning the Kazakh language, technical skills, or developing parenting skills)? [...] documented as of this encounter Care Teams Tobacco Farmworker Relationship Specialty Start Date End Date Priya Kyle MD [address] [place] [phone] [email or web address] Attributed Provider 11/12/22 03/15/24 documented as of this encounter Additional Source Comments The information contained in this document represents components of the legal health record. It is not the complete legal health record.[facility]
--- OUTSIDE RECORDS SUMMARY | 2025-10-24 20:39 | XMS_ITS | Encounter Summary ---
Author Organization [facility] Address [address] [place] [address] [place] [address] Phone Care Team Providers Care Rn Mds Name Role Phone Unavailable Primary Care Provider Unavailabl e Encounter Details Date Type Department Care Team (Late st Contact Info) Description 03/18/2024 Procedure Pass [facility] [address] [place] [address] Social History Tobacco Use Types Packs/Day Years [...] high school, GED, job training, learning the Yemeni language, technical skills, or developing parenting skills)? [...] PM EST documented as of this encounter Additional Source Comments The information contained in this document represents components of the legal health record. It is not the complete legal health record.[facility]
--- OUTSIDE RECORDS SUMMARY | 2025-10-24 20:39 | XMS_ITS | Clinical Summary ---
Author Organization [facility] Address [address] [place] [address] Phone Care Team Providers Care Pediatric Physician Assistant Name Role Phone Unavailable Primary Care Provider Unavailabl e Allergies Active Allergy Reactions Criticality Noted Date Comments Morphine Mental Status Change,Anxiety Low 023 Medications aspirin 81 MG EC tablet Take 1 tablet (81 mg total) by mouth daily. 90 tablet 3 2 Active blood sugar diagnostic Strp strips 1 each by Miscellaneous route 2 (two) times a day. 100 strip 3 3 Active metFORMIN (GLUCOPHAGE) 500 MG tablet Take 2 tablets (1,000 mg total) by mouth 2 (two) times a day with meals. 360 tablet 3 3 Active blood-glucose meter (GLUCOCARD 01 METER) kit 1 EA, [facility], ONCE, Glucometer X1, # 1 kit(s), 0 Refill(s), Pharmacy: [id number], [facility] ONCE,Instr:Glucom eter X1, Supply 3 Active famotidine (PEPCID) 40 MG tablet Take 1 tablet (40 mg total) by mouth daily. 20 tablet 3 Active Additional Information Patient taking differently:40 mg OralAs needed, heartburn, upset stomach, Reported on 12/21/2023 rosuvastatin (CRESTOR) 40 MG tablet TAKE 1 TABLET BY MOUTH DAILY 90 tablet 3 3 Active acetaminophen (TYLENOL) 325 mg tablet Take 2 tablets (650 mg total) by mouth every 6 (six) hours. 0 4 Active rivaroxaban (XARELTO) 20 mg Tab Take 1 tablet (20 mg total) by mouth daily with dinner. 30 tablet 1 4 Active gabapentin (NEURONTIN) 300 MG capsule Take 1 capsule (300 mg total) by mouth 3 (three) times a day. 270 capsule 3 4 Active oxyCODONE 5 MG immediate release tablet Take 1-2 tablets (5-10 mg total) by mouth every 6 (six) hours as needed. Partial fill ok 120 tablet 4 Active empagliflozin (JARDIANCE) 25 mg tablet Take 1 tablet (25 mg total) by mouth every morning. 90 tablet 3 4 Active valsartan (DIOVAN) 80 MG tablet take 1 tablet every day 90 tablet 3 4 Active zolpidem (AMBIEN) 10 mg tablet Take 1 tablet (10 mg total) by mouth nightly at bedtime as needed. 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 12/21/2023 Amputation of foot 10/09/2023 Depressive disorder 10/09/2023 Abscess 09/19/2023 Cellulitis 09/06/2023 History of acute inferior wall NC 09/01/2023 09/01/2023 Primary hypertension 08/21/2023 Peripheral vascular disease 06/22/2023 Type 2 diabetes mellitus wit h diabetic neuropathy, with long-term current use of insulin 06/06/2023 Ischemic cardiomyopathy 05/15/2023 09/01/20 23 S/P CABG (coronary artery bypass graft) 05/15/20 23 09/01/2023 Cellulitis of left foot 05/10/2023 09/01/20 Diabetic infection of left foot 05/10/2023 09/01/2023 Chronic heart failure with preserved ejection fr action 12/09/2022 Diabetic peripheral neuropathy 12/09/2022 Calculus of gallbladder with out cholecystitis without obstruction 10/17/2022 Dyslipidemia 10/17/2022 Coronary artery disease invo lving coronary bypass graft of [place] heart without angina pectoris 10/12/2022 Resolved Problems Problem Noted Date Diagnosed Date Resolved Date Sepsis 05/10/2023 09/01/2023 09/01/2023 HFrEF (heart failure with re duced ejection fraction) 10/17/2022 12/09/2022 Encounters Date Type Department Care Team Description 08/12/2025 Telephone [facility] [address] [facility] [place] [address] Aicha Monroy Appointment from Last 3 Months Immunizations Immunization Administration Dates Next Due Influenza High-Dose Quadrivalent Preservative Fr ee IM 09/13/2023 Family History Medical History Relation Comments Diabetes Father Heart attack Father Heart failure Father Dementia Mother Relation Status Comments Father Mother Social History Tobacco Use Types Packs/Day Years Used Date Smoking Tobacco: Every Day Cigarettes 0.3 13 Started: 2012 Smokeless Tobacco: Never Tobacco Cessation:Ready to Q uit: Not Asked; Counseling Given: Not Answered Alcohol Use Standard Drinks/Week Comments Yes 1 [...] Answer Date Recorded Are you interested in more education? Not on ernie e 06/04/2025 Are you concerned about learning? Not on file 06/04/2025 No 06/04/2025 No 06/04/2025 Food Answer Date Recorded Within the past [...] 10/06/2022 Digital Access Answer Date Recorded No 06/04/2025 No 06/04/2025 Reliable internet access at home? Not on file 06/04/2025 Device with a working camera? Not on file Intimate Partner Violence Answer Date R ecorded [...] on file Sexual Orientation Not on file Last Filed Vital Signs Vital Sign Reading Time Taken Comments Blood Pressure 120/80 02/09/2024 9:12 AM EDT Pulse 82 02/09/2024 9:12 AM EDT Temperature 35.8 C (96.4 F) 01/24/2024 11:09 AM EDT Respiratory Rate 16 01/24/2024 11:09 AM EDT Oxygen Saturation 98% 02/09/2024 9:12 AM EDT Inhaled Oxygen Concentration - - Weight 85.3 kg (188 lb) 02/24/2024 2:51 PM EDT Height 180.3 cm (5' 11 ) 12/25/2023 10:44 AM EST Body Mass Index 26.22 12/25/2023 10:44 AM EST Plan of Treatment Health Maintenance Due Date Last Done Comments Adult Td,Tdap Booster 1957 SMOKING Hx and SMOKELESS TOBACCO SCREENING 1970 PNEUMOCOCCAL VACCINES (50+ years) (1 of 2 - PCV) 1976 COLOGUARD 2002 COLONOSCOPY 2002 COLORECTAL CANCER SCREENING 2002 FIT TEST 2002 FOBT 2002 SIGMOIDOSCOPY 2002 VIRTUAL COLONOSCOPY 2002 RSV VACCINE (1 - Risk 50-74 years 1-dose series) 2007 ZOSTER VACCINES (1 of 2) 2007 DIABETIC EYE EXAM 10/12/2022 DEPRESSION SCREENING 10/17/2023 10/17/2022 HEMOGLOBIN A1C 06/21/2024 12/22/2023, 08/08, 06/02/2023, Additional history exists BLOOD PRESSURE 08/10/2024 02/09/2024 CREATININE LEVEL 12/24/2024 12/24/2023, , 12/22/2023, Additional history exists POTASSIUM LEVEL 12/24/2024 12/24/2023, 12/07, 12/22/2023, Additional history exists INFLUENZA VACCINE (#1) 2025 09/13/2023, 2021 COVID-19 VACCINE ( season) 2025 09/09/2022, 11/19/2021, 01/29/2021, Additional history exists HEPATITIS C SCREENING Completed 10/12/2022 ABDOMINAL AORTIC ANEURYSM (AAA) SCREENING Completed 02/24/2024, 01/29/2024, 07/07/2023, Additional history exists HEPATITIS A VACCINES Aged Out No long er eligible based on patient's age to complete this topic HIB VACCINES Aged Out No longer eligi ble based on patient's age to complete this topic MENINGOCOCCAL VACCINES (ACWY) Aged Out No longer eligible based on patient's age to complete this topic MENINGOCOCCAL VACCINES (B) Aged Out N o longer eligible based on patient's age to complete this topic Goals Goal Patient Goal Type Associated Problems Recent Progress Patient-Stated? Author Autogenerat ed Goal Care Plan Autogenerated Problem No Rosanne [employer] Implanted Type Area Flute Polisher Device Identifier Shelf Expiration Date Model / Serial / Lot Device Closure 6fr .035in Vascular Angio-Seal Vip Collagen Bioabsorbable Intraarterial Suture Tether Bx/10ea - [id number] Implanted:Qty: 1 on 07/21/2023 by Adrian Lazcano MD at [facility] 02/04/2024 [id number] / / [id number] Procedures Procedure Name Priority Date/Time Associated Diagnosis Comments CT ANGIO ABDOMINAL AORTA AND BILATERAL LOWER EXTREMITY RUNOFF WITH AND WITHOUT CONTRAST Routine 02/24/2024 3:22 PM EDT Arterial insufficiency with ischemic ulcer BASIC METABOLIC PANEL (BMP) Routine 12/24/2023 7:54 AM EST HEMOGLOBIN A1C Routine 12/22/2023 6:59 AM EST HEPATITIS C ANTIBODY, QUALITATIVE Routine 10/12/2022 12:17 PM EST Encounter for hepatitis C virus screening test for high risk patient from Last 3 Months or Most Recently Relevant to Health Maintenance Results * CT ANGIO ABDOMINAL AORTA AND BILATERAL LOWER EXTREMITY RUNOFF WITH AND WITHOUT CONTRAST (43:22 PM EDT) Anatomical Region Laterality Modality Abdominal Vasculature, Foot Right, Foot Left, Ankle Right, Ankle Left, Leg Right, Leg Left, Knee Bilateral, Knee Right, Knee Left, Thigh Right, Thigh Left, Hip Bilateral, Hip Right, Hip Left Computed Wil graphy 02/26/2024 12:2 5 PM EDT Impressions 02/26/2024 [...] stenosis Right profunda femoris artery: Normal Right sxzhp-wuu-vpyn popliteal artery: occluded Right vfmml-dnb-vrpz popliteal artery: occluded Right anterior tibial artery: [...] Normal Left profunda femoris artery: Normal Left kcnvz-zfs-gvbr popliteal artery: occluded Left jxsee-kvx-ielh popliteal artery: Occluded with opacification of the [...] MRI ANGIO FEMORAL RUNOFF WITH AND WITHOUT [id number] FINDINGS: VASCULAR: ARTERIES: Aorta: Moderate aortoiliac atherosclerotic [...] stenosis Right profunda femoris artery: Normal Right odaoz-fxj-jdfc popliteal artery: occluded Right zfeaf-nwy-thgd popliteal artery: occluded Right anterior tibial artery: [...] Normal Left profunda femoris artery: Normal Left uzbjf-hlj-uexa popliteal artery: occluded Left zbqql-mlt-qjrt popliteal artery: Occluded with opacification of thetibial [...] distally. Raul Taveras MD, PhD IMG CT ABD/PELVIS F inal Result * (ABNORMAL) Basic metabolic panel (12/24/2023 7:54 AM EST) SODIUM 139 136 - 145 mmol/L [facility] POTASSIUM 3.6 3.4 - 5.1 mmol/L [facility] CHLORIDE 105 98 - 107 mmol/L [facility] CO2 23 22 - 31 mmol/L [facility] BUN 20 6 - 23 mg/dL [facility] CREATININE 1.19 0.50 - 1.20 mg/dL [facility] GLUCOSE 111(H) 70 - 100 mg/dL [facility] CALCIUM 8.7(L) 8.8 - 10.7 mg/dL [facility] EGFR 67 >59 mL/min/1.7 3m2 [facility] Comment:Estimated glomerular filtration rate calculated using the CKD-EPI refit equation. ANION GAP 11 7 - 17 mmol/L [facility] Blood 12/24/2023 7:54 AM EST 12/24/2023 8:08 AM EST Merritt Christian MD LAB BLOOD BKR ORDERA BLES Final Result Performing Organization Address [facility] de Phone Number [facility] [address] [place] [phone] * (ABNORMAL) Hemoglobin A1c (12/22/2023 6:59 AM EST) HEMOGLOBIN A1C 6.4(H) 4.2 - 5.6 % [facility] Comment: HbA1c levels 5.7-6.4% represent pre-diabetes, indicating impaired glucose control and an increased risk of developing diabetes. The diagnostic HbA1c level for diabetes is 6.5% or greater. HbA1c is performed by the Lulu Maru-quant immunoassay method which does not detect (incidental) hemoglobin variants. Hemoglobin electrophoresis should be ordered in patients with suspected hemoglobinopathies. CALC MEAN BLD GLUC 137 mg/dL [facility] Comment:The Calculated Mean Blood Glucose (CMBG) represents the estimated average glucose calculated from the measured hemoglobin A1c (HbA1c). There is no established normal range for the CMBG, however a 5.6% HbA1c (upper limit of normal) represents a CMBG of 114 mg/dL. Blood 12/22/2023 6:59 AM EST 12/22/2023 7:38 AM EST Merritt Christian MD LAB BLOOD BKR ORDERA BLES Final Result Performing Organization Address [facility] de Phone Number [facility] [address] [place] [phone] * Hepatitis C antibody, qualitative (10/12/2022 12:17 PM EST) HCV Nonreactive Nonreactive [facility] Comment: 10/12/2022 12:1 7 PM EST 10/12/2022 12:54 PM EST us Priya Kyle MD LAB BLOOD BKR ORDERABLES Fi nal Result Performing Organization Address City/State/[facility] Co de Phone Number [facility] [address] [place] [address] from Last 3 Months or Most Recently Relevant to Health Maintenance Additional Health Concerns Active Problems Noted Date Diagnosed Date Autogenerated Problem 09/24/2025 Insurance MEDICARE PART A & [place] [address] [place] [address] MEDICARE REPLACEMENT MEDICARE PART A & B MEDICARE PART A & B MEDICARE PART A & B MEDICARE REPLACEMENT MEDICARE PART A & B MEDICARE PART A & B Advance Directives For more information, please contact: [phone] (9AM - 5PM [facility] [place], Monday-Monday) * DNR OK to Intubate (Latest Code Status on File) Date Activated Date Inactivated Comments 09/20/2023 12:52 PM Question Answer Comments Code Status Confirmed With: Patient * DNR/DNI (No CPR/No Intubation) Date Activated Date Inactivated Comments 09/19/2023 6:19 PM 09/20/2023 12:52 PM Question Answer Comments Code Status Confirmed With: Patient * Full Code Date Activated Date Inactivated Comments 09/19/2023 5:28 PM 09/19/2023 6:19 PM Question Answer Comments Code Status Confirmed With: Other (specify below ) * Full Code Date Activated Date Inactivated Comments 07/21/2023 10:03 AM 09/19/2023 5:28 PM Question Answer Comments Code Status Confirmed With: Patient Code Status Communicated To: Inpatient Attending * Full Code Date Activated Date Inactivated Comments 07/21/2023 7:31 AM 07/21/2023 10:03 AM Question Answer Comments Code Status Confirmed With: Patient Code Status Communicated To: Inpatient Attending Additional Source Comments The information contained in this document represents components of the legal health record. It is not the complete legal health record.[facility]
--- OUTSIDE RECORDS SUMMARY | 2025-10-24 20:39 | XMS_ITS | Encounter Summary ---
Author Organization [facility] Address [address] [place] [address] Care Team Providers Care Baker Helper Name Role Phone Mich Grimes Primary Care Provider [phone] Reason for Referral * Consultation (Routine) - Closed Specialty Diagnoses / Procedures Referred By Cortney t Referred To Contact Ophthalmology Diagnoses Type 2 diabetes mellitus without complication, unspecified whether manager intermediate insulin use Mich Grimes PA [address] [address] Phone: tel: fax: Other Referral ID Status Reason Start Date Expiration Date V isits Requested Visits Authorized [id number] Closed Specialty Services Required 12/06/2024 06/04/2025 1 1 Encounter Details Date Type Department Care Team (Late st Contact Info) Description 12/06/2024 Orders Only [facility] Department of Internal Medicine [address] [phone] Mich Grimes PA [address] [phone] Type 2 diabetes mellitus without complication, unspecified whether manager intermediate insulin use (HCC) (Primary Dx) Social History Tobacco Use Types Packs/Day Years Used Date Smoking Tobacco: Every Day Cigarettes 0.3 16.7 Started: 02/27/2009 Smokeless Tobacco: Never Comments:2 cigs per day Alcohol Use Standard Drinks/Week Comments Yes 1 (1 standard drink = 0.6 oz pur e alcohol) social [facility] Utilities Answer Date Recorded In the past 12 months has th e electric, gas, oil, or water company [...] place to sleep or slept in a residential (including now)? Yes 03/05/2024 Sex and Gender [...] suspected to have Coronavirus/COVID-19? No / Unsure 12/06/2024 8:50 AM EST documented as of this encounter Plan of Treatment Upcoming Encounters Date Type Department Care Team (Late st Contact Info) Description 11/04/2025 2:00 PM EST Office Visit [facility] Department of Cardiology [address] [place] [address] Caryn Cid APRN [address] [facility] [place] [address] 12/09/2025 11:00 AM EST Office Visit [facility] of Nephrology [address] [place] [phone] Raul Thao MD [address] [place] [address] Scheduled Referrals Name Type Priority Associated Diagnoses Order Schedule Ambulatory referral to Ophthalmology Outpatient Referral Routine Type 2 diabetes mellitus without complication, unspecified whether halfway insulin use (HCC) Ordered: 12/06/2024 documented as of this encounter Visit Diagnoses Diagnosis Type 2 diabetes mellitus without complication, unspecified whether halfway insulin use- Primary documented in this encounter Care Teams Baker Helper Relationship Specialty Start Date End Date Mich Grimes PA 1 [facility] [address] [place] [address] PCP - General Internal Medicine 02/28/24 documented as of this encounter
--- OUTSIDE RECORDS SUMMARY | 2025-10-24 20:39 | XMS_ITS | Encounter Summary ---
Author Organization [facility] Address [address] [place] [phone] Phone Care Team Providers Care Office Machines Wirer Name Role Phone Priya Kyle MD Unavailable [phone] Encounter Details Date Type Department Care Team (Late st Contact Info) Description 09/06/2023 Procedure Pass [facility] [address] [place] [address] Social History Tobacco Use Types Packs/Day Years [...] high school, GED, job training, learning the Marshallese language, technical skills, or developing parenting skills)? [...] documented as of this encounter Care Teams Office Machines Wirer Relationship Specialty Start Date End Date Priya Kyle MD [address] [place] [phone] [email or web address] Partners Attributed Provider 11/12/22 03/15/24 documented as of this encounter Additional Source Comments The information contained in this document represents components of the legal health record. It is not the complete legal health record.[facility]
--- OUTSIDE RECORDS SUMMARY | 2025-10-24 20:39 | XMS_ITS | Encounter Summary ---
Author Organization [facility] Address [address] [place] [address] Care Team Providers Care Contract Clerk Automobile Name Role Phone Mich Grimes Primary Care Provider [phone] Encounter Details Date Type Department Care Team (Late st Contact Info) Description 10/14/2024 Orders Only [facility] Department of Internal Medicine 1 [facility],[address] [place] [address] Mich Grimes PA 1 [facility] [address] [place] [address] Social History Tobacco Use Types Packs/Day Years Used Date Smoking Tobacco: Every Day Cigarettes 0.3 16.7 Started: 02/27/2009 Smokeless Tobacco: Never Comments:2 cigs per day Alcohol Use Standard Drinks/Week Comments Yes 1 (1 standard drink = 0.6 oz pur e alcohol) social [facility] Utilities Answer Date Recorded In the past 12 months has [facility] [employer], gas, oil, or water [employer] threatened to shut off services in your [...] place to sleep or slept in a half-way (including now)? Yes 03/05/2024 Sex and Gender [...] Description 11/04/2025 2:00 PM EST Office Visit [facility] Department of Cardiology [address] [place] [address] Caryn Cid, AUTOMOTIVE DESIGNER [address] [facility] [place] [address] 12/09/2025 11:00 AM EST Office Visit [facility] Department of Nephrology [address] [facility] [place] [address] Raul Thao MD [address] [place] [address] documented as of this encounter Visit Diagnoses [...] EST (Rule out) COVID-19 11/03/2024 11/03/2024 11/03/20 24 12:52 PM EST documented as of this encounter Care Teams Contract Clerk Automobile Relationship Specialty Start Date End Date Mich Grimes PA 1 [facility] [address] [place] [address] PCP - General Internal Medicine 02/28/24 documented as of this encounter
--- OUTSIDE RECORDS SUMMARY | 2025-10-24 20:39 | XMS_ITS | Encounter Summary ---
Author Organization [facility] Address [address] [place] [address] Care Team Providers Care Grease Maker Name Role Phone Mich Grimes Primary Care Provider [phone] Encounter Details Date Type Department Care Team (Late st Contact Info) Description 04/16/2024 Orders Only [facility] Department of Internal Medicine 1 [facility],[address] [place] [address] Mich Grimes PA 1 [facility] [address] [place] [address] Social History Tobacco Use Types Packs/Day Years Used Date Smoking Tobacco: Every Day Cigarettes 0.3 16.7 Started: 02/27/2009 Smokeless Tobacco: Never Comments:2 cigs per day Alcohol Use Standard Drinks/Week Comments Yes 1 (1 standard drink = 0.6 oz pur e alcohol) social [facility] Utilities Answer Date Recorded In the past 12 months has [facility] [employer], gas, oil, or water [employer] threatened to shut off services in your [...] place to sleep or slept in a long term (including now)? Yes 03/05/2024 Sex and Gender [...] suspected to have Coronavirus/COVID-19? No / Unsure 03/20/2024 9:56 AM EDT documented as of this encounter Plan of Treatment Upcoming Encounters Date Type Department Care Team (Late st Contact Info) Description 11/04/2025 2:00 PM EST Office Visit [facility] Department of Cardiology [address] [place] [address] Caryn Cid APRN [address] [facility] [place] [address] 12/09/2025 11:00 AM EST Office Visit [facility] Department of Nephrology [address] [place] [address] Raul Thao MD [address] [place] [address] documented as of this encounter Visit Diagnoses [...] documented as of this encounter Care Teams Grease Maker Relationship Specialty Start Date End Date Mich Grimes PA 1 [facility] [address] [place] [address] PCP - General Internal Medicine 02/28/24 documented as of this encounter
--- OUTSIDE RECORDS SUMMARY | 2025-10-24 20:39 | XMS_ITS | Encounter Summary ---
Author Organization [facility] Address [address] [place] [address] Phone Care Team Providers Care Marriage And Family Teacher Name Role Phone Priya Kyle MD Unavailable [phone] Encounter Details Date Type Department Care Team ([facility] st Contact Info) Description 10/12/2022 Procedure Pass [facility] [address] [facility] [address] [place] [address] Social History Tobacco Use Types Packs/Day Years [...] high school, GED, job training, learning the [place]ian language, technical skills, or developing parenting skills)? [...] Noted Time PHQ-2 Depression Total Score: 0 10/12/20 22 10:01 AM EST documented as of this encounter Care Teams Marriage And Family Teacher Relationship Specialty Start Date End Date Priya Kyle MD [address] [place] [phone] [email or web address] Attributed Provider 11/12/22 03/15/24 documented as of this encounter Additional Source Comments The information contained in this document represents components of the legal health record. It is not the complete legal health record.[facility]
--- OUTSIDE RECORDS SUMMARY | 2025-10-24 20:39 | XMS_ITS | Clinical Summary ---
Author Organization Formerly [facility] Address [address] [place] [address] Care Team Providers Care Report Programmer Name Role Phone Mich Grimes Primary Care Provider [phone] Allergies Active Allergy Reactions Criticality Noted Date Comments Morphine 02/26/2024 Medications pen needle, diabetic (UltiCare Pen Needle) 29 gauge x 1/2 needle Use to inject 1-4 times daily as directed. 100 each 4 025 Active lancets misc 1 Stick in the morning and 1 Stick at noon and 1 Stick before bedtime. 100 each 4 Active blood-glucose meter misc Use daily or as directed for monitoring of diabetes. 1 each 4 025 Active aspirin 81 mg chewable tablet Take 81 mg by mouth in the morning. 4 Active insulin lispro (ADMELOG/HUMAL OG) 100 unit/mL injection Inject 1 Units under the skin in the morning and 1 Units at noon and 1 Units in the evening. Inject before meals. Active gabapentin (NEURONTIN) 100 mg capsule Take 1-3 capsules (100-300 mg total) by mouth nightly. 90 capsule 3 5 Active Additional Information Patient not taking.Reported on 08/26/2025 ketoconazole (NIZORAL) 2 % cream Apply topically in the morning. 5 Active metoprolol succinate XL (TOPROL-XL) 25 mg 24 hr tablet Take 75 mg by mouth in the morning. 5 028 Active insulin glargine (Lantus Solostar U-100 Insulin) 100 unit/mL (3 mL) insulin pen 10 UNITS SUBCUTANEOUS IN AM AND 20 UNITS SUBCUTANEOUS IN PM 30 mL 3 5 Active OneTouch Ultra Test strip TO BE USED WITH YOUR GLUCOMETER 100 strip 5 Active empagliflozin (Jardiance) 10 mg tablet Take 1 tablet (10 mg total) by mouth in the morning. 100 tablet 3 5 Active collagenase (SANTYL) ointment Apply 1 Application topically in the morning. 5 Active spironolactone (ALDACTONE) 25 mg tablet Take 1 tablet (25 mg total) by mouth in the morning. 90 tablet 3 5 Active sertraline (ZOLOFT) 50 mg tablet TAKE 1 TABLET (50 MG TOTAL) BY MOUTH IN THE MORNING 90 tablet 3 5 Active blood sugar diagnostic strip Use to check blood sugars daily 200 strip 11 5 Active oxyCODONE (ROXICODONE) 5 mg immediate release tablet Take 1 tablet (5 mg total) by mouth daily as needed for moderate pain (4-7). Max Daily Amount: 5 mg 30 tablet 5 Active atorvastatin (LIPITOR) 80 mg tablet Take 1 tablet (80 mg total) by mouth nightly. 90 tablet 1 5 Active losartan (Cozaar) 50 mg tabletIndicati ons:Biventricu lar congestive heart failure (HCC) Take 1 tablet (50 mg total) by mouth in the morning. 90 tablet 3 5 Active blood-glucose meter (Accu-Chek Guide Me Glucose Mtr) [facility] USE TO CHECK BLOOD SUGARS DAILY 1 each 1 5 Active LORazepam (ATIVAN) 1 mg tablet Take 1 mg by mouth. prn Active zolpidem (AMBIEN) 10 mg tablet Take 1 tablet (10 mg total) by mouth nightly as needed for insomnia. 30 tablet 5 Active LORazepam (ATIVAN) 1 mg tablet Take 1 tablet (1 mg total) by mouth daily as needed for anxiety or insomnia. 20 tablet 5 Active zolpidem (AMBIEN) 10 mg tablet Take 1 tablet (10 mg total) by mouth nightly as needed for insomnia. 30 tablet 5 025 Discontin ued(Reord er) LORazepam (ATIVAN) 1 mg tablet Take 1 tablet (1 mg total) by mouth daily as needed for anxiety or insomnia. 20 tablet 5 025 Discontin ued(Reord er) Active Problems Problem Noted Date Diagnosed Date Biventricular congestive heart failure 5 Assessment & Plan (08/26/2025 4:11 PM EDT): Clinically on exam he is euvolemic, warm and dry NYHA class I symptoms He continues on milrinone 0.125 mcq/kg/min We will continue on his current Jardiance 10 mg, Losartan 50 mg daily, spironolactone to 25 mg daily, Metoprolol Succinate 50 mg Am 25 mg PM Continue off torsemide His weight is up however I do not think it is volume. He admits to eating more calories and doing less activity. We discussed monitoring and cutting back He also quitting smoking as of April 06. Will get him connected with advanced heart failure at [facility] for Dr. Sweeney again for follow up. Last visit June wanted to see him 3-5 months. Will refer him to cardiac rehab in [place]. Recent lab work stable 08/14/2025 Assessment & Plan (04/23/2025 4:03 PM EDT): Clinically on exam he is euvolemic, warm and dry NYHA class I symptoms He continues on milrinone 0.125 mics per kilo per minute Would like to increase spironolactone to 25 mg daily He is getting his labs drawn through [facility] care every 2 weeks last on 6 5 potassium stable at 3.5 We will continue on his current Jardiance 10 mg, zine 25 mg 3 times daily metoprolol succinate 25 mg daily Furosemide 40 mg in the a.m. and 20 mg p.m. Will repeat a TTE as it has been over 3 months since his prior and we have not had follow-up since being on medical therapy and inotrope. He also quitting smoking as of April 06. Will get him enrolled in cardiac rehab close to home. He is scheduled to see advanced heart failure at [facility] for Dr. Sweeney in June. Assessment & Plan (02/18/2025 4:03 PM EDT): Today he is NYHA class II symptoms He is warm and mildly hypervolemic but much improved from his initial presentation He remains on milrinone 0.125 mcg/kg/min Overall he feels very good but is inquiring about when this medication can be stopped. He agrees and understands the need for advanced heart failure consultation to discuss next steps in his management and workup. We discussed does that mean maintaining on inotropic support versus mechanical circulatory support versus heart transplantation. In regards to GDMT. I do not feel we can uptitrate his afterload reduction due SBP's in the 90 Recent BMP on February 13 Sodium 136 potassium 3.5 chloride 94 CO2 25 BUN 87 creatinine 2.96 Creatinine is mildly up from discharge 2.8 CBC WBC 7.1 hemoglobin 10.6 hematocrit 31.5 platelets 172 He will continue on heart healthy low-sodium diet Continue to monitor his daily weights and notify us if he continues to retain fluid Will continue on his current torsemide Assessment & Plan (02/08/2025 12:00 AM EDT): #Acute decompensated HFrEF with EF of 10-15% (severe biventricular dysfunction) Acute biventricular heart failure most recent echo from 01/29/2025 revealing EF 10 to 15%. grade 2 diastolic dysfunction with severe biventricular dysfunction not seen on prior echo. Patient with associated worsening shortness of breath, worsening dyspnea on exertion, orthopnea, chest pain. BNP 1629 increased from 1,238 from 01/28/2025. CXR: Increasing small pleural effusion, mild central vascular congestion without overt edema. Initial high-sensitivity troponin 58, repeat flattened, 57. On initial exam, patient with 3+ pitting edema extending to bilateral hips, with shortness of breath, + JVD. Patient previously on SGLT2 and ARB however these were held during admission with AIN previously. His home dose of Lasix was 40 mg however was increased to 80 mg by PCP recently. During this admission, he was started of IV Lasix BID for diuresis with Dobutamine drip for inotropic support. Diuresing pretty well on current IV Lasix, net around -2 Liters, and down by more then 30 lbs since admission. He status post right sided heart catheterization (02/03), which showed mild postcapillary pulmonary hypertension, and adequate cardiac output and index. We had stopped his dobutamine drip, but patient was not able to tolerate this, and had several hypotensive episodes, systolic blood pressure in the 80s without the inotropic support. Patient discussed with the heart failure team, and recommendation was starting milrinone drip and transferred to the ICU for this, has been doing well and transferred back to medicine floors today. IV Lasix has been changed to Torsemide BID. He will be discharged on Milrinone drip. Further discharge recommendations as noted below: Discharge Medications & Follow-Up: The patient was discharged on the following new medications: Metoprolol 25 mg daily Hydralazine 25 mg TID Jardiance 10 mg daily Isosorbide dinitrate TID Aspirin 81 mg daily In addition, the patient will continue home Milrinone infusion at 0.125 mcg/kg/min. Teaching regarding home milrinone management was completed by Christ[facility] from [facility] during hospitalization, and the patient was counseled appropriately. The remainder of the patient s home medications were continued unless otherwise specified. Follow-Up Arrangements: Cardiology follow-up already arranged; the patient has an upcoming appointment on February 18 Advanced Heart Failure Clinic follow-up also arranged with [facility] The patient was referred to Nephrology for outpatient management of chronic kidney disease, for monitoring of renal function (Creatinine of 2.8 on discharge which may be close to his new baseline) A follow-up BMP has been ordered via [employer] to monitor kidney function; to follow up with PCP The patient was instructed to follow up with their primary care provider within 2 weeks to review the hospitalization and management plan Assessment & Plan (02/04/2025 9:32 PM EDT): #Acute decompensated HFrEF with EF of 10-15% (severe biventricular dysfunction) Acute biventricular heart failure most recent echo from 01/29/2025 revealing EF 10 to 15%. grade 2 diastolic dysfunction with severe biventricular dysfunction not seen on prior echo. Patient with associated worsening shortness of breath, worsening dyspnea on exertion, orthopnea, chest pain. BNP 1629 increased from 1,238 from 01/28/2025. CXR: Increasing small pleural effusion, mild central vascular congestion without overt edema. Initial high-sensitivity troponin 58, repeat flattened, 57. Received 40 mg IV Lasix x 1 in ED. On initial exam, patient with 3+ pitting edema extending to bilateral hips, with shortness of breath, + JVD. Patient previously on SGLT2 and ARB however these were held during admission with AIN. His home dose of Lasix was 40 mg however was increased to 80 mg by PCP recently. He was started of IV Lasix BID for diuresis with Dobutamine drip for inotropic support. Diuresing pretty well on current IV Lasix, net around -2 Liters, and down by more then 30 lbs since admission. He status post right sided heart catheterization (02/03), which showed mild postcapillary pulmonary hypertension, and adequate cardiac output and index. We had stopped his dobutamine drip around noontime today, but patient was not able to tolerate this, and had several hypotensive episodes, systolic blood pressure in the 80s without the inotropic support. Patient discussed with the heart failure team, and recommendation was starting milrinone drip and transferred to the ICU for central line (at this time will not be able to obtain a PICC line), concern for developing cardiogenic shock -Vital signs every four hours; close monitoring for hypotension -Continue IV Lasix 40 mg BID -Status post dobutamine drip; titrated down today -As noted above, will start Milrinone drip for inotropic support (0.125mcg/kg/min) --> transfer to ICU for central line placement and close monitoring -Started on Hydralazine and Isordil; will hold for now in the setting of patient's hypotension -Started on jardiance 10 mg daily; continue -Hold off on initiating beta-maxi per cardiology -Continue aspirin 81 mg daily and lipitor -Cardiology closely following; recommendations appreciated -Monitor on telemetry -Daily BMP -Goal Mg >2.2/ K 4.0 -Strict I&Os/daily weights -Will need outpatient cardiology follow up and [facility] -Low-salt diet with fluid restriction Assessment & Plan (02/03/2025 11:49 AM EDT): CHF exacerbation Acute biventricular heart failure most recent echo from 01/29/2025 revealing EF 10 to 15%. grade 2 diastolic dysfunction with severe biventricular dysfunction not seen on prior echo. Patient with associated worsening shortness of breath, worsening dyspnea on exertion, orthopnea, chest pain. BNP 1629 increased from 1,238 from 01/28/2025. CXR: Increasing small pleural effusion, mild central vascular congestion without overt edema. Initial high-sensitivity troponin 58, repeat flattened, 57. Received 40 mg IV Lasix x 1 in ED. On exam, patient with 3+ pitting edema extending to bilateral hips he is maintaining optimal oxygen saturation while on room air at 96% however patient is reporting shortness of breath and feeling as he is not being oxygenated well, + JVD. Patient previously on SGLT2 and ARB however these were held during admission with AIN. His home dose of Lasix was 40 mg however was increased to 80 mg by PCP yesterday. Reports adherence to daily medication. Plan: Dry weight reported by patient ~ 200# -Appreciate cardiology consult recommendations. -IV furosemide 40 mg IV BID -Dobutamine drip -started on hydralazine and isordil, continue -started on jardiance 10 mg daily -Appreciate cardiology recs -Hold off on initiating beta-maxi per cardiology -Continue aspirin 81 mg daily and lipitor -Monitor on telemetry -Monitor BMP, Mg while being diuresed. -Goal Mg >2.2/ K 4.0 -Strict I&O -Daily standing weights - current plan diuresis over the weekend and possible cath early next week -Will need outpatient cardiology follow up -low salt diet, fluid rest Assessment & Plan (02/02/2025 10:56 AM EDT): CHF exacerbation Acute biventricular heart failure most recent echo from 01/29/2025 revealing EF 10 to 15%. grade 2 diastolic dysfunction with severe biventricular dysfunction not seen on prior echo. Patient with associated worsening shortness of breath, worsening dyspnea on exertion, orthopnea, chest pain. BNP 1629 increased from 1,238 from 01/28/2025. CXR: Increasing small pleural effusion, mild central vascular congestion without overt edema. Initial high-sensitivity troponin 58, repeat flattened, 57. Received 40 mg IV Lasix x 1 in ED. On exam, patient with 3+ pitting edema extending to bilateral hips he is maintaining optimal oxygen saturation while on room air at 96% however patient is reporting shortness of breath and feeling as he is not being oxygenated well, + JVD. Patient previously on SGLT2 and ARB however these were held during admission with AIN. His home dose of Lasix was 40 mg however was increased to 80 mg by PCP yesterday. Reports adherence to daily medication. Plan: Dry weight reported by patient ~ 200# -Appreciate cardiology consult recommendations. -IV furosemide 40 mg IV BID -Dobutamine drip -started on hydralazine and isordil, continue -started on jardiance 10 mg daily -Appreciate cardiology recs -Hold off on initiating beta-maxi per cardiology -Continue aspirin 81 mg daily and lipitor -Monitor on telemetry -Monitor BMP, Mg while being diuresed. -Goal Mg >2.2/ K 4.0 -Strict I&O -Daily standing weights - current plan diuresis over the weekend and possible cath early next week -Will need outpatient cardiology follow up -low salt diet, fluid rest Assessment & Plan (02/01/2025 11:05 AM EDT): CHF exacerbation Acute biventricular heart failure most recent echo from 01/29/2025 revealing EF 10 to 15%. grade 2 diastolic dysfunction with severe biventricular dysfunction not seen on prior echo. Patient with associated worsening shortness of breath, worsening dyspnea on exertion, orthopnea, chest pain. BNP 1629 increased from 1,238 from 01/28/2025. CXR: Increasing small pleural effusion, mild central vascular congestion without overt edema. Initial high-sensitivity troponin 58, repeat flattened, 57. Received 40 mg IV Lasix x 1 in ED. On exam, patient with 3+ pitting edema extending to bilateral hips he is maintaining optimal oxygen saturation while on room air at 96% however patient is reporting shortness of breath and feeling as he is not being oxygenated well, + JVD. Patient previously on SGLT2 and ARB however these were held during admission with AIN. His home dose of Lasix was 40 mg however was increased to 80 mg by PCP yesterday. Reports adherence to daily medication. Plan: Dry weight reported by patient ~ 200# -Appreciate cardiology consult recommendations. -IV furosemide 40 mg IV BID -Dobutamine drip -started on hydralazine and isordil, continue -started on jardiance 10 mg daily -Appreciate cardiology recs -Hold off on initiating beta-maxi per cardiology -Continue aspirin 81 mg daily and lipitor -Monitor on telemetry -Monitor BMP, Mg while being diuresed. -Goal Mg >2.2/ K 4.0 -Strict I&O -Daily standing weights - cauurent plan diuresis over the weekend and possible cath early next week -Will need outpatient cardiology follow up -low salt diet, fluid rest Assessment & Plan (01/31/2025 3:22 PM EDT): CHF exacerbation Acute biventricular heart failure most recent echo from 01/29/2025 revealing EF 10 to 15%. grade 2 diastolic dysfunction with severe biventricular dysfunction not seen on prior echo. Patient with associated worsening shortness of breath, worsening dyspnea on exertion, orthopnea, chest pain. BNP 1629 increased from 1,238 from 01/28/2025. CXR: Increasing small pleural effusion, mild central vascular congestion without overt edema. Initial high-sensitivity troponin 58, repeat flattened, 57. Received 40 mg IV Lasix x 1 in ED. On exam, patient with 3+ pitting edema extending to bilateral hips he is maintaining optimal oxygen saturation while on room air at 96% however patient is reporting shortness of breath and feeling as he is not being oxygenated well, + JVD. Patient previously on SGLT2 and ARB however these were held during admission with AIN. His home dose of Lasix was 40 mg however was increased to 80 mg by PCP yesterday. Reports adherence to daily medication. Plan: Dry weight reported by patient ~ 200# -Appreciate cardiology consult recommendations. -IV furosemide 80 mg IV BID -Dobutamine drip -started on hydralazine nad isordil -started on jardiance 10 mg daily -Appreciate cardiology recs -Hold off on initiating beta-maxi per cardiology -Continue aspirin 81 mg daily and lipitor -Monitor on telemetry -Monitor BMP, Mg, Phos BID while being diuresed. -Goal Mg >2.2/ K 4.0/ Phos 3.0 -Strict I&O -Daily standing weights -check urine Na 2 hours after next dose lasix -Will need outpatient cardiology follow up Assessment & Plan (01/30/2025 7:33 PM EDT): Acute biventricular heart failure most recent echo from 01/29/2025 revealing EF 10 to 15%. grade 2 diastolic dysfunction with severe biventricular dysfunction not seen on prior echo. Patient with associated worsening shortness of breath, worsening dyspnea on exertion, orthopnea, chest pain. BNP 1629 increased from 1,238 from 01/28/2025. CXR: Increasing small pleural effusion, mild central vascular congestion without overt edema. Initial high-sensitivity troponin 58, repeat flattened, 57. Received 40 mg IV Lasix x 1 in ED. On exam, patient with 3+ pitting edema extending to bilateral hips he is maintaining optimal oxygen saturation while on room air at 96% however patient is reporting shortness of breath and feeling as he is not being oxygenated well, + JVD. 800 ml clear yellow urine noted at bedside in urinal . Patient previously on SGLT2 and ARB however these were held during admission with AIN. His home dose of Lasix was 40 mg however was increased to 80 mg by PCP yesterday. Reports adherence to daily medication. Plan: Dry weight reported by patient ~ 200#, Weight on admission 238# -Appreciate cardiology consult recommendations. -Please give one-time dose of furosemide 80 mg IV x 1 now -Per cardiology, recommending diuresing with Lasix 80 mg IV twice daily, pushing diuresis over the next 24 hours and consider reinitiation of ARB. -Hold off on initiating beta-maxi per cardiology -Continue aspirin 81 mg daily -DC Pletal -Monitor on telemetry -Check TSH, free T4 LFTs, lactate, phos, ferritin, iron panel -BMP, Mg, Phos BID while being diuresed. -Goal Mg >2.2/ K 4.0/ Phos 3.0 -Strict I&O -Daily standing weights -Goal net -1L over 24 hours -Repeat troponin flattened, no need to repeat -GDMT: -2 g Na diet -NPO after midnight for possible right/left heart cardiac catheterization depending on renal function -Will need outpatient cardiology follow up Elevated serum creatinine 10/25/2024 Assessment & Plan (02/08/2025 12:00 AM EDT): Presented with creatinine 2.3. Had renal biopsy on 10/31/2024 consistent with acute interstitial nephritis. He was treated with prednisone taper. His cr imroved to 2.1-2.3 after AIN at that time, likely his new baseline is around 2. Creatinine trend for the past week has stayed in 2.7-2.8 range. 2.8 on discharge day. He will need close follow up with his nephrology. The patient was referred to Nephrology for outpatient management of chronic kidney disease, for monitoring of renal function (Creatinine of 2.8 on discharge which may be close to his new baseline) A follow-up BMP has been ordered via [employer] to monitor kidney function; to follow up with PCP The patient was instructed to follow up with their primary care provider within 2 weeks to review the hospitalization and management plan Assessment & Plan (02/04/2025 9:32 PM EDT): Presented with creatinine 2.3. Had renal biopsy on 10/31/2024 consistent with acute interstitial nephritis. He was treated with prednisone taper. Patient previously on SGLT2 and ARB however these were held during admission with AIN. His home dose of Lasix was 40 mg however was increased to 80 mg by PCP yesterday. He had AI and his cr imroved to 2.1-2.3 after AIN , likely his new baseline is around 2. Creatinine is 2.8 today. -Strict I&O -BMP, Mg, Phos BID -Renally dose medications as appropriate -Avoid nephrotoxic agents -Nephrology consulted; appreciate recommendations Assessment & Plan (02/03/2025 11:49 AM EDT): Presented with creatinine 2.3. Had renal biopsy on 10/31/2024 consistent with acute interstitial nephritis. He was treated with prednisone taper. Patient previously on SGLT2 and ARB however these were held during admission with AIN. His home dose of Lasix was 40 mg however was increased to 80 mg by PCP yesterday. He had AI and his cr imroved to 2.1-2.3 after AIN , likely his new baseline is around 2. -Strict I&O -BMP, Mg, Phos BID -Renally dose medications as appropriate -Avoid nephrotoxic agents -Will eed outpatient nephrology follow-up Assessment & Plan (02/02/2025 10:56 AM EDT): Presented with creatinine 2.3. Had renal biopsy on 10/31/2024 consistent with acute interstitial nephritis. He was treated with prednisone taper. Patient previously on SGLT2 and ARB however these were held during admission with AIN. His home dose of Lasix was 40 mg however was increased to 80 mg by PCP yesterday. He had AI and his cr imroved to 2.1-2.3 after AIN , likely his new baseline is around 2. -Strict I&O -BMP, Mg, Phos BID -Renally dose medications as appropriate -Avoid nephrotoxic agents -Will eed outpatient nephrology follow-up Assessment & Plan (02/01/2025 10:56 AM EDT): Presented with creatinine 2.3. Had renal biopsy on 10/31/2024 consistent with acute interstitial nephritis. He was treated with prednisone taper. Patient previously on SGLT2 and ARB however these were held during admission with AIN. His home dose of Lasix was 40 mg however was increased to 80 mg by PCP yesterday. He had AI and his cr imroved to 2.1-2.3 after AIN , likely his new baseline is around 2. -Strict I&O -BMP, Mg, Phos BID -Renally dose medications as appropriate -Avoid nephrotoxic agents -Will eed outpatient nephrology follow-up Assessment & Plan (01/31/2025 3:21 PM EDT): Presented with creatinine 2.3. Had renal biopsy on 10/31/2024 consistent with acute interstitial nephritis. He was treated with prednisone taper. Patient previously on SGLT2 and ARB however these were held during admission with AIN. His home dose of Lasix was 40 mg however was increased to 80 mg by PCP yesterday. He had AI and his cr imroved to 2.1-2.3 after AIN , likely his new baseline is around 2. -Strict I&O -BMP, Mg, Phos BID while being diuresed. -Renally dose medications as appropriate -Avoid nephrotoxic agents -Will eed outpatient nephrology follow-up Assessment & Plan (01/30/2025 7:33 PM EDT): Presented with creatinine 2.3. Had renal biopsy on 10/31/2024 consistent with acute interstitial nephritis. He was treated with prednisone taper. Patient previously on SGLT2 and ARB however these were held during admission with AIN. His home dose of Lasix was 40 mg however was increased to 80 mg by PCP yesterday. Baseline creatinine appears to be 1.3-1.5 He received one-time dose of furosemide 40 mg IV. JAX on CKD likely cardiorenal. Plan: -Strict I&O -Daily standing weights -May need additional spot dose of IV lasix this evening, -BMP, Mg, Phos BID while being diuresed. -Consider nephrology consult for persistent JAX. ARB and SGLT2 were held during admission for ATN plan outpatient was to reinitiate ARB first. -Bladder scan q shift and as needed; record PVR -Check urine Cr, urine urea, albumin/creatinine ration -Renally dose medications as appropriate -Avoid nephrotoxic agents -Renal/cardiac/carb counting diet -Will eed outpatient nephrology follow-up Assessment & Plan (11/03/2024 5:04 PM EST): Severe JAX with associated acidosis and uremia. Slightly confused on initial evaluation. Reported 1 week of vomiting and diarrhea. Outpatient labs showed creatinine 18.4, BUN 162. Presentation most likely prerenal which has progressed to ATN. Could also consider AIN due to recent antibiotic use. Hemolytic anemia was ruled out with labs, oncology also reviewed smear. Renal imaging shows no obstructive pathology. Urine studies suggestive of intrinsic etiology with Valerie 10%. No flank pain. He states he is still voiding. He received 1 L of LR in ED with an additional 1L on the floor and then maintained on continuous fluids. -Morning blood work continues to show some improvement. - Hgb stable post bx. Hematuria improving. - Renal bx consistent with Acute/allergic interstitial nephritis with ATN- diabetic nephropathy and tubular injury. - Pt to be started on prednisone taper starting at 60mg for 2 days, followed by 50mg for 3 days, then taper by 10mg every 3 days until he is down to 10mg. - No aspirin for 1 week. - DVT ppx on hold. - Avoid heavy lifting or straining for 1 week. Verbally told patient to stop Valsartan and Jardiance on DC for now per nephro recs. Assessment & Plan (11/02/2024 6:18 PM EST): Severe JAX with associated acidosis and uremia. Slightly confused on initial evaluation. Reported 1 week of vomiting and diarrhea. Outpatient labs showed creatinine 18.4, BUN 162. Presentation most likely prerenal which has progressed to ATN. Could also consider AIN due to recent antibiotic use. Hemolytic anemia was ruled out with labs, oncology also reviewed smear. Renal imaging shows no obstructive pathology. Urine studies suggestive of intrinsic etiology with Valerie 10%. No flank pain. He states he is still voiding. He received 1 L of LR in ED with an additional 1L on the floor and then maintained on continuous fluids. -Morning blood work continues to show some improvement. - Hgb stable post bx. Hematuria improving. - Renal bx consistent with Acute/allergic interstitial nephritis with ATN- diabetic nephropathy and tubular injury. - Pt to be started on prednisone taper starting at 60mg for 2 days, followed by 50mg for 3 days, then taper by 10mg every 3 days until he is down to 10mg. - No aspirin for 1 week. - DVT ppx on hold. - Avoid heavy lifting or straining for 1 week. -Monitor I's and O's -Hold valsartan -Avoid nephrotoxic meds Assessment & Plan (11/01/2024 5:26 PM EST): Severe JAX with associated acidosis and uremia. Slightly confused on initial evaluation. Reported 1 week of vomiting and diarrhea. Outpatient labs showed creatinine 18.4, BUN 162. Presentation most likely prerenal which has progressed to ATN. Could also consider AIN due to recent antibiotic use. Hemolytic anemia was ruled out with labs, oncology also reviewed smear. Renal imaging shows no obstructive pathology. Urine studies suggestive of intrinsic etiology with Valerie 10%. No flank pain. He states he is still voiding. He received 1 L of LR in ED with an additional 1L on the floor and then maintained on continuous fluids. -Morning blood work continues to show some improvement. - Hgb stable post bx. Hematuria improving. - Renal bx consistent with Acute/allergic interstitial nephritis with ATN- diabetic nephropathy and tubular injury. - Pt to be started on prednisone taper starting at 60mg for 2 days, followed by 50mg for 3 days, then taper by 10mg every 3 days until he is down to 10mg. - No aspirin for 1 week. - DVT ppx on hold. - Avoid heavy lifting or straining for 1 week. -Monitor I's and O's -Hold valsartan -Avoid nephrotoxic meds Assessment & Plan (10/31/2024 6:28 PM EST): Severe JAX with associated acidosis and uremia. Slightly confused on initial evaluation. Reported 1 week of vomiting and diarrhea. Outpatient labs showed creatinine 18.4, BUN 162. Presentation most likely prerenal which has progressed to ATN. Could also consider AIN due to recent antibiotic use. Hemolytic anemia was ruled out with labs, oncology also reviewed smear. Renal imaging shows no obstructive pathology. Urine studies suggestive of intrinsic etiology with Valerie 10%. No flank pain. He states he is still voiding. He received 1 L of LR in ED with an additional 1L on the floor and then maintained on continuous fluids. -Morning blood work continues to show some improvement. - Nephro is recommending holding HD for rest of the week. Renal bx to take place today 10/31. 1x dose of DDVAP ordered for 30 minutes before - Repeat CBC 6hrs after renal bx- ordered for 8pm. no nsaids, no aspirin for 1 week. - DVT ppx on hold. - Avoid heavy lifting or straining for 1 week. -Monitor I's and O's -Hold valsartan -Avoid nephrotoxic meds Assessment & Plan (10/30/2024 3:29 PM EST): Severe JAX with associated acidosis and uremia. Slightly confused on initial evaluation. Reported 1 week of vomiting and diarrhea. Outpatient labs showed creatinine 18.4, BUN 162. Presentation most likely prerenal which has progressed to ATN. Could also consider AIN due to recent antibiotic use. Hemolytic anemia was ruled out with labs, oncology also reviewed smear. Renal imaging shows no obstructive pathology. Urine studies suggestive of intrinsic etiology with Valerie 10%. No flank pain. He states he is still voiding. He received 1 L of LR in ED with an additional 1L on the floor and then maintained on continuous fluids. -Continue IV fluids: LR @ 100mL/hr. -Morning blood work continues to show some improvement. - Nephro is recommending holding HD for rest of the week. Will repeat CBC and RFP this evening and again tomorrow morning to see if labs are stable for him to safely undergo renal Bx tomorrow. DDAVP to be administered prior to renal bx on 10/31. - There is concern for AIN. Proteinuria workup ordered as well-including viral serology, ANCAs, JHOAN, anti DsDNA, C3, C4, SPEP, 24 hr UPEP with IFA, Bence Fuentes protein. -Monitor I's and O's -Hold valsartan -Avoid nephrotoxic meds Assessment & Plan (10/29/2024 6:55 PM EST): Severe JAX with associated acidosis and uremia. Slightly confused on initial evaluation. Reported 1 week of vomiting and diarrhea. Outpatient labs showed creatinine 18.4, BUN 162. Presentation most likely prerenal which has progressed to ATN. Could also consider AIN due to recent antibiotic use. Hemolytic anemia was ruled out with labs, oncology also reviewed smear. Renal imaging shows no obstructive pathology. Urine studies suggestive of intrinsic etiology with Valerie 10%. No flank pain. He states he is still voiding. He received 1 L of LR in ED with an additional 1L on the floor and then maintained on continuous fluids. -Continue IV fluids: LR @ 150mL/hr. -Morning blood work continues to show some improvement. - Nephro is recommending 2nd session of HD tomorrow 10/30. DDAVP to be administered prior to renal bx on 10/31. - There is concern for AIN. Proteinuria workup ordered as well-including viral serology, ANCAs, JHOAN, anti DsDNA, C3, C4, SPEP, 24 hr UPEP with IFA, Bence Fuentes protein. -Monitor I's and O's -Hold valsartan -Avoid nephrotoxic meds Assessment & Plan (10/28/2024 12:41 PM EST): Severe JAX with associated acidosis and uremia. Slightly confused on initial evaluation. Reported 1 week of vomiting and diarrhea. Outpatient labs showed creatinine 18.4, BUN 162. Presentation most likely prerenal which has progressed to ATN. Could also consider AIN due to recent antibiotic use. Hemolytic anemia was ruled out with labs, oncology also reviewed smear. Renal imaging shows no obstructive pathology. Urine studies suggestive of intrinsic etiology with Valerie 10%. No flank pain. He states he is still voiding. He received 1 L of LR in ED with an additional 1L on the floor and then maintained on continuous fluids. -Continue IV fluids: LR @ 150mL/hr. -Morning blood work continues to show some improvement. Creatinine down to 12.70, BUN of 121 today. - Nephro is recommending temp HD cath placement with initiation of HD here inpatient. Possible renal bx on 10/31. -Monitor I's and O's -Hold valsartan -Avoid nephrotoxic meds Assessment & Plan (10/27/2024 1:56 PM EST): Severe JAX with associated acidosis and uremia. Slightly confused on initial evaluation. Reported 1 week of vomiting and diarrhea. Outpatient labs showed creatinine 18.4, BUN 162. Presentation most likely prerenal which has progressed to ATN. Could also consider AIN due to recent antibiotic use. Hemolytic anemia was ruled out with labs, oncology also reviewed smear. Renal imaging shows no obstructive pathology. Urine studies suggestive of intrinsic etiology with Valerie 10%. No flank pain. He states he is still voiding. He received 1 L of LR in ED with an additional 1L on the floor and then maintained on continuous fluids. -Continue IV fluids -Morning blood work continues to show some improvement. Creatinine down to 13.9 today. -Monitor I's and O's -Hold valsartan -Avoid nephrotoxic meds -Appreciate nephrology input, ?need for kidney biopsy Assessment & Plan (10/26/2024 12:35 PM EST): Severe JAX with associated acidosis and uremia. Slightly confused on initial evaluation. Reported 1 week of vomiting and diarrhea. Outpatient labs showed creatinine 18.4, BUN 162. Presentation most likely prerenal which has progressed to ATN. Could also consider AIN due to recent antibiotic use. Hemolytic anemia was ruled out with labs, oncology also reviewed smear. Renal imaging shows no obstructive pathology. Urine studies suggestive of intrinsic etiology with Valerie 10%. No flank pain. He states he is still voiding. He received 1 L of LR in ED with an additional 1L on the floor and then maintained on continuous fluids. -Awaiting morning blood work, will continue to trend. Yesterday evening showed some improvement. -Monitor I's and O's -Bladder scan -Hold valsartan -Avoid nephrotoxic meds -Appreciate nephrology input Assessment & Plan (10/25/2024 4:07 AM EST): Severe JAX with associated acidosis and uremia. He seems slightly confused. In setting of 1 week of vomiting and diarrhea this is likely prerenal which most likely has progressed to ATN. No flank pain. He states he is still voiding. He received 1 L of LR in ED -Continue LR 100 cc an hour -UA,Urine Na,Cr,Urea, -Monitor I's and O's -Bladder scan -Hold valsartan -Appreciate nephrology input PVD (peripheral vascular disease) 03/05/2024 Assessment & Plan (11/03/2024 4:41 PM EST): It was unclear if patient was still on Xarelto and aspirin on admission. Xarelto was held given kidney failure. Discussed with family who reported he still had the bottle at home and still pending. Per recent dispense history this was inaccurate. Discussed again with patient and family who again confirmed he had medication at home. - Can hold off on xarelto at this time, continue cilostazol per Vasc surg. Vasc surg recs reviewed. -Continue aspirin- resumed on 11/08 (1 week after renal bx). Assessment & Plan (11/02/2024 6:18 PM EST): It was unclear if patient was still on Xarelto and aspirin on admission. Xarelto was held given kidney failure. Discussed with family who reported he still had the bottle at home and still pending. Per recent dispense history this was inaccurate. Discussed again with patient and family who again confirmed he had medication at home. - Can hold off on xarelto at this time, continue cilostazol per Vasc surg. Vasc surg recs reviewed. -Continue aspirin Assessment & Plan (11/01/2024 5:26 PM EST): It was unclear if patient was still on Xarelto and aspirin on admission. Xarelto was held given kidney failure. Discussed with family who reported he still had the bottle at home and still pending. Per recent dispense history this was inaccurate. Discussed again with patient and family who again confirmed he had medication at home. - Can hold off on xarelto at this time, continue cilostazol per Vasc surg. Vasc surg recs reviewed. -Continue aspirin Assessment & Plan (10/31/2024 6:28 PM EST): It was unclear if patient was still on Xarelto and aspirin on admission. Xarelto was held given kidney failure. Discussed with family who reported he still had the bottle at home and still pending. Per recent dispense history this was inaccurate. Discussed again with patient and family who again confirmed he had medication at home. - Can hold off on xarelto at this time, continue cilostazol per Vasc surg. Vasc surg recs reviewed. -Continue aspirin Assessment & Plan (10/30/2024 3:29 PM EST): It was unclear if patient was still on Xarelto and aspirin on admission. Xarelto was held given kidney failure. Discussed with family who reported he still had the bottle at home and still pending. Per recent dispense history this was inaccurate. Discussed again with patient and family who again confirmed he had medication at home. - Can hold off on xarelto at this time, continue cilostazol per Vasc surg. Vasc surg recs reviewed. -Continue aspirin Assessment & Plan (10/29/2024 6:55 PM EST): It was unclear if patient was still on Xarelto and aspirin on admission. Xarelto was held given kidney failure. Discussed with family who reported he still had the bottle at home and still pending. Per recent dispense history this was inaccurate. Discussed again with patient and family who again confirmed he had medication at home. - Can hold off on xarelto at this time, continue cilostazol per Vasc surg. Vasc surg recs reviewed. -Continue aspirin Assessment & Plan (10/28/2024 12:41 PM EST): It was unclear if patient was still on Xarelto and aspirin on admission. Xarelto was held given kidney failure. Discussed with family who reported he still had the bottle at home and still pending. Per recent dispense history this was inaccurate. Discussed again with patient and family who again confirmed he had medication at home. - Can hold off on xarelto at this time, continue cilostazol per Vasc surg. Vasc surg recs reviewed. -Continue aspirin Assessment & Plan (10/27/2024 1:56 PM EST): It was unclear if patient was still on Xarelto and aspirin on admission. Xarelto was held given kidney failure. Discussed with family who reported he still had the bottle at home and still pending. Per recent dispense history this was inaccurate. Discussed again with patient and family who again confirmed he had medication at home. -Will discuss with vascular surgery today -Continue aspirin Assessment & Plan (10/26/2024 12:35 PM EST): On Xarelto and aspirin? -Hold Xarelto for now given kidney failure -Will discuss with vascular surgery -Continue aspirin -Med tech reconciliation Assessment & Plan (10/25/2024 4:07 AM EST): On Xarelto and aspirin? -Hold Xarelto for now given kidney failure -Consider transitioning to heparin -Continue aspirin -Med tech reconciliation Coronary artery disease involving [place] heart 0 03/04/2024 Assessment & Plan (11/03/2024 4:18 PM EST): -Continue aspirin and atorvastatin Assessment & Plan (11/02/2024 6:18 PM EST): -Continue aspirin and atorvastatin Assessment & Plan (11/01/2024 5:26 PM EST): -Continue aspirin and atorvastatin Assessment & Plan (10/31/2024 6:28 PM EST): -Continue aspirin and atorvastatin Assessment & Plan (10/30/2024 3:29 PM EST): -Continue aspirin and atorvastatin Assessment & Plan (10/29/2024 6:55 PM EST): -Continue aspirin and atorvastatin Assessment & Plan (10/28/2024 12:41 PM EST): -Continue aspirin and atorvastatin Assessment & Plan (10/27/2024 1:56 PM EST): -Continue aspirin and atorvastatin Assessment & Plan (10/26/2024 12:35 PM EST): -Continue aspirin and atorvastatin Assessment & Plan (10/25/2024 4:07 AM EST): -Continue aspirin and atorvastatin Assessment & Plan (03/04/2024 1:39 PM EDT): Gage has a history of multivessel surgical revascularization a little bit over 4 years ago when he had what sounds like unstable angina. He has done well without any recurrent signs or symptoms of coronary ischemia since that time. He is currently on a good secondary preventative regimen which she should continue without modification. Hypertension 03/04/2024 Assessment & Plan (08/26/2025 3:47 PM EDT): BP is well controlled Tolerating losartan 50 mg daily Metoprolol Succinate 75 mg (50 mg am 25 mg pm) Assessment & Plan (02/18/2025 4:03 PM EDT): BP low normal He is asymptomatic No changes to current Isordil, hydralazine and metoprolol Assessment & Plan (02/08/2025 12:00 AM EDT): -Resume home medications Assessment & Plan (02/04/2025 9:32 PM EDT): Patient with history of hypertension. He was previously on valsartan which was stopped at his previous admission in October for AIN. Has not been resumed at this point. Diastolic blood pressure elevated up to 90 -He is being diuresed, will monitor his BP closely Assessment & Plan (02/03/2025 11:49 AM EDT): Patient with history of hypertension. He was previously on valsartan which was stopped at his previous admission in October for AIN. Has not been resumed at this point. Diastolic blood pressure elevated up to 90 Plan: -He is being diuresed, will monitor his BP closely Assessment & Plan (02/02/2025 10:56 AM EDT): Patient with history of hypertension. He was previously on valsartan which was stopped at his previous admission in October for AIN. Has not been resumed at this point. Diastolic blood pressure elevated up to 90 Plan: -He is being diuresed, will monitor his BP closely Assessment & Plan (02/01/2025 10:56 AM EDT): Patient with history of hypertension. He was previously on valsartan which was stopped at his previous admission in October for AIN. Has not been resumed at this point. Diastolic blood pressure elevated up to 90 Plan: -He is being diuresed, will monitor his BP closely Assessment & Plan (01/31/2025 3:21 PM EDT): Patient with history of hypertension. He was previously on valsartan which was stopped at his previous admission in October for AIN. Has not been resumed at this point. Diastolic blood pressure elevated up to 90 Plan: -He is being diuresed, will monitor his BP closely Assessment & Plan (01/30/2025 7:33 PM EDT): Patient with history of hypertension. He was previously on valsartan which was stopped at his previous admission in October for AIN. Has not been resumed at this point. Diastolic blood pressure elevated up to 90 Plan: -He is being diuresed, will monitor his BP closely Assessment & Plan (11/03/2024 4:18 PM EST): -Hold valsartan in setting of JAX Assessment & Plan (11/02/2024 6:18 PM EST): -Hold valsartan in setting of JAX Assessment & Plan (11/01/2024 5:26 PM EST): -Hold valsartan in setting of JAX Assessment & Plan (10/31/2024 6:28 PM EST): -Hold valsartan in setting of JAX Assessment & Plan (10/30/2024 3:29 PM EST): -Hold valsartan in setting of JAX Assessment & Plan (10/29/2024 6:55 PM EST): -Hold valsartan in setting of JAX Assessment & Plan (10/28/2024 12:41 PM EST): -Hold valsartan in setting of JAX Assessment & Plan (10/27/2024 1:56 PM EST): -Hold valsartan in setting of JAX Assessment & Plan (10/26/2024 12:35 PM EST): -Hold valsartan in setting of JAX Assessment & Plan (10/25/2024 4:07 AM EST): -Hold valsartan in setting of JAX Assessment & Plan (03/04/2024 1:40 PM EDT): His blood pressure is on the low side today, but he has no history of orthostatic hypotension or concerning signs of overtreatment for his hypertension, another recent recordings have been fairly normal, so I think he should continue his regimen without modification. Ischemic cardiomyopathy 03/04/2024 Assessment & Plan (03/04/2024 1:41 PM EDT): Gage was under the impression that he had severe damage to his heart muscle prior to his bypass surgery, however I reassured him that the echocardiogram that was done 2 years ago in [place] showed a relatively preserved ejection fraction, with just some inferior hypokinesis. He is not manifesting any signs or symptoms of volume overload or heart failure. He is not requiring diuretic therapy, and I think his medical regimen is excellent which he should continue without modification. Preop cardiovascular exam 03/04/2024 Assessment & Plan (03/04/2024 1:44 PM EDT): Gage is having vascular surgery next week, and this is a high risk procedure. His RCRI score is 2 based on this procedure, and his history of ischemic heart disease. This puts him at class III risk with a 10% 30-day risk of SC , or cardiac arrest. He is not having any concerning symptoms at this time, so I do not think he needs further diagnostic evaluation or adjustment of his medical regimen prior to proceeding with surgery. Because of low blood pressure today, I would certainly hold his losartan the day before and day of surgery Non-healing wound of right heel 02/26/2024 Assessment & Plan (02/07/2025 12:53 PM EDT): Followed by outpatient Wound Center with [facility]. No s/sx cellulitis or wound infection to R medial heel wound. -Wound RN consult for management while inpatient -Follow up outpatient with [facility] Wound [facility] Assessment & Plan (02/04/2025 9:32 PM EDT): Followed by outpatient Wound Center with [facility]. No s/sx cellulitis or wound infection to R medial heel wound. -Wound RN consult for management while inpatient -Follow up outpatient with [facility] W[facility] Assessment & Plan (02/03/2025 11:49 AM EDT): Followed by outpatient Wound Center with [facility]. No s/sx cellulitis or wound infection to R medial heel wound. Plan: -Wound RN consult for management while inpatient -Follow up outpatient with [facility] W[facility] Assessment & Plan (02/02/2025 10:56 AM EDT): Followed by outpatient Wound Center with [facility]. No s/sx cellulitis or wound infection to R medial heel wound. Plan: -Wound RN consult for management while inpatient -Follow up outpatient with [facility] W[facility] Assessment & Plan (02/01/2025 10:56 AM EDT): Followed by outpatient Wound Center with [facility]. No s/sx cellulitis or wound infection to R medial heel wound. Plan: -Wound RN consult for management while inpatient -Follow up outpatient with [facility] Assessment & Plan (01/31/2025 3:21 PM EDT): Followed by outpatient Wound Center with [facility]. No s/sx cellulitis or wound infection to R medial heel wound. Plan: -Wound RN consult for management while inpatient -Follow up outpatient with [facility] W[facility] Assessment & Plan (01/30/2025 7:33 PM EDT): Followed by outpatient Wound Center with [facility]. No s/sx cellulitis or wound infection to R medial heel wound. Plan: -Wound RN consult for management while inpatient -Follow up outpatient with [facility] Wound [facility] Ischemia of lower extremity 02/26/2024 History of acute inferior wall SC 09/01/2023 Diabetic peripheral neuropathy 12/09/2022 Dyslipidemia 10/17/2022 Assessment & Plan (02/07/2025 12:53 PM EDT): -Continue home statin Assessment & Plan (02/04/2025 9:32 PM EDT): -Continue home statin Assessment & Plan (02/03/2025 11:49 AM EDT): -statin Assessment & Plan (02/02/2025 10:56 AM EDT): -statin Assessment & Plan (02/01/2025 10:56 AM EDT): -statin Assessment & Plan (01/31/2025 3:21 PM EDT): -statin Assessment & Plan (01/30/2025 7:33 PM EDT): Plan: -Check LFTs, if normal start high dose intensity statin per cards recommendations History of coronary artery bypass surgery 2018 Assessment & Plan (02/07/2025 12:53 PM EDT): Patient with history of CAD status post CABG x 2 (2019) -Continue asprin and statin -Further recommendations as noted above Assessment & Plan (02/04/2025 9:32 PM EDT): Patient with history of CAD status post CABG x 2 (2018) -Continue asprin and statin -Further recommendations as noted above Assessment & Plan (02/03/2025 11:49 AM EDT): Patient with history of CAD status post CABG x 2 12/2018. -Continue asprin ans statin Assessment & Plan (02/02/2025 10:56 AM EDT): Patient with history of CAD status post CABG x 2 12/2018. -Continue asprin ans statin Assessment & Plan (02/01/2025 10:56 AM EDT): Patient with history of CAD status post CABG x 2 12/2018. -Continue asprin ans statin Assessment & Plan (01/31/2025 3:21 PM EDT): Patient with history of CAD status post CABG x 2 12/2018. -Continue asprin ans statin Assessment & Plan (01/30/2025 7:33 PM EDT): Patient with history of CAD status post CABG x 2 12/2018. Previously on statin however unclear whether he takes it or not. Awaiting for med rec by pharmacy technology instructor. On aspirin 81 mg. Patient without chest pain presently. Plan: -Monitor on tele -Continue asprin 81 mg daily -Check LFTs, if normal start high dose intensity statin per cards recommendations HLD (hyperlipidemia) 12/21/2018 Assessment & Plan (11/03/2024 4:18 PM EST): -Continue atorvastatin Assessment & Plan (11/02/2024 6:18 PM EST): -Continue atorvastatin Assessment & Plan (11/01/2024 5:26 PM EST): -Continue atorvastatin Assessment & Plan (10/31/2024 6:28 PM EST): -Continue atorvastatin Assessment & Plan (10/30/2024 3:29 PM EST): -Continue atorvastatin Assessment & Plan (10/29/2024 6:55 PM EST): -Continue atorvastatin Assessment & Plan (10/28/2024 12:41 PM EST): -Continue atorvastatin Assessment & Plan (10/27/2024 1:56 PM EST): -Continue atorvastatin Assessment & Plan (10/26/2024 12:35 PM EST): -Continue atorvastatin Assessment & Plan (10/25/2024 4:07 AM EST): -Continue atorvastatin Type 2 diabetes mellitus 12/21/2018 Assessment & Plan (02/08/2025 12:00 AM EDT): Insulin-dependent type 2 diabetes. Previously was on metformin and Jardiance however those were discontinued during his last admission. On Lantus 10 units subcutaneous in am and 20 units nightly and prandial lispro sliding scale. Most recent hemoglobin A1c from 01/28/2025: 6.5%. -Continue home regimen. Assessment & Plan (02/04/2025 9:32 PM EDT): Insulin-dependent type 2 diabetes. Previously was on metformin and Jardiance however those were discontinued during his last admission. On Lantus 10 units subcutaneous in am and 20 units nightly and prandial lispro sliding scale.Most recent hemoglobin A1c from 01/28/2025: 6.5%. Glucose on arrival 236. -[facility]HS -Hypoglycemia protocol -Low dose prandial lispro sliding scale -increase basal glargine 14 units daily, titrate as needed with persistent hyperglycemia Assessment & Plan (02/03/2025 11:49 AM EDT): Insulin-dependent type 2 diabetes. Previously was on metformin and Jardiance however those were discontinued during his last admission. On Lantus 10 units subcutaneous in am and 20 units nightly and prandial lispro sliding scale.Most recent hemoglobin A1c from 01/28/2025: 6.5%. Glucose on arrival 236. Plan: -[facility]HS -Hypoglycemia protocol -Low dose prandial lispro sliding scale -increase basal glargine 14 units daily, titrate as needed with persistent hyperglycemia Assessment & Plan (02/02/2025 10:56 AM EDT): Insulin-dependent type 2 diabetes. Previously was on metformin and Jardiance however those were discontinued during his last admission. On Lantus 10 units subcutaneous in am and 20 units nightly and prandial lispro sliding scale.Most recent hemoglobin A1c from 01/28/2025: 6.5%. Glucose on arrival 236. Plan: -[facility]HS -Hypoglycemia protocol -Low dose prandial lispro sliding scale -increase basal glargine 14 units daily, titrate as needed with persistent hyperglycemia Assessment & Plan (02/01/2025 10:56 AM EDT): Insulin-dependent type 2 diabetes. Previously was on metformin and Jardiance however those were discontinued during his last admission. On Lantus 10 units subcutaneous in am and 20 units nightly and prandial lispro sliding scale.Most recent hemoglobin A1c from 01/28/2025: 6.5%. Glucose on arrival 236. Plan: -[facility]HS -Hypoglycemia protocol -Low dose prandial lispro sliding scale -Continue basal glargine 10 units daily, will hold off on 20 units, titrate as needed with persistent hyperglycemia Assessment & Plan (01/31/2025 3:21 PM EDT): Insulin-dependent type 2 diabetes. Previously was on metformin and Jardiance however those were discontinued during his last admission. On Lantus 10 units subcutaneous in am and 20 units nightly and prandial lispro sliding scale.Most recent hemoglobin A1c from 01/28/2025: 6.5%. Glucose on arrival 236. Plan: -[facility] -Hypoglycemia protocol -Low dose prandial lispro sliding scale -Continue basal glargine 10 units daily, will hold off on 20 units, titrate as needed with persistent hyperglycemia Assessment & Plan (01/30/2025 7:33 PM EDT): Insulin-dependent type 2 diabetes. Previously was on metformin and Jardiance however those were discontinued during his last admission. On Lantus 10 units subcutaneous in am and 20 units nightly and prandial lispro sliding scale.Most recent hemoglobin A1c from 01/28/2025: 6.5%. Glucose on arrival 236. Plan: -Check BG at bedside now, then ACHS, q 6 hours while NPO -Hypoglycemia protocol -Low dose prandial lispro sliding scale -Continue basal glargine 10 units daily, will hold off on 20 units, titrate as needed with persistent hyperglycemia Assessment & Plan (11/03/2024 4:41 PM EST): - Pt is persistently hyperglycemic after being started on prednisone. -Insulin sliding scale - Home metformin to be discontinued on DC in setting of JAX. - Glargine 10U once daily and lispro SSI TID prescribed on DC. Assessment & Plan (11/02/2024 6:18 PM EST): - Pt is persistently hyperglycemic after being started on prednisone. -Insulin sliding scale - Home metformin to be discontinued on DC in setting of JAX. - Glargine 10U once daily ordered - Starlix 60mg TID with meals ordered. Assessment & Plan (11/01/2024 5:26 PM EST): -Insulin sliding scale Assessment & Plan (10/31/2024 6:28 PM EST): -Insulin sliding scale Assessment & Plan (10/30/2024 3:29 PM EST): -Insulin sliding scale Assessment & Plan (10/29/2024 6:55 PM EST): -Insulin sliding scale Assessment & Plan (10/28/2024 12:41 PM EST): -Insulin sliding scale Assessment & Plan (10/27/2024 1:56 PM EST): -Insulin sliding scale Assessment & Plan (10/26/2024 12:35 PM EST): -Insulin sliding scale Assessment & Plan (10/25/2024 4:07 AM EST): -Insulin sliding scale Resolved Problems Problem Noted Date Diagnosed Date Resolved Date Vomiting and diarrhea 10/25/20242024 Assessment & Plan (11/03/2024 4:18 PM EST): Severe gastroenteritis versus colitis. Benign abdomen. Recent ABX use. -resolved, isolation removed Assessment & Plan (11/02/2024 6:18 PM EST): Severe gastroenteritis versus colitis. Benign abdomen. Recent ABX use. -resolved, isolation removed Assessment & Plan (11/01/2024 5:26 PM EST): Severe gastroenteritis versus colitis. Benign abdomen. Recent ABX use. -resolved, isolation removed Assessment & Plan (10/31/2024 6:28 PM EST): Severe gastroenteritis versus colitis. Benign abdomen. Recent ABX use. -resolved, isolation removed Assessment & Plan (10/30/2024 3:29 PM EST): Severe gastroenteritis versus colitis. Benign abdomen. Recent ABX use. -resolved, isolation removed Assessment & Plan (10/29/2024 6:55 PM EST): Severe gastroenteritis versus colitis. Benign abdomen. Recent ABX use. -resolved, isolation removed Assessment & Plan (10/28/2024 12:41 PM EST): Severe gastroenteritis versus colitis. Benign abdomen. Recent ABX use. -resolved, isolation removed Assessment & Plan (10/27/2024 1:56 PM EST): Severe gastroenteritis versus colitis. Benign abdomen. Recent ABX use. -resolved, isolation removed Assessment & Plan (10/26/2024 12:35 PM EST): Seems to be improving. Severe gastroenteritis versus colitis. Benign abdomen. Recent ABX use. -resolved, isolation removed Assessment & Plan (10/25/2024 4:07 AM EST): Seems to be improving. Severe gastroenteritis versus colitis. Benign abdomen. Recent ABX use -Clear liquid diet -Stool studies -GI PCR -C. difficile colitis Chronic heart failure with p reserved ejection fraction 12/09/2022 02/18/2025 Encounters Date Type Department Care Team Description 08/26/2025 2:00 PM EDT Office Visit [facility] [address] [place] [address] Caryn Cid, DETASSELER Biventricular congestive heart failure (HCC) (Primary Dx); Primary hypertension 08/26/2025 Orders Only [facility] [address] [place] [id number] Caryn Cid, DETASSELER 08/05/2025 9:30 AM EDT Office Visit [facility] Neph[facility] [address] [place] [id number] Kelvin Tabor MD Hosni, Mohamad, MD CKD stage 3b, GFR 30-44 ml/min (HCC) (Primary Dx); AIN (acute interstitial nephritis); Primary hypertension from Last 3 Months Family History Medical History Relation Comments Heart attack Brother Osteoarthritis Brother Diabetes Father Heart attack Father Heart disease Father Hypertension Father Heart attack Maternal Grandfather Heart attack Maternal Grandmother Dementia Mother Heart attack Paternal Grandfather Heart attack Paternal Grandmother Relation Status Comments Brother Alive Father Alive Maternal Grandfather Maternal Grandmother Mother Other Alive Paternal Grandfather Paternal Grandmother Social History Tobacco Use Types Packs/Day Years Used Date Smoking Tobacco: Passive Smoke Exposure - Never Smoker Cigarettes 0.3 16.1 - 04/06/2025 Smokeless Tobacco: Never Tobacco Cessation:Counseling Given: Not Answered Comments:2 cigs per day Alcohol Use Standard Drinks/Week Comments Not Currently 1 (1 standard drink = 0.6 oz pur e alcohol) social [facility] Utilities Answer Date Recorded In the past 12 months has [employer], gas, oil, or water company threatened to [...] place to sleep or slept in a skilled nursing (including now)? Yes 03/05/2024 Housing Stability Vital Sign Answer Napoleon e Recorded Unable to Pay for Housing in the Last Year Not o n file 01/30/2025 Number of Times Moved in the Last Year Not on fi le 01/30/2025 At any time in the past 12 m [facility], were you homeless or living in a skilled nursing (including now)? No 01/30/2025 Sex and Gender Information Value Date Recorded Sex Assigned at Male 02/28/2024 7:53 AM EDT Legal Sex Male 8:28 AM EDT Gender Identity Male 02/28/2024 7:53 AM EDT Sexual Orientation Straight 02/28/2024 7: 53 AM EDT Last Filed Vital Signs Vital Sign Reading Time Taken Comments Blood Pressure 104/60 08/26/2025 1:46 PM EDT Pulse 71 08/26/2025 1:46 PM EDT Temperature 36.7 C (98.1 F) 02/14/2025 1:36 PM EDT Respiratory Rate 14 08/05/2025 9:35 AM EDT Oxygen Saturation 100% 08/26/2025 1:46 PM EDT Inhaled Oxygen Concentration - - Weight 96.1 kg (211 lb 12.8 oz) 08/26/2025 1:46 PM EDT Height 182.9 cm (6') 08/05/2025 9:35 AM EDT Body Mass Index 28.73 08/05/2025 9:35 AM EDT Plan of Treatment Upcoming Encounters Date Type Department Care Team (Late st Contact Info) Description 11/04/2025 2:00 PM EST Office Visit [facility] Department of Cardiology [address] [place] [address] Caryn Cid APRN [address] [facility] [place] [address] 12/09/2025 11:00 AM EST Office Visit [facility] Department of Nephrology [address] [place] [address] Raul Thao MD [address] [place] [address] Health Maintenance Due Date Last Done Comments CT Colonography 1957 Colonoscopy 1957 Colorectal Cancer Screening 1957 FIT-DNA (Cologuard) 1957 FIT 1957 FOBT 1957 Flex Sigmoidoscopy - 5y 1957 Medicare Annual Wellness (AWV) 1957 DTaP,Tdap,and Td Vaccines (1 - Tdap) 1975 Diabetes: Retinopathy Screening 1975 Pneumococcal Vaccine, 50+ Years (1 of 2 - PCV) 1976 Zoster Vaccines (1 of 2) 2007 COVID-19 Vaccine (1 - season) 2025 Influenza Vaccine (#1) 2025 09/13/2023 Diabetes: Hemoglobin A1C 09/21/2025 025, 01/28/2025, 11/01/2024, Additional history exists Diabetes: Kidney Health Evaluation 09/19/2026 09/19/2025 HIV Screening Completed 10/28/2024 Hepatitis C Screening Completed 10/28/2024 Diabetes: Urine Microalbumin Discontinued 09/19/2025, 01/30/2025, 10/29/2024, Additional history exists HPV Vaccines Aged Out No longer eligi ble based on patient's age to complete this topic Hepatitis A Vaccines Aged Out No long er eligible based on patient's age to complete this topic Meningococcal Vaccine Aged Out No [place] yamil eligible based on patient's age to complete this topic Medical Devices Implanted Type Area Engineering Mgr Device Identifier Shelf Expiration Date Model / Serial / Lot 6fr Proglide Suture-Mediat ed Closure System, W/Knot Pusher And 7 Suture Tarun - [id number] Implanted:Qty : 1 on 03/05/2024 by Helio Castellon MD at [facility] Closure Device [employer] 12/06/2024 [id number] / / [id number] 8mm X 40cm [employer] Propaten Graft,Thin Wall W/ Removable Rings - [id number] - [id number] Implanted:Qty : 1 on 03/05/2024 by Helio Castellon MD at [facility] Graft Material Right: Leg [employer] 05/02/2027 [id number] / [id number] / [id number] Explanted Type Area Engineering Mgr Device Identifier Shelf Expiration Date Model / Serial / Lot Autism Tutor Ligaclip Multiple Clip - [id number] Explanted:Qty: 1 on 03/05/2024 at [facility] Closure Device [employer] [id number] / / Description:Not an Procedures Procedure Name Priority Date/Time Associated Diagnosis Comments YELLOW NON-PRESERVATIVE HOLD TUBE, URINE Routine 09/19/2025 1:21 PM EST CKD stage 3b, GFR 30-44 ml/min (HCC) URINALYSIS, COMPLETE - MACROSCOPIC AND MICROSCOPIC Routine 09/19/2025 1:21 PM EST CKD stage 3b, GFR 30-44 ml/min (HCC) PROTEIN, RANDOM URINE, WITH CREATININE Routine 09/19/2025 1:21 PM EST CKD stage 3b, GFR 30-44 ml/min (HCC) MICROALBUMIN, URINE, RANDOM WITH CREATININE Routine 09/19/2025 1:21 PM EST CKD stage 3b, GFR 30-44 ml/min (HCC) URINALYSIS, COMPLETE - MACROSCOPIC AND MICROSCOPIC (PANEL) Routine 09/19/2025 1:21 PM EST CKD stage 3b, GFR 30-44 ml/min (HCC) INTACT PARATHYROID HORMONE Routine 09/19/2025 1:21 PM EST CKD stage 3b, GFR 30-44 ml/min (HCC) VITAMIN D 25 HYDROXY Routine 09/19/2025 1:21 PM EST CKD stage 3b, GFR 30-44 ml/min (HCC) PHOSPHORUS Routine 09/19/2025 1:21 PM EST CKD stage 3b, GFR 30-44 ml/min (HCC) HEMOGLOBIN AND HEMATOCRIT Routine 09/19/2025 1:21 PM EST CKD stage 3b, GFR 30-44 ml/min (HCC) BASIC METABOLIC PANEL Routine 09/19/2025 1:21 PM EST Elevated serum creatinine POCT URINALYSIS DIPSTICK, AUTOMATED W/O MICROSCOPY Routine 08/05/2025 9:40 AM EDT CKD stage 3b, GFR 30-44 ml/min (HCC) POCT URINALYSIS DIPSTICK, AUTOMATED W/O MICROSCOPY Routine 08/05/2025 9:36 AM EDT POCT HEMOGLOBIN, A1C Routine 03/21/2025 11:47 AM EDT HEPATITIS C ANTIBODY Add-On 10/28/2024 7:43 AM EST HIV COMBO ANTIGEN/ANTIBODY Add-On 10/28/2024 7:43 AM EST from Last 3 Months or Most Recently Relevant to Health Maintenance Results * Yellow top, urine (09/19/2025 1:21 PM EST) Urine Urine specimen / Unknown Non-blood Collection / Unknown 09/19/2025 1:21 PM EST 09/19/2025 1:21 PM EST Kelvin Tabor MD LAB URINE ORDERABLES Final R esult [facility] [address] [place] [address], [place] [phone] * (ABNORMAL) Hemoglobin and Hematocrit (09/19/2025 1:21 PM EST) Hemoglobin 11.3(L) 13.0 - 18.0 g/dL 09/19/2025 7:01 PM EST [facility] Hematocrit 33.8(L) 40.0 - 52.0 % 09/19/2025 7:01 PM EST [facility] Blood Venous blood specimen / Unknown Venipuncture / Unknown 09/19/2025 1:21 PM EST 09/19/2025 1:21 PM EST Kelvin Tabor MD LAB BLOOD ORDERABLES Final R esult [facility] [address] [place] [address], [place] [phone] * (ABNORMAL) Microalbumin, Urine, Random with Creatinine (09/19/2025 1:21 PM EST) Creatinine, Urine, Random 104 mg/dL 09/19/2025 7:13 PM EST [facility] Microalbumin, Urine, Random 5.0 mg/dL 09/19/2025 7:13 PM EST [facility] Microalbumin/C reat Ratio 48(H) 2 - 20 mg/g Creat 09/19/2025 7:13 PM EST [facility] Urine Urine specimen / Unknown Non-blood Collection / Unknown 09/19/2025 1:21 PM EST 09/19/2025 1:21 PM EST Kelvin Tabor MD LAB URINE ORDERABLES Final R esult Performing Organization Address City/[facility] Co de Phone Number [facility] [address] [place] [address], * Protein, random urine, with creatinine (09/19/2025 1:21 PM EST) Protein, Urine, Random 18 mg/dL 09/19/2025 7:13 PM EST [facility] Comment:The laboratory does not have established reference ranges for this test. Interpretation of results is at the discretion of the ordering physician. Urine Protein (mg)/ Creatinine (mg) ratio 0.17 <0.20 Ratio 09/19/2025 7:13 PM EST [facility] Urine Urine specimen / Unknown Non-blood Collection / Unknown 09/19/2025 1:21 PM EST 09/19/2025 1:21 PM EST Kelvin Tabor MD LAB URINE ORDERABLES Final R esult Performing Organization Address City/[facility]/ZIP Co de Phone Number [facility] [address] [place] [address], [place] [phone] * (ABNORMAL) Vitamin D 25 hydroxy (09/19/2025 1:21 PM EST) Vit D, 25-Hydroxy 9(L) >=30 ng/mL 09/19/2025 7:36 PM EST [facility] Comment: Twenty five-hydroxy vitamin D assay measures 100% of 25-OH vitamin D3 and 75% of 25-OH vitamin D2 (plant origin). Current studies recommend supplementation with vitamin D3. <20 ng/mL - indicative of deficiency 20 - 29 ng/mL - suggests insufficiency 30 - 80 ng/mL - optimal >80 ng/mL - possible toxicity but usually only at very high levels. Blood Venous blood specimen / Unknown Venipuncture / Unknown 09/19/2025 1:21 PM EST 09/19/2025 1:21 PM EST Kelvin Tabor MD LAB BLOOD ORDERABLES NO STAT Final Result [facility] [address] [place] [address], [place] [phone] * (ABNORMAL) Urinalysis, Complete - macroscopic and microscopic (09/19/2025 1:21 PM EST) Pathologist [facility] Color Yellow Yellow, Straw, Dark yellow 09/19/2025 7:05 PM EST [facility] Clarity Clear Clear 09/19/2025 7:05 PM EST [facility] Specific [place]ahl 1.020 >1.005 - <1.030 09/19/2025 7:05 PM EST [facility] pH 5.0 5.0 - 8.0 09/19/2025 7:05 PM EST [facility] Glucose Qual >=1000(A) Negative mg/dL 09/19/2025 7:05 PM EST [facility] Protein, Qual Trace Negative, Trace mg/dL 09/19/2025 7:05 PM EST [facility] Ketones, Urine Negative Negative mg/dL 09/19/2025 7:05 PM [facility] Bilirubin, Urine Negative Negative 09/19/20 7:05 PM [facility] Hemoglobin Negative Negative 09/19/2025 7:05 PM [facility] Nitrite Negative Negative 09/19/2025 7:05 PM [facility] Urobilinogen 0.2 0.2 - 1.0 EU/dL 09/19/2025 7:05 PM [facility] Leukocytes Negative Negative 09/19/2025 7:05 PM [facility] WBC 0-5 0 - 5 /hpf 09/19/2025 7:05 PM [facility] RBC 0-2 0 - 2 /hpf 09/19/2025 7:05 PM [facility] Epithelial Cells None Seen None Seen /hpf 09/19/2025 7:05 PM EST [facility] Bacteria None Seen Negative 09/19/2025 7:05 PM [facility] Casts 0-2 0-2, 3-5 lpf 09/19/2025 7:05 PM [facility] Urine Urine specimen obtained by clean catch procedure / Unknown Non-blood Collection / Unknown 09/19/2025 1:21 PM EST 09/19/2025 1:21 PM EST us Kelvin Tabor MD LAB URINE ORDERABLES Final R esult [facility] [address] [place] [address], * Phosphorus (09/19/2025 1:21 PM EST) PHOSPHORUS 3.7 2.4 - 4.8 mg/dL 09/19/2025 8:56 PM EST [facility] Blood Venous blood specimen / Unknown Venipuncture / Unknown 09/19/2025 1:21 PM EST 09/19/2025 1:21 PM EST Kelvin Tabor MD LAB BLOOD ORDERABLES Final R esult Performing Organization Address City/[facility]/ZIP Co de Phone Number [facility] [address] [place] [address], [place] [phone] * (ABNORMAL) Intact Parathyroid Hormone (09/19/2025 1:21 PM EST) PTH 254(H) 15 - 88 pg/mL 09/19/2025 7:38 PM EST [facility] Blood Venous blood specimen / Unknown Venipuncture / Unknown 09/19/2025 1:21 PM EST 09/19/2025 1:21 PM EST Kelvin Tabor MD LAB BLOOD ORDERABLES Final R esult Performing Organization Address City/[facility]/ZIP Co de Phone Number [facility] [address] [place] [address], [place] [phone] * (ABNORMAL) Basic metabolic panel (09/19/2025 1:21 PM EST) Sodium 135(L) 137 - 144 mmol/L 09/19/2025 7:28 PM EST [facility] Potassium 4.9 3.6 - 5.1 mmol/L 09/19/2025 7:28 PM EST [facility] Chloride 109 100 - 111 mmol/L 09/19/2025 7:28 PM EST [facility] CO2 16(L) 23 - 32 mmol/L 09/19/2025 7:28 PM EST [facility] Anion gap 10 3 - 11 mmol/L 09/19/2025 7:28 PM EST [facility] BUN 46(H) 8 - 24 mg/dL 09/19/2025 7:28 PM EST [facility] Creatinine 2.30(H) 0.60 - 1.20 mg/dL 09/19/2025 7:28 PM EST [facility] Glucose 170 70 - 200 mg/dL 09/19/2025 7:28 PM EST [facility] Comment: Normal fasting glucose 75-99 mg/dL Impaired fasting glucose 100 - 125 mg/dL Fasting glucose >125 mg/dL - provisional diagnosis of diabetes mellitus Random glucose >= 200 mg/dl is considered diagnostic for diabetes ADA Guidelines: Classification and Diagnosis of Diabetes: Standards of Medical Care in Diabetes - 202, Diabetes Care 2020; S15-S33. Calcium 9.0 8.4 - 10.2 mg/dL 09/19/2025 7:28 PM EST [facility] eGFR 30(L) >60 mL/min/1. 73m*2 09/19/2025 7:28 PM EST [facility] Comment: Calculation based on the Chronic Kidney Disease Epidemiology Collaboration (CKD-EPI) equation refit without adjustment for race. Chronic Kidney Disease less than 60 ml/min/1.73 m2 Kidney Failure less than 15 ml/min/1.73 m2 Age (Years) Average GFR 20 - 29 116 ml/min/1.73 m2 30 - 39 107 ml/min/1.73 m2 40 - 49 99 ml/min/1.73 m2 50 - 59 93 ml/min/1.73 m2 60 - 69 85 ml/min/1.73 m2 70 + 75 ml/min/1.73 m2 Pursuant to [place] Public Act 06-120(1)(b)(1). The 2020 CKD-EPI calculation used to estimate eGFR has only been validated for patients 18 years or older. Blood Venous blood specimen / Unknown Venipuncture / Unknown 09/19/2025 1:21 PM EST 09/19/2025 1:21 PM EST us Rubén Luu MD LAB BLOOD ORDERABLES Final Resul t [facility] [address] [place] [address], * POCT urinalysis dipstick, automated w/o microscopy (08/05/2025 9:40 AM EDT) POCT URINALYSIS DIPSTICK Yes Urine 08/05/2025 9:40 AM EDT Lelia Hendrix MD POCT ORDERABLES NO CHARGE Fin al Result * (ABNORMAL) POCT Urinalysis Dipstick, Automated w/o microscopy (08/05/2025 9:36 AM EDT) Color, UA Yellow Yellow 08/05/2025 9:38 AM EDT [facility] Comment:CLIA#: [id number] Clarity, UA Clear Clear 08/05/2025 9:38 AM EDT [facility] Glucose, UA 250(A) Negative mg/dL 08/05/2025 9:38 AM EDT [facility] Bilirubin, UA Negative Negative 08/05/2025 9:38 AM EDT [facility] Ketones, Urine Negative Negative, >=160 mg/dL 08/05/2025 9:38 AM EDT [facility] Specific [place], UA 1.010 1.003 - 1.035 08/05/2025 9:38 AM EDT [facility] Blood, UA Negative Negative 08/05/2025 9:38 AM EDT [facility] pH, UA 5.5 5.0 - 8.0 08/05/2025 9:38 AM EDT [facility] Protein, UA Negative Negative mg/dL 08/05/2025 9:38 AM EDT [facility] Urobilinogen, UA 0.2 0.2, 1.0 EU/dL 08/05/2025 9:38 AM EDT [facility] LABORATORY Nitrite, UA Negative Negative 08/05/2025 9:38 AM EDT [facility] Leukocytes esterase, UA Negative Negative 08/05/2025 9:38 AM EDT [facility] Test strip lot # 08/05/2025 9:38 AM EDT [facility] Test strip exp. date 08/05/2025 9:38 AM EDT [facility] School Cleaner ID [id number] 08/05/2025 9:38 AM EDT [facility] Instrument ID [id number] 08/05/2025 9:38 AM EDT [facility] Urine 08/05/2025 9:36 AM EDT 08/05/2025 9:37 AM EDT Raul Thao MD LAB POCT ORDERABLES - DEVICE Fi nal Result [facility] [address] [place] [address], * POCT Hemoglobin, A1c (03/21/2025 11:47 AM EDT) POCT Hemoglobin A1C 7.7 4.4 - 6.4 % 03/21/2025 11:53 AM EDT [facility] Comment:CLIA#: [id number] Blood 03/21/2025 11:4 7 AM EDT 03/21/2025 11:53 AM EDT Narrative [facility] - 03/21/2025 11:53 AM EDT Point of Care Device. Please refer to collection date and time. Mich BREWER LAB POCT ORDERABLES - DEVICE Final Result Performing Organization Address City/[facility]/ZIP Co de Phone Number [facility] [address] [place] [address], [place] [phone] * HIV combo antigen/antibody (10/28/2024 7:43 AM EST) HIV Combo AB/AG Negative Negative 10/28/2024 1:41 PM EST [facility] Blood Venous blood specimen / Unknown Venipuncture / Unknown 10/28/2024 7:43 AM EST 10/28/2024 8:10 AM EST Narrative [facility] - 10/28/2024 1:41 PM EST This test is a 4th generation HIV Antigen-Antibody Combination assay, using a chemiluminescent microparticle immunoassay, for the simultaneous qualitative detection of human immuno- deficiency virus (HIV) p24 antigen and antibodies to HIV type 1 (HIV-1) and/or HIV type 2 (HIV-2) in human serum or plasma. The [employer] HIV Ag/Ab Combo assay is intended to be used as an aid in the diagnosis of HIV-1 and/or HIV-2 infection, including acute or primary HIV-1 infection. Initially-positive tests are repeated in duplicate. Repeat-positive tests will be confirmed for HIV by a HIV-1/HIV-2 rapid supplemental/ differentiation antibody assay. This testing algorithm is in line with the current CDC recommendations. us Tej Frank DO LAB BLOOD ORDERABLES NO STAT F inal Result [facility] [address] [place] [address], * Hepatitis C antibody (10/28/2024 7:43 AM EST) Hepatitis C Antibody Negative Negative 10/28/2024 1:40 PM EST [facility] Comment:Anti-HCV (HCVAb) Not Detected. Patient is presumed not to be infected with HCV. The possibility of exposure to HCV cannot be excluded. Blood Venous blood specimen / Unknown Venipuncture / Unknown 10/28/2024 7:43 AM EST 10/28/2024 8:10 AM EST us Tej D Frank DO LAB BLOOD ORDERABLES NO STAT F inal Result [facility] [address] [place] [address], [place] [phone] from Last 3 Months or Most Recently Relevant to Health Maintenance Insurance [facility] MEDIC[facility] Advance Directives For more information, please contact: [phone] * Full Code (Latest Code Status on File) Date Activated Date Inactivated Comments 01/30/2025 2:29 PM 02/07/2025 6:49 PM * Full Code Date Activated Date Inactivated Comments 01/30/2025 2:04 PM 01/30/2025 2:29 PM * Full Code Date Activated Date Inactivated Comments 10/25/2024 1:26 AM 11/03/2024 5:53 PM * Full Code Date Activated Date Inactivated Comments 10/25/2024 12:17 AM 10/25/2024 1:26 AM * Full Code Date Activated Date Inactivated Comments 03/05/2024 6:04 PM 03/07/2024 1:38 PM Care Teams Report Programmer Relationship Specialty Start Date End Date Mich Grimes PA [address] [address] PCP - General Internal Medicine 02/28/24
--- OUTSIDE RECORDS SUMMARY | 2025-10-24 20:39 | XMS_ITS | Encounter Summary ---
Author Organization [employer] [facility] Address [facility] [employer] [facility] [address] [place] [address] Phone Care Team Providers Care Craft Artist Name Role Phone Priya Kyle MD Unavailable [phone] Encounter Details Date Type Department Care Team (Late st Contact Info) Description 01/15/2024 Procedure Pass [facility] Imaging, [place] [address] [place] [address] Social History Tobacco Use Types Packs/Day Years [...] high school, GED, job training, learning the Belarusian language, technical skills, or developing parenting skills)? [...] documented as of this encounter Care Teams Craft Artist Relationship Specialty Start Date End Date Pryia Kyle MD [address] [place] [id number] [email or web address] Attributed Provider 11/12/22 03/15/24 documented as of this encounter Additional Source Comments The information contained in this document represents components of the legal health record. It is not the complete legal health record.[facility]
--- OUTSIDE RECORDS SUMMARY | 2025-10-24 20:39 | XMS_ITS | Encounter Summary ---
Author Organization [facility] Address [facility] access hospital [employer] [facility] [address] [place] [address] Phone Care Team Providers Care Tractor Driver Teamster Name Role Phone Priya Kyle MD Unavailable [phone] Encounter Details Date Type Department Care Team (Late st Contact Info) Description 12/23/2023 Procedure Pass [facility] [address] [place] [address] Social History Tobacco Use Types Packs/Day Years [...] high school, GED, job training, learning the Macedonian language, technical skills, or developing parenting skills)? [...] documented as of this encounter Care Teams Tractor Driver Teamster Relationship Specialty Start Date End Date Priya Kyle MD [address] [place] [address] [email or web address] Attributed Provider 11/12/22 03/15/24 documented as of this encounter Additional Source Comments The information contained in this document represents components of the legal health record. It is not the complete legal health record.[facility]
--- OUTSIDE RECORDS SUMMARY | 2025-10-24 20:39 | XMS_ITS | Encounter Summary ---
Author Organization [employer] [facility] Address [address] [place] [address] Phone Care Team Providers Care Topstitcher Lockstitch Name Role Phone Priya Kyle MD Unavailable [phone] Encounter Details Date Type Department Care Team ([facility] st Contact Info) Description 12/09/2022 Procedure Pass [facility] [address] [facility] [address] [place] [address] Social History Tobacco Use Types Packs/Day Years [...] high school, GED, job training, learning the Indonesian language, technical skills, or developing parenting skills)? [...] documented as of this encounter Care Teams Topstitcher Lockstitch Relationship Specialty Start Date End Date Priya Kyle MD [address] [place] [phone] [email or web address] Attributed Provider 11/12/22 03/15/24 documented as of this encounter Additional Source Comments The information contained in this document represents components of the legal health record. It is not the complete legal health record.[facility]
--- OUTSIDE RECORDS SUMMARY | 2025-10-24 20:39 | XMS_ITS | Encounter Summary ---
Author Organization [facility] Address [address] [place] [address] Care Team Providers Care Insurance Underwriter Sales Name Role Phone Mich Grimes Primary Care Provider [phone] Encounter Details Date Type Department Care Team (Late st Contact Info) Description 12/27/[address] [facility] Department of Internal Medicine [address] [facility],[address] [place], [place] [id number] Alyssa Saavedra, [employer] [address] [facility], [address] [facility] [place] [address] Social History Tobacco Use Types Packs/Day Years Used Date Smoking Tobacco: Every Day Cigarettes 0.3 16.7 Started: 02/27/2009 Smokeless Tobacco: Never Comments:2 cigs per day Alcohol Use Standard Drinks/Week Comments Yes 1 (1 standard drink = 0.6 oz pur e alcohol) social [facility] Utilities Answer Date Recorded In the past 12 months has e [employer]!, gas, oil, or water [employer] threatened to shut off services in your [...] to sleep or slept in a senior care (including now)? Yes 03/05/2024 Sex and Gender [...] Description 11/04/2025 2:00 PM EST Office Visit [facility] Department of Cardiology [address] [place] [address] Caryn Cid APRN [address] [facility] [place] [address] 12/09/2025 11:00 AM EST Office Visit [facility] Department of Nephrology [address] [place] [address] Raul Thao MD [address] [place] [address] documented as of this encounter Visit Diagnoses Not on filedocumented in this encounter Care Teams Insurance Underwriter Sales Relationship Specialty Start Date End Date Mich Grimes PA [address] [facility] [address] [place] [address] PCP - General Internal Medicine 02/28/24 documented as of this encounter
[2025-10-24 20:40] LABS: MANUAL DIFF FLAG NO
[2025-10-24 20:43] LABS: Hematocrit 31.4 % (42.0-52.0); Hemoglobin 10.7 g/dl (14.0-18.0); Imm Gran Abs Auto 0.03 X10*3/uL (0.00-0.03); Imm Gran Pct Auto 0.4 % (0.0-0.4); Lymphocytes Absolute Auto 1.0 X10*3/uL (1.2-4.9); Mean Corpuscular HGB Conc 34.1 g/dl (31.0-36.0); Mean Corpuscular Hemoglobin 31.7 pg (27.0-33.0); Mean Corpuscular Volume 92.9 fL (80.0-98.0); NRBC Abs Auto 0.000 X10*3/uL (0.0-0.012); NRBC Pct Auto 0.0 /100WBC (0.0-0.2); Platelet Count 171 X10*3/uL (160-400); Red Blood Count 3.38 X10*6/uL (4.60-5.80); White Blood Count 8.4 X10*3/uL (4.8-10.8)
[2025-10-24 21:08] LABS: Anion Gap 15 (12-20); Blood Urea Nitrogen 40 mg/dL (9-16); Calcium 9.1 mg/dL (8.4-10.2); Carbon Dioxide 18 mmol/L (22-29); Chloride 108 mmol/L (96-108); Estimated Glomerular Filt Rate 32; Potassium 5.5 mmol/L (3.3-5.1); Sodium 135 mmol/L (135-145)
== END 2025-10-24 20:23 | disposition home or self-care (01) ==
LOC: HO.LNP 20:22
PROVIDERS: Visit Provider Internal Medicine Cardiovascular Disease
DX: I50.82 Biventricular heart failure (principal)
CPT/HCPCS: 80048; 85025